=== PATIENT | female | born 1965 | race Caucasian/White ===

== ENCOUNTER 2021-04-09 10:33 | Outpatient (CLI) | payer OTHER, SELFPAY ==
--- NOTE | ~2021-04-09 | XR_ITS ---
XR knee LT 3V 04/09/2021 11:03 INDICATION: Osteoarthritis PROCEDURE: 3 views left knee COMPARISON: No prior studies for comparison. FINDINGS: Fracture, dislocation or subluxation is not identified. No significant joint space narrowin g. No joint effusion. The soft tissues appear within normal limits. No foreign bodies are identified . IMPRESSION: 1: No significant bone or joint abnormality. Reviewed, dictated and finalized at location A.
--- NOTE | ~2021-04-09 | XR_ITS ---
XR knee RT 3V 04/09/2021 11:03 INDICATION: Right knee pain PROCEDURE: 3 views right knee COMPARISON: No prior studies for comparison. FINDINGS: Fracture, dislocation or subluxation is not identified. No significant joint effusion. The soft tissues appear within normal limits. No foreign bodies are identified. IMPRESSION: 1: NO ACUTE BONE OR JOINT ABNORMALITY IDENTIFIED. Reviewed, dictated and finalized at location A.
--- NOTE | ~2021-04-09 | XR_ITS ---
XR hip BI 2V w AP pelvis DATE: 04/09/2021 11:03 INDICATION: Osteoarthritis TECHNIQUE: AP pelvis. AP and lateral views of each hip. COMPARISON: None FINDINGS: No pelvic fracture or bone destruction. The pubic symphysis and sacroiliac joints are intac t. Hip joint spaces appear symmetric and relatively preserved. No fracture or dislocation, avascular necrosis of either hip. There is a 12 mm benign-appearing lucency with sclerotic margins at the upper lateral left femoral ne ck area There is a smooth chronic approximately 6.6 x 11 mm bony density at the upper aspect of the left grea ter trochanter. IMPRESSION: Benign findings of left hip Reviewed, dictated and finalized at location A. IMPRESSION: Benign findings of left hip
== END 2021-04-09 10:34 | disposition home or self-care (01) ==
LOC: ANHIMG 10:38
PROVIDERS: PCP Internal Medicine; Visit Provider Internal Medicine
DX: M19.90 Unspecified osteoarthritis, unspecified site (principal)
CPT/HCPCS: 73521; 73562

== ENCOUNTER 2021-04-16 07:47 | Outpatient (CLI) | payer OTHER, SELFPAY ==
--- NOTE | ~2021-04-16 | NM_ITS ---
NM stress w perf spect multi Procedure: The patient was stressed using Modified Camden protocol. Prior to the end of exercise 32.5 mCi Tc 99m IV administered. Rest imaging performed following administration of 10.5 mCi Tc 99m IV. Images were reformatted into short axis, horizontal and vertical long axis sections for visual and q uantitative analysis. Indication: Chest pain Comparison: None Findings: Computer assisted qualitative and quantitative analysis of the immediate and delayed images revealed normal left ventricular perfusion without evidence of fixed or reversible perfusion abnorma lity to suggest ischemia or infarction. Normal left ventricular cavity size, wall motion and ejectio n fraction. Left ventricular ejection fraction measures 75%. Impression: 1: No scintigraphic evidence of resting or stress induced perfusion abnormality. 2: Normal left ventricle ejection fraction measuring 75%. Reviewed, dictated and finalized at location A. Impression: 1: No scintigraphic evidence of resting or stress induced perfusion abnormality . 2: Normal left ventricle ejection fraction measuring 75%.
--- NOTE | 2021-04-16 07:53 | ECHO_ITS ---
Patient Info Name: Velia Joyner Age: 56 years : 1965 Gender: Female Ht: 63 in Wt: 138 lbs BSA: 1.68 m2 HR: 72 bpm BP: 141 / 90 mmHg Heart Rhythm: Sinus Rhythm Exam Date: 04/16/2021 8:02 AM Exam Location: [facility] Pulmonary Patient Status: Outpatient Admit Date: 04/16/2021 Staff Ordering Physician: Daniel Olmedo DO Kennel Hand: Vanda Park RDCS Attending Provider: Daniel Olmedo DO Exam Type: CA echo doppler color flow Study Info Indications R07.89 - Other chest pain Complete two-dimensional, color flow and Doppler transthoracic echocardiogram is performed. Summary 1. Complete two-dimensional, color flow and Doppler transthoracic echocardiogram is performed. 2. Left ventricular chamber dimension is normal. 3. Left ventricular systolic function is normal, estimated at 60-65%. 4. The left ventricular diastolic function is abnormal. 5. E/e' 10 is mildly elevated. Left Ventricle E/e' 10 is mildly elevated. Left ventricular chamber dimension is normal. Left ventricular systolic function is normal, estimated at 60-65%. The left ventricular diastolic function is abnormal. Right Ventricle Right ventricular chamber dimension is normal. Right ventricular systolic function is normal. Left Atria Left atrial chamber dimension is normal. Right Atria Right atrial chamber dimension is normal. Aortic Valve The aortic valve is trileaflet. There is no aortic valve stenosis. There is no aortic valve regurgitation. Pulmonic Valve There is no pulmonic regurgitation. Mitral Valve There is no mitral valve stenosis. There is no mitral valve regurgitation. Tricuspid Valve There is no tricuspid valve regurgitation. Pericardium/Pleural There is no pericardial effusion. Inferior Vena Cava Normal inferior vena cava with >50% collapse upon inspiration consistent with normal right atrial pressure, 5 mmHg. Aorta The aortic root size at the sinus of Valsalva is normal. Left Ventricular Outflow Tract Name Value Normal LVOT 2D LVOT Diameter 2.2 cm LVOT Doppler LVOT Peak Gradient 7 mmHg LVOT Mean Gradient 4 mmHg LVOT VTI 31 cm LVOT VTI/AV VTI Ratio 0.8 LVOT Stroke Volume 123 ml LVOT CO 7.8 l/min LVOT CI 4.6 l/min/m2 Pulmonic Valve Name Value Normal RVOT Doppler RVOT Peak Gradient 1 mmHg PV Doppler PV Peak Gradient 3 mmHg Mitral Valve Name Value Normal
--- NOTE | 2021-04-16 07:53 | EST_ITS ---
Patient Info Name: Velia Joyner Age: 56 years : 1965 Gender: Female Ht: 63 in Wt: 138 lbs BSA: 1.68 m2 HR: 67 bpm BP: 148 / 95 mmHg Exam Date: 04/16/2021 10:02 AM Exam Location: [facility] Stress Patient Status: Outpatient Admit Date: 04/16/2021 Staff Ordering Physician: Daniel Olmedo DO Attending Provider: Daniel Olmedo DO Exercise Technologist: Елена Winkler CT Exercise Physician: Daniel Olmedo DO Exam Type: CA stress test treadmill w NM Study Info A nuclear stress test was performed. Summary 1. 1. Negative [place] exercise stress test for ischemic ST changes by ECG criteria. 2. 2. Good functional capacity, achieving 10 METs of workload. 3. 3. Appropriate HR response to exercise. 4. 4. Appropriate HR recovery at 1 minute post exercise. 5. 5. Nuclear scan to follow and will be reported separately. Please correlate with it. 6. 6. Patient informed of the above results. Protocol: [place]den Stress ECG Details Stage: REST Duration (min): 1 min : 3 sec Speed (mph): 0.0 Grade (%): 0 HR (bpm): 69 SBP (mmHg): 148 DBP (mmHg): 95 METS: --- Stage: REST Duration (min): 10 min : 55 sec Speed (mph): 0.0 Grade (%): 0 HR (bpm): 72 SBP (mmHg): 148 DBP (mmHg): 95 METS: --- Stage: STAGE 1 Duration (min): 1 min : 0 sec Speed (mph): 1.7 Grade (%): 10 HR (bpm): 105 SBP (mmHg): 148 DBP (mmHg): 95 METS: --- Stage: STAGE 1 Duration (min): 2 min : 0 sec Speed (mph): 1.7 Grade (%): 10 HR (bpm): 108 SBP (mmHg): 148 DBP (mmHg): 95 METS: --- Stage: STAGE 1 Duration (min): 3 min : 0 sec Speed (mph): 1.7 Grade (%): 10 HR (bpm): 110 SBP (mmHg): 158 DBP (mmHg): 93 METS: --- Stage: STAGE 2 Duration (min): 1 min : 0 sec Speed (mph): 2.5 Grade (%): 12 HR (bpm): 114 SBP (mmHg): 158 DBP (mmHg): 93 METS: --- Stage: STAGE 2 Duration (min): 2 min : 0 sec Speed (mph): 2.5 Grade (%): 12 HR (bpm): 121 SBP (mmHg): 162 DBP (mmHg): 98 METS: --- Stage: STAGE 2 Duration (min): 3 min : 0 sec Speed (mph): 2.5 Grade (%): 12 HR (bpm): 125 SBP (mmHg): 162 DBP (mmHg): 98 METS: --- Stage: STAGE 3 Duration (min): 1 min : 0 sec Speed (mph): 3.4 Grade (%): 14 HR (bpm): 136 SBP (mmHg): 163 DBP (mmHg): 102 METS: --- Stage: STAGE 3 Duration (min): 2 min : 0 sec Speed (mph): 3.4 Grade (%): 14 HR (bpm): 145 SBP (mmHg): 163 DBP (mmHg): 102 METS: --- Stage: STAGE 3 Duration (min): 2 min : 15 sec Speed (mph): 3.4 Grade (%): 14 HR (bpm): 145 SBP (mmHg): 163 DBP (mmHg): 102 METS: --- Stage: RECOVERY Duration (min): 0 min : 14 sec Speed (mph): 1.5 Grade (%): 0 HR (bpm): 145 SBP (mmHg): 190 DBP (mmHg): 112 METS: --- Rest HR: 72 bpm Peak HR: 146 bpm Rest Sys BP: 148 mm
== END 2021-04-16 07:48 | disposition home or self-care (01) ==
PROVIDERS: PCP Internal Medicine; Visit Provider Internal Medicine Cardiovascular Disease
DX: R06.00 Dyspnea, unspecified (principal); R07.9 Chest pain, unspecified
CPT/HCPCS: 77063; 77067; 78452; 93017; 93306; A9502

== ENCOUNTER 2021-04-16 14:46 | Outpatient (CLI) | payer OTHER, SELFPAY ==
--- NOTE | ~2021-04-16 | MM_ITS ---
EXAMINATION: MM scrn remedios implant BI w yandy HISTORY: Screening mammogram TECHNIQUE: Craniocaudal and mediolateral oblique 3-D tomosynthesis images with implant displacement a nd synthetic 2-D images were generated. Craniocaudal and mediolateral oblique views of the breasts wi thout implant displacement were obtained using full field digital mammography. CAD analysis was submi tted and interpreted. COMPARISON: 06/22/2007 bilateral implant digital screening mammogram BREAST PARENCHYMAL COMPOSITION: There are scattered areas of fibroglandular density. FINDINGS: Status post bilateral augmentation mammoplasty There is no evidence of suspicious mass, claudia cification, or architectural distortion to suggest malignancy in either breast. There has been no ashley picious interval change. IMPRESSION: 1. No mammographic evidence of malignancy. 2. Recommend routine screening mammography in one year. BI-RADS Category 1: Negative Reviewed, dictated and finalized at location A.
== END 2021-04-16 14:47 | disposition home or self-care (01) ==
LOC: ANHIMG 14:48
PROVIDERS: PCP Internal Medicine; Visit Provider Internal Medicine
DX: Z12.31 Encounter for screening mammogram for malignant neoplasm of breast (principal)
CPT/HCPCS: 77063; 77067

== ENCOUNTER 2021-09-10 12:44 | Outpatient (CLI) | payer OTHER, SELFPAY ==
--- NOTE | 2021-09-10 16:20 | WPDPFTINT ---
PFT Procedure Performed PFT Procedure Performed Spirometry with Pre/Post Bronchodilator Plethysmography (Lung Vol) Diffusing Cap (DLCO) Flow Vol Loop PFT Interpretation This is a pulmonary function test with pre and post-bronchodilator spirometry, plethysmography and diffusing capacity. The test was performed and results interpreted in accordance with the 2019 and 2005 ATS/ERS Task Force guidelines respectively using the Global Lung Function Initiative-2012 reference equations. Patient demonstrated good effort and cooperation. Reproducibility criteria were met. The quality of the pre bronchodilator spirometry maneuver was Grade C and post bronchodilator spirometry maneuver was Grade B. Findings: Spirometry: The contour of the inspiratory and expiratory flow tracing are normal. The pre bronchodilator FVC is 3.54 L, 105% predicted. The pre bronchodilator FEV1 is 2.57 L, 96% predicted. The FEV1: FVC ratio 73%. The post bronchodilator FVC is 3.62 L, representing a 2% increase. The post bronchodilator FEV1 is 2.92 L, representing a 14% increase. The post bronchodilator FEV1: FVC ratio is 81%. Plethysmography: The total lung capacity is 5.74 L, 110% predicted. The functional residual capacity is 3.09 L, 105% predicted. The residual volume is 2.20 L, 111% predicted. Diffusing capacity: The diffusing capacity on adjusted for hemoglobin is 18.6, 83% predicted. The diffusing capacity adjusted for alveolar volume is 3.70, 83% predicted. Impression: The spirometry is normal without evidence of an obstructive abnormality. There is significant improvement after inhaling a single dose of albuterol. The lung volumes are normal. The diffusing capacity is normal. There are no prior studies for comparison
== END 2021-09-10 12:45 | disposition home or self-care (01) ==
PROVIDERS: Visit Provider Internal Medicine Cardiovascular Disease
DX: R06.00 Dyspnea, unspecified (principal)
CPT/HCPCS: 94060; 94726; 94729

== ENCOUNTER 2021-11-27 08:02 | Outpatient (CLI) | payer OTHER, SELFPAY ==
--- NOTE | 2021-12-03 12:45 | WPDHOMESLEEP ---
Sleep Study - Home Unattended Date of Study: 11/27/21 Ordering Provider: Daniel Olmedo DO Interpreting Provider: Rebekah Romano MD Home Sleep Study Type: Apnea Link Air Height: 1.68 m Weight: 64.864 kg Body Mass Index: 23.1 Neck Circumference (inches): 12.75 [place]: 9 Reason for Sleep Study Longstanding insomnia, waking at night feeling panicked and nauseated Sleep History Velia Joyner is a 56-year-old female with a recent diagnosis of mild diastolic dysfunction. She feels that sometimes her heart stops beating and then beats rapidly. She does not feel rested on waking. Most of her life she has had insomnia. She has started waking up feeling extreme panic with nausea. She reports vomiting at 3:00 a.m. I am not sure if that is a regular occurrence or if this was an isolated incident. She has a difficult time falling asleep and staying asleep. Her father was a light sleeper. She frequently awakens from sleep feeling short of breath. She rarely awakens at night with heartburn, belching or coughing. She does not snore and does not snore loudly enough that others complain. She does not have trouble sleeping with a cold. She frequently finds herself gasping for breath at night. She occasionally has breathing problems at night. She frequently sweats excessively at night. She constantly has irregular heartbeats and feels that her heart is pounding. She constantly falls asleep during the day. She does not fall asleep involuntarily or while driving. She does not have loss of muscle tone with strong emotion. She has been unemployed since 2016 with the diagnosis of a pancreatic mass. For this reason she does not have trouble at work due to excessive sleepiness but the excessive sleepiness does impact the quality of her life. She does not feel paralyzed on waking or falling asleep. She does not have vivid dreamlike scenes upon awakening or falling asleep. She is frequently anxious about going to sleep. She does not have nightmares. She does not have any dream recall. She occasionally has racing thoughts. She occasionally feels sad or depressed. She constantly has anxiety and muscular tension. She occasionally notices parts her body jerking. She has restless legs syndrome and constantly has crawling and aching feelings in her legs. She frequently has leg pain during the night. She frequently has morning jaw pain. She occasionally grind her teeth during sleep. She constantly is bothered by pain during the day. She frequently has awakened by pain at night. She constantly wakes up feeling stiff in the morning, constantly has sore achy muscles and pain in the neck and spine. She has memory problems and concentration difficulties. Normal bedtime is 11:00, taking 30 minutes or longer to fall asleep, typically waking 1-2 times at night to go to the bathroom, then she may do dishes her what you to videos. She may stay awake for 30 minutes or may last a couple of hours. She has difficulty returning to sleep. She wakes the morning between 6:00 a.m. and 7:00 a.m.. She takes a nap in the afternoon lasting 1-4 hours. A short nap of 10-15 minutes is not refreshing at all. She wakes up feeling refreshed after an average night of sleep and ready to tackle the day however she requires a nap between 1 and 4:00 p.m.. Habits: Tobacco quit 30 years ago. Caffeine 2 cups of coffee a day. No alcohol or recreational drugs. [facility] Past Medical History Medical History (Updated 12/03/21 @ 13:25 by Rebekah Romano MD) Acid reflux Anxiety Seasonal allergies Surgical History Surgical History (Updated 12/03/21 @ 13:22 by Rebekah Romano MD) History of abdominoplasty History of resection of pancreas History of tonsillectomy Social History Social History Smoking packs per day: 1 Smoking cigarettes per day: 20.0 Years smoked: 8 Smoking pack-years: 8.00 Smoking status: Ne
[2021-12-03 13:11] VITALS: BMI 23.1
== END 2021-11-28 13:09 | disposition home or self-care (01) ==
LOC: ANHCSM 08:03
PROVIDERS: Visit Provider Internal Medicine Cardiovascular Disease
DX: G47.10 Hypersomnia, unspecified (principal); G47.9 Sleep disorder, unspecified
CPT/HCPCS: 95806

== ENCOUNTER 2022-08-02 22:48 | Emergency (ER) | payer OTHER, SELFPAY ==
--- NOTE | 2022-08-03 01:04 | ED.GENADULT ---
HPI - General Adult General Chief complaint: Skin/Abscess/Foreign Body Stated complaint: possible infection to RUE Time Seen by Provider: 08/03/22 00:12 History of Present Illness HPI narrative: This is a 57-year-old female presenting to ED with some abrasions over her hands and tracking up her arm. Patient has been spending the last several days in hospital after her daughter was declared brain after an MVC. Patient is unsure when the abrasions and the tracking developed. she denies nausea vomiting, fever, chills or diarrhea. She says this has happened in the past and required IV antibiotics. 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 Related Data Home Medications Medication Instructions Recorded Confirmed nortriptyline 25 mg capsule 25 mg PO QHS 03/24/21 07/07/22 sumatriptan succinate 25 mg tablet 25 mg PO ONCE 03/24/21 07/07/22 (Imitrex) aspirin 81 mg tablet,delayed 81 mg PO DAILY 04/23/21 07/07/22 release (Adult Low Dose Aspirin) Allergies Allergy/AdvReac Type Severity Reaction Status Date / Time latex Allergy Intermediate unknown Verified 07/07/22 09:56 [facility] Past Medical History Medical History Acid reflux Anxiety Seasonal allergies Surgical History Surgical History History of abdominoplasty History of resection of pancreas History of tonsillectomy Social History Social History Smoking packs per day: 1 Smoking cigarettes per day: 20.0 Years smoked: 8 Smoking pack-years: 8.00 Smoking status: Never smoker Tobacco type: cigarettes Second hand tobacco smoke exposure: Yes Smoking end date: 07/26/90 Alcohol intake: never Substance use: never Substance use type: does not use and marijuana Exam Narrative: APPEARANCE: No apparent distress. Head: atraumatic. EYES: EOMI, NOSE: Atraumatic NECK: Trachea midline RESPIRATORY: No increased rate of breathing CARDIOVASCULAR: RRR, ABDOMINAL: Non-distended MUSCULOSKELETAl: No obvious deformities NEURO: Alert. Moving 4/4 extremities SKIN:: patient has abrasions with some ulceration over her right palm with red tracking up her arm. Consistent with lymphangitis. left palm has some abrasion with no tracking. PSYCHIATRIC: Normal affect Medical Decision Making MDM Narrative Medical decision making narrative: -Presentation: 57-year-old female presenting with soft tissue infection and lymphangitis -DDX includes but is not limited to: staph, MRSA, cellulitis /lymphangitis -Co-morbidities complicating care: none -External Chart Review: none -Hx from independent Sources: -Discussion of Management/Consultants: none -Independent interpretation of studies: clinical diagnosis-lymphangitis Dx tests considered but not ordered: considered lab work or imaging but not feel it would add to the case. -Shared decision making: After discussing the patient's care we decided to give her a course of IV antibiotics here in the emergency department and then discharge her on oral clindamycin as she is a MRSA carrier. -Procedures: None -Interventions: clindamycin 600 mg IV Discharge Plan Discharge Clinical Impression: Lymphangitis Patient Disposition: Home, Self-Care Condition: Stable Instructions: Antibiotic Form, Lymphangitis (ED) Additional Instructions: You were seen in the ED for a soft tissue infection lymphangitis. Your given IV antibiotics. Please complete your 7 day course of clindamycin. Please return to your physician if you feel the infection is not improving after 24-48 hours. you can always return emergency heart failure condition is getting worse. Prescriptions: New clindamycin HCl 150 mg capsule 450 mg PO Q8H 7 Days Qty: 63 0RF No Action sumatriptan succinate [Imitrex] 25 mg tablet 25 mg PO ONCE nortriptylin
[2022-08-03] MEDS: CLINDAMYCIN 600 MG/D5W 50 ML 600 MG/50 ML PIGGYBACK 100 MG IVPB (01:13)
== END 2022-08-03 02:06 | disposition home or self-care (01) ==
PROVIDERS: Emergency Provider Emergency Medicine
DX: I89.1 Lymphangitis (principal); K21.9 Gastro-esophageal reflux disease without esophagitis; F41.9 Anxiety disorder, unspecified; Z87.891 Personal history of nicotine dependence; Z79.82 Long term (current) use of aspirin
CPT/HCPCS: 96365; 99284

== ENCOUNTER 2023-02-10 20:34 | Emergency (ER) | payer OTHER, SELFPAY ==
[2023-02-10 20:35] VITALS: BP 145/80; PULSE 88; RESP 16; TEMP 36.1; O2SAT 99
--- NOTE | 2023-02-10 21:54 | ED.DENTAL ---
HPI - Dental/Oral General Chief complaint: Dental/Oral Stated complaint: toothache Time Seen by Provider: 02/10/23 21:46 History of Present Illness HPI Narrative: 57-year-old female reports for evaluation for pain and swelling to her right lower tooth. Patient states her filling broke about 3 weeks ago and she developed pain and swelling to her tooth a couple of days ago. States she is on Medicaid and been trying to get into a dentist, she has an appointment scheduled on March 01. She denies difficulty swallowing or breathing, fever, nausea or vomiting. Related Data Home Medications Medication Instructions Recorded Confirmed nortriptyline 25 mg capsule 25 mg PO QHS 03/24/21 02/03/23 sumatriptan succinate 25 mg tablet 25 mg PO ONCE 03/24/21 02/03/23 (Imitrex) aspirin 81 mg tablet,delayed 81 mg PO DAILY 04/23/21 02/03/23 release (Adult Low Dose Aspirin) Allergies Allergy/AdvReac Type Severity Reaction Status Date / Time latex Allergy Intermediate unknown Verified 02/03/23 14:20 Review of Systems Review of Systems: CONSTITUTIONAL: Denies fever, chills EYES: Denies visual changes, redness, or discharge. ENT: See HPI CARDIOVASCULAR: Denies chest pain, palpitations, or edema. RESPIRATORY: Denies cough or dyspnea. GASTROINTESTINAL: Denies abdominal pain, nausea, vomiting, or diarrhea. GENITOURINARY: Denies dysuria or hematuria. SKIN: Denies rash or itching. MUSCULOSKELETAL: Denies back pain, joint pain, or myalgia. NEUROLOGIC: Denies headache, numbness, dizziness, or weakness. PSYCHIATRIC: Denies anxiety or depression. [facility] Past Medical History Medical History Acid reflux Anxiety Generalized anxiety disorder Seasonal allergies Surgical History Surgical History History of abdominoplasty History of resection of pancreas History of tonsillectomy Social History Social History Smoking packs per day: 1 Smoking cigarettes per day: 20.0 Years smoked: 8 Smoking pack-years: 8.00 Smoking status: Never smoker Tobacco type: cigarettes Second hand tobacco smoke exposure: Yes Smoking end date: 07/26/90 Alcohol intake: never Substance use: never Substance use type: does not use and marijuana Lack of Transportation: No Lack of Food: Never True Current Housing: I Have Housing Concerned About Future Housing: No Difficulty Paying Gas/Electric Bills: No Difficulty Paying for Meds: No Currently Unemployed: No Education: High School Diploma/GED Difficulty w/ Childcare or Family Care: No Exam Narrative: GENERAL: Well-appearing, in no acute distress. Patient resting comfortably in exam bed. She is pleasant and conversational. HEAD: Normocephalic ENT: Nares clear. Mucous membranes moist. Lower right molar with caries and fractured tooth. No periapical abscess. Floor of mouth is soft and without crepitus. No tonsillar edema or exudates. Uvula normal. Edema to the right mandible without induration or fluctuation. No submandibular swelling. No trismus. Patient tolerating secretions. NECK: Supple. CHEST: No respiratory distress. Clear to auscultation, no adventitious breath sounds. HEART: Regular rate and rhythm. No murmur heard. Normal peripheral pulses. EXTREMITIES: Normal range of motion. No edema. SKIN: Warm, dry, no rash. NEURO: No focal deficits. Alert and oriented x3. PSYCH: Normal mood and affect. Course Vital Signs Vital signs: Vital Signs Temperature 97 F L 02/10/23 20:35 Pulse Rate 88 02/10/23 20:35 Respiratory Rate 16 02/10/23 20:35 Blood Pressure 145/80 H 02/10/23 20:35 Pulse Oximetry 99 02/10/23 20:35 Oxygen Delivery Room Air 02/10/23 20:35 Temperature 98 F 02/10/23 22:19 Pulse Rate 71 02/10/23 22:19 Respiratory Rate 14 02/10/23 22:19 Blo
[2023-02-10] MEDS: HYDROcodone/acetaminophen (*CRX) 5-325 MG TABLET 1 TAB PO (22:16)
[2023-02-10] MEDS: AMOXICILLIN/CLAVULANATE K 875-125 MG TAB 1 TABLET PO (22:16)
[2023-02-10 22:19] VITALS: BP 128/92; PULSE 71; RESP 14; TEMP 36.6; O2SAT 100
== END 2023-02-10 22:20 | disposition home or self-care (01) ==
PROVIDERS: Emergency Provider Physician Assistant; PCP Internal Medicine
DX: K08.89 Other specified disorders of teeth and supporting structures (principal); K21.9 Gastro-esophageal reflux disease without esophagitis; F41.1 Generalized anxiety disorder; Z87.891 Personal history of nicotine dependence; Z79.82 Long term (current) use of aspirin
CPT/HCPCS: 99283; A9270

== ENCOUNTER 2023-06-02 09:48 | Outpatient (CLI) | payer OTHER, SELFPAY ==
--- NOTE | 2023-06-02 10:01 | ECG_ITS ---
Measurements Intervals [place] Rate: 74 P: 77 ME: 128 QRS: 72 QRSD: 110 T: 76 QT: 398 QTc: 443 Interpretive Statements SINUS RHYTHM INFERIOR INFARCT, AGE INDETERMINATE ANTEROLATERAL INFARCT, AGE INDETERMINATE BASELINE ARTIFACT- I, III, AVL ABNORMAL ECG NO PREVIOUS ECG AVAILABLE FOR COMPARISON Electronically Signed On 06-02-2023 10:37:06 BOTTOMING ROOM SUPERVISOR by Daniel Olmedo D.O.
[2023-06-02 10:32] LABS: Anion Gap 3 mmol/L (8-16); Blood Urea Nitrogen 14 mg/dL (7-17); Carbon Dioxide 32 mmol/L (22-30); Chloride 104 mmol/L (98-107); Estimated Glomerular Filt Rate > 60; Glucose 94 mg/dL (65-110); Potassium 4.1 mmol/L (3.4-5.0); Sodium 139 mmol/L (137-145)
[2023-06-02 10:33] LABS: Prothrombin Time 13.1 Seconds (11.1-14.7)
[2023-06-02 10:34] LABS: Partial Thromboplastin Time 29.3 SECONDS (22.3-36.8)
== END 2023-06-02 09:49 | disposition home or self-care (01) ==
LOC: ANHSURGERY 09:52
PROVIDERS: Anesthesiology; PCP Internal Medicine; Visit Provider Orthopaedic Surgery
DX: I51.89 Other ill-defined heart diseases (principal); K76.0 Fatty (change of) liver, not elsewhere classified; Z01.818 Encounter for other preprocedural examination
CPT/HCPCS: 36415; 80048; 85610; 85730; 93005

== ENCOUNTER 2023-06-03 01:35 | Day surgery (SDC) | payer OTHER, SELFPAY ==
[2023-05-31 12:48] VITALS: BMI 22.6
--- NOTE | 2023-05-31 12:58 | PC.NURSE ---
Report to the Outpatient Waiting Room, entrance under the green pavilion located off [facility], at time 10:00 on date 06/03/23. Planned Procedure Time: 12:00. Time changes happen often and if your time is changed the preop area will call you the afternoon before. - You and your visitor will be asked to self-screen and do not enter if you have any COVID symptoms. - A mask is optional within the hospital at this time. Patients may have clear liquids (water, carbonated beverages, clear teas, apple juice) until 3 hours prior to surgery (9:00) with a maximum of 20 ounces. - No food from midnight until time of surgery Take the following medications with a SIP of water the morning of surgery: CLONAZEPAM, INHALER IF NEEDED DO NOT STOP ANY OF YOUR OTHER PRESCRIPTION MEDICATIONS PRIOR TO SURGERY ?EXCEPT THE FOLLOWING Medications to discontinue per physician: VITAMINS/SUPPLEMENTS Date to take last dose: NO MORE UNTIL AFTER SURGERY PT HAS ALREADY STOPPED ASPIRIN Please no make-up, nail burkinan, hairspray, perfume, deodorant, or body powder the day of surgery. No jewelry (including any body piercings) or valuables the day of surgery, leave them at home. Please take a shower or bath the night before, or the morning of, surgery with an antibacterial soap. Wear comfortable, loose fitting clothing. - Jewelry must be removed prior to entering the operating room. Rings and piercings that are not removed may be cut off. - The hospital will not accept responsibility for valuables. - Please leave all valuables, including medications, at home the day of surgery. If you are going home after surgery, a licensed armored car guard and driver must drive you home. - NO public transportation without another adult if you receive anesthesia. - We recommend that an adult stay with you for 24 hours following discharge. - We also recommend that you do not drive, make important decision, drink alcoholic beverages, or take any drugs that were not prescribed by your health care provider for at least 24 hours after your discharge time. Follow any additional instructions given to you from your surgeon. If you or anyone in your household have experienced Covid symptoms in the past week, please notify your surgeon or the nurse liaison at the phone number below for possible testing. Telephone instructions given to PT - ISSA SHELLEY and asked if any additional questions and then verbalized understanding. Patient advised to call surgeon office or pre surgery nurse liaison [phone] if any additional questions.
[2023-06-03] VITALS (10 sets, daily range): BP systolic 118–152; BP diastolic 77–92; PULSE 77–96; RESP 12–16; TEMP 36.2–36.8; O2SAT 82–100
--- NOTE | ~2023-06-03 | XR_ITS ---
EXAMINATION: XR surgery orthopedic DATE: 06/03/2023 13:22 INDICATION: Left foot hallux valgus correction TECHNIQUE: 3 fluoroscopic images of the left forefoot were obtained during procedure performed by Dr. Nieto. Radiologist was not present for the imaging or procedure. The amount of fluoroscopy time us ed during this procedure was 0.1 minutes. COMPARISON: 05/11/2023 FINDINGS: Interval bunionectomy at the medial head of the left first metatarsal and realignment chevron osteoto my at the neck of the first metatarsal. There is a second likely medial sided closing wedge osteotomy with staple fixation at the proximal metaphyseal region of the first proximal phalanx. There is no n ear-anatomic alignment of the axis of the first ray. Mild osteoarthritis the first metatarsophalangea l and multiple interphalangeal joints. IMPRESSION: 1. Fluoroscopy utilized during left hallux valgus correction as detailed above. See procedure note fo r further detail. Reviewed, dictated and finalized at location A. AINABILITY PROJECT COORDINATOR IMPRESSION: 1. Fluoroscopy utilized during left hallux valgus correction as detailed above. See procedure note for further detail.
[2023-06-03] MEDS: ACETAMINOPHEN 500 MG TABLET 1000 MG PO (11:00)
[2023-06-03] MEDS: KETOROLAC 15 MG/ML VIAL (*BKC) IV PUSH (11:00)
--- NOTE | 2023-06-03 11:43 | WPDHPUPDATE1 ---
History and Physical Update Update Date/Time: 06/03/23 11:43 History and Physical has been reviewed, including an updated exam of the patient. There are NO changes in the patient's condition. Risks, benefits, and alternatives have been discussed and questions answered. Patient agrees to proceed with procedure.
--- NOTE | 2023-06-03 11:47 | WPDANESEPPF ---
Anes - Initial Pre Proc Eval Procedure: Operation Date: 06/03/23 12:00 Proposed Procedures p Left Hallux Valgus Correction, First Metatarsal Osteotomy, Possible Phalangeal Osteotomy - Edgar Nieto MD Date/Time: 06/03/23 11:47 Surgeon: Edgar Nieto MD Pre Op Diagnosis: left hallux valgus Patient Data Age: 58 Gender: F Height: 1.68 m Weight: 63.5 kg Allergies Allergy/AdvReac Type Severity Reaction Status Date / Time latex Allergy Intermediate Swelling Verified 05/31/23 12:45 adhesive tape Allergy Blister Verified 05/31/23 12:45 Home Medications Medication Instructions Recorded Confirmed Type nortriptyline 25 mg capsule 25 mg PO QHS 03/24/21 05/31/23 History sumatriptan succinate 25 mg tablet 25 mg PO ONCE 03/24/21 05/31/23 History (Imitrex) aspirin 81 mg tablet,delayed 81 mg PO DAILY 04/23/21 05/31/23 History release (Adult Low Dose Aspirin) albuterol sulfate 90 mcg/actuation 2 inh inhalation Q4H PRN shortness 12/28/22 05/31/23 Rx aerosol inhaler of breath or wheezing #8.5 grams cholecalciferol (vitamin D3) 1,250 1,250 mcg PO WEEKLY #12 caps 12/28/22 05/31/23 Rx mcg (50,000 unit) capsule clonazepam 0.5 mg tablet 0.25 - 0.5 mg PO DAILY PRN anxiety 04/09/23 05/31/23 Rx #30 tabs B-complex with vitamin C 1 tablet PO DAILY 05/17/23 05/31/23 History pantoprazole 20 mg tablet,delayed 20 mg PO QAM 05/17/23 05/31/23 History release (Protonix) Patient hx anesthesia problems: post op nausea/vomiting Family hx anesthesia problems: none Results Review: All pre-operative results and documents have been reviewed as part of the pre-operative evaluation. [facility] Past Medical History Medical History Acid reflux Acquired hallux valgus of left foot Anxiety Generalized anxiety disorder Hallux valgus (acquired), right foot Seasonal allergies Surgical History Surgical History History of abdominoplasty History of resection of pancreas History of tonsillectomy Social History Social History Smoking packs per day: 0.5 Smoking cigarettes per day: 10.0 Years smoked: 10 Smoking pack-years: 5.00 Smoking status: Former smoker Tobacco type: cigarettes Second hand tobacco smoke exposure: Yes Smoking end date: 07/26/90 Alcohol intake: never Substance use: current Substance use type: marijuana Lack of Transportation: No Lack of Food: Never True Current Housing: I Have Housing Concerned About Future Housing: No Difficulty Paying Gas/Electric Bills: No Difficulty Paying for Meds: No Currently Unemployed: No Education: High School Diploma/GED Difficulty w/ Childcare or Family Care: No Living arrangements: alone Spiritual care concerns: No Anes - Eval Final PreProcedure Day of Procedure 06/03/23 11:47 Patient weight: normal Heart: regular rate and rhythm Lungs: clear to auscultation Airway: Mallampati scale class II Neurological: alert and oriented Last oral intake: >/= 8 hours ASA classification: III Emergent: no Anesthetic plan: proceed Anesthesia type and monitoring: general LMA and standard monitoring Results Review: All pre-operative results and documents have been reviewed as part of the pre-operative evaluation. Informed Consent: The patient's anesthetic plan and its attendant risks and benefits were discussed with the patient/family/POA. Questions were solicited and answers provided to the satisfaction of the patient/family/POA.
[2023-06-03] MEDS: ceFAZolin 2 GM/D5W 50 ML 2 GM/50 ML BAG IVPB (12:09)
[2023-06-03] MEDS: BUPivacaine HCL 0.5% 10 ML AMP 20 ML INFILTRATE (12:37)
[2023-06-03] MEDS: LACTATED RINGERS 1,000 ML 30 ML IV CONT ×2 (13:22)
--- NOTE | 2023-06-03 13:31 | W.PM.PROC2 ---
Procedure Note - Detailed Date of Procedure 06/03/23 Pre-op Diagnosis left hallux valgus Post-op Diagnosis Same Procedure Performed Left hallux valgus correction Surgeon Edgar Nieto MD Promotions Team Leader 1st speech therapy assistant Anesthesia General Indications 58 year moderate severe left hallux valgus deformity. Failed non operative treatment inserts, toe spacers shoes. Pain weight-bearing daily activity. Presents for operative treatment. Description of Procedure After informed consent was given, the operative extremity was marked in the preoperative holding area. The patient received intravenous antibiotics. The patient was brought to the operating room where they underwent a general anesthetic by the anesthesia team. The patient was positioned supine on the operating room table. A time-out was performed confirming the patient, site of the surgery, and the plan for surgery. The left lower extremity was then prepped and draped in the usual sterile surgical fashion using ChloraPrep skin solution. Foot and ankle were exsanguinated and a calf tourniquet was inflated to 225 mmHg pressure. A longitudinal incision was then made along the medial border of the 1st ray centered over the medial eminence with a #15 blade knife. Hemostasis was controlled with electric cautery. The dorsal and plantar sensory nerves were identified and retracted bluntly. A medial capsulotomy was then performed. This was reflected off the medial eminence. The joint was inspected for evaluation of degenerative changes. A lateral release was then performed through the joint with a #15 blade knife. The medial eminence was then resected with a sagittal saw in line with the medial border of the foot. Correction of the deformity was performed with a chevron-shaped osteotomy performed with sagittal saw from medial to lateral through the distal portion of the 1st metatarsal. The lateral portion of the bone cut was completed with an osteotome to protect the soft tissue. The capital fragment was then translated laterally and impacted on to the 1st metatarsal shaft. Lateral translation and impaction corrected both hallux valgus deformity and correction of the distal metatarsal articular angle. Temporary fixation was performed and alignment was verified with image intensification. Hallux valgus angle correction, intermetatarsal angle correction and distal metatarsal articular angle were verified. Fixation was achieved with 2.0 millimeter bioabsorbable pins. Two pins were utilized. Image intensification confirmed final alignment. Rotation was verified visually. The wound was then thoroughly irrigated with antibiotic solution. The capsule was repaired through a drill hole in the distal 1st metatarsal with 0 Vicryl interrupted suture. The dorsal limb of the capsule was repaired with 00 Vicryl interrupted suture. Subcutaneous tissue was repaired with 000 Monocryl interrupted suture and the skin approximated with 0000 nylon running suture. Local anesthetic with 0.5% Marcaine plain was injected in the soft tissue. Hallux valgus interphalangeus was still present after correction. [place] osteotomy indicated. Longitudinal incision made over the medial aspect of the proximal phalanx of the hallux. Retractors placed and a osteotomy performed from medial to lateral through the base of the proximal phalanx. Closing wedge osteotomy made medially. Correction of the interphalangeus rotation and fixation achieved with a 9 x 10 mm staple. Good fixation noted. Image intensification confirmed alignment placement hardware. Wound irrigated and the soft tissue closed with 3-0 Monocryl interrupted suture. Skin repaired with 4-0 nylon running suture. Sterile dressing was then applied. Tourniquet was released and good capillary refill in the hallux was verified. The patient was then awoken from anesthesia, extubated in the operating room, and taken to the recovery room in stable condition. All sponge, needle, and instrument count
[2023-06-03] MEDS: fentaNYL CITRATE INJ (*CRX) 100 MCG/2 ML VIAL 25 MCG IV PUSH ×4 (14:05→14:23)
[2023-06-03] MEDS: oxyCODONE HCL (*CRX) 5 MG TAB IR PO (15:14)
== END 2023-06-03 16:20 | disposition home or self-care (01) ==
PROVIDERS: PCP Internal Medicine; Visit Provider Orthopaedic Surgery
PROC: (CPT 28299; principal; 2023-06-03 12:00)
DX: M20.12 Hallux valgus (acquired), left foot (principal); M19.072 Primary osteoarthritis, left ankle and foot; K21.9 Gastro-esophageal reflux disease without esophagitis; F41.1 Generalized anxiety disorder; J30.2 Other seasonal allergic rhinitis; Z87.891 Personal history of nicotine dependence; Z79.82 Long term (current) use of aspirin; Z79.51 Long term (current) use of inhaled steroids; F12.90 Cannabis use, unspecified, uncomplicated
CPT/HCPCS: 28299; 99199; A9270; C1713; J0690; J1100; J1885; J2250; J2405; J2704; J3010; J7120

== ENCOUNTER 2023-11-01 19:58 | Emergency (ER) | payer OTHER, SELFPAY ==
[2023-11-01] VITALS (9 sets, daily range): BP systolic 146–154; BP diastolic 94–98; PULSE 75–84; RESP 12–15; TEMP 36.3; O2SAT 98–100
--- NOTE | 2023-11-01 22:28 | ED.GENADULT ---
HPI - General Adult General Chief complaint: Unspecified Stated complaint: spots in vision Time Seen by Provider: 11/01/23 21:40 History of Present Illness HPI narrative: Patient is a 8-year-old female who presents with a complaint of floaters in the right eye. The patient reports that she had an episode many years ago but then reports that today she had more stress and reported that she has been seeing some streaks and floating behind her right eye the patient reports worse whenever she looks to the side reports no decreased visual acuity reports no focal neurological deficit. Patient reports that she had a ?blood clot in the back of her eye that was related to stress ? Related Data Home Medications Medication Instructions Recorded Confirmed nortriptyline 25 mg capsule 25 mg PO QHS 03/24/21 08/17/23 sumatriptan succinate 25 mg tablet 25 mg PO ONCE 03/24/21 08/17/23 (Imitrex) aspirin 81 mg tablet,delayed 81 mg PO DAILY 04/23/21 08/17/23 release (Adult Low Dose Aspirin) B-complex with vitamin C 1 tablet PO DAILY 05/17/23 08/17/23 pantoprazole 20 mg tablet,delayed 20 mg PO QAM 05/17/23 08/17/23 release (Protonix) Allergies Allergy/AdvReac Type Severity Reaction Status Date / Time latex Allergy Intermediate Swelling Verified 08/17/23 08:01 adhesive tape Allergy Blister Verified 08/17/23 08:01 Review of Systems Review of Systems: A 10 system review of systems was completed on the patient and is negative except for what is stated in the HPI. Nursing and ancillary documentation was reviewed. [facility] Past Medical History Medical History Acid reflux Acquired hallux valgus of left foot Anxiety Encounter for postoperative care Generalized anxiety disorder Hallux valgus (acquired), right foot Seasonal allergies Surgical History Surgical History History of abdominoplasty History of resection of pancreas History of tonsillectomy Social History Social History Smoking packs per day: 0.5 Smoking cigarettes per day: 10.0 Years smoked: 10 Smoking pack-years: 5.00 Smoking status: Former smoker Tobacco type: cigarettes Second hand tobacco smoke exposure: Yes Smoking end date: 07/26/90 Alcohol intake: never Substance use: current Substance use type: marijuana Lack of Transportation: No Lack of Food: Never True Current Housing: I Have Housing Concerned About Future Housing: No Difficulty Paying Gas/Electric Bills: No Difficulty Paying for Meds: No Currently Unemployed: No Education: High School Diploma/GED Difficulty w/ Childcare or Family Care: No Living arrangements: alone Spiritual care concerns: No Exam Narrative: GENERAL: Well-appearing, well-nourished, and in no acute distress. HEAD: Normocephalic, atraumatic. EYES: PERRLA and EOMI. ENT: Nares clear, no rhinorrhea or epistaxis. Mucous membranes moist. NECK: Supple. CHEST: Clear to auscultation. No respiratory distress. HEART: Regular rate and rhythm. No murmur heard. Normal peripheral pulses. ABDOMEN: Soft, nontender, nondistended, normal active bowel sounds. EXTREMITIES: Normal range of motion. No edema. SKIN: Warm, dry, no rash. NEURO: No focal deficits. Alert and oriented x3. PSYCH: Normal mood and affect. Course Vital Signs Vital signs: Vital Signs Temperature 36.3 C L 11/01/23 20:11 Pulse Rate 84 11/01/23 20:11 Respiratory Rate 15 11/01/23 20:11 Blood Pressure 154/96 H 11/01/23 20:11 Pulse Oximetry 98 11/01/23 20:11 Oxygen Delivery Room Air 11/01/23 20:11 Temperature 36.3 C L 11/01/23 20:11 Pulse Rate 84 11/01/23 20:11 Respiratory Rate 15 11/01/23 20:11 Blood Pressure 154/96 H 11/01/23 20:11 Pulse Oximetry 98 11/01/23 20:11 Oxygen Delivery Room Air
== END 2023-11-01 22:55 | disposition home or self-care (01) ==
PROVIDERS: Emergency Provider Emergency Medicine; PCP Internal Medicine
DX: H43.391 Other vitreous opacities, right eye (principal); K21.9 Gastro-esophageal reflux disease without esophagitis; F41.9 Anxiety disorder, unspecified; Z87.891 Personal history of nicotine dependence; Z79.82 Long term (current) use of aspirin
CPT/HCPCS: 99282

== ENCOUNTER 2024-02-23 13:41 | Outpatient (CLI) | payer OTHER, SELFPAY ==
--- NOTE | ~2024-02-23 | US_ITS ---
US pelvic complete w TV Ordering provider: Lamberto Mcdonald MD History: . R10.2 - Pelvic and perineal pain . Comparison: None. Technique: Transabdominal and endovaginal ultrasound of the pelvis (Doppler ultrasound interrogation techniques used as needed for this exam.) FINDINGS: CERVIX: Normal. UTERUS: Measures 6.5x 1.8x 3.9 cm in length which is within normal limits and is anteverted. No myom etrial masses. Prominent vessels on the left side of the uterus/adnexa. ENDOMETRIUM: Normal in thickness measuring 16 mm. (Note: the premenopausal endometrium may measure up to 16 mm when in the secretory phase.) No endometrial masses, cysts or fluid. CUL DE SAC: No free fluid. RIGHT OVARY: Normal in size measuring 1.9x 1.8x 1.1 cm. Normal echotexture. Doppler vascular flow pre sent. LEFT OVARY: Not visualized. ADNEXA: Normal. No mass. IMPRESSION: Prominent vessels in the left adnexa which may indicate pelvic congestion syndrome. Clinical correlat ion advised.. Otherwise, normal pelvic ultrasound. Reviewed, dictated and finalized at location A. IMPRESSION: Prominent vessels in the left adnexa which may indicate pelvic congestion syndr ome. Clinical correlation advised.. Otherwise, normal pelvic ultrasound.
== END 2024-02-23 13:42 | disposition home or self-care (01) ==
LOC: ANHIMG 13:44
PROVIDERS: PCP Internal Medicine; Visit Provider Student in an Organized Health Care Education/Training Program
DX: R10.2 Pelvic and perineal pain (principal)
CPT/HCPCS: 76830; 76856

== ENCOUNTER 2024-05-04 00:32 | Day surgery (SDC) | payer OTHER, SELFPAY ==
[2024-04-27 08:28] VITALS: BMI 23.1
--- NOTE | 2024-04-27 08:29 | PC.NURSE ---
Report to the Outpatient Waiting Room, entrance under the green pavilion located off [facility], at time _1000_ on date _[id number]_. Planned Procedure Time: _1200_.? Time changes happen often and if your time is changed the preop area will call you the afternoon before. - You and your visitor will be asked to self-screen and do not enter if you have any COVID symptoms. Please call surgeon if you need to reschedule. - A mask is optional within the hospital at this time. Patients may have clear liquids (water, carbonated beverages, clear teas, apple juice) until 3 hours prior to surgery with a maximum of 20 ounces. - No food from midnight until time of surgery and no smoking Take only the following medications with a SIP of water on the morning of surgery: __Clonazepam DO NOT STOP ANY OF YOUR OTHER PRESCRIPTION MEDICATIONS PRIOR TO SURGERY EXCEPT THE FOLLOWING Medications to discontinue per physician __Vitamins Date to take last cgdj___[phone] Mcdonald's office to inquire about aspirin. Please no make-up, nail angolan, hairspray, perfume, deodorant, or body powder the day of surgery.? No jewelry (including any body piercings) or valuables the day of surgery, leave them at home.? Please take a shower or bath the night before, or the morning of, surgery with an antibacterial soap.? Wear comfortable, loose fitting clothing.? - Jewelry must be removed prior to entering the operating room.? Rings and piercings that are not removed may be cut off. - The hospital will not accept responsibility for valuables.? - Please leave all valuables, including medications, at home the day of surgery. If you are going home after surgery, a licensed cdl team truck driver must drive you home.? - NO public transportation without another adult if you receive anesthesia. - We recommend that an adult stay with you for 24 hours following discharge. - We also recommend that you do not drive, make important decision, drink alcoholic beverages, or take any drugs that were not prescribed by your health care provider for at least 24 hours after your discharge time. Follow any additional instructions given to you from your surgeon. Telephone instructions given to __Mary__and asked if any additional questions and then verbalized understanding. Patient advised to call surgeon office or pre surgery nurse liaison [phone] if any additional questions.
--- NOTE | 2024-05-04 07:34 | PM.IMHP ---
H&P: HPI History of Present Illness Date/Time: 05/04/24 07:34 Chief Complaint: thickened endometrium on ultrasound Narrative: 59-year-old female who presents for hysteroscopy D&C. Patient has been dealing with chronic pelvic pain for some time. She attributes her symptoms to pelvic congestion syndrome. Patient's pelvic ultrasound showed a thickened endometrial lining. An office endometrial biopsy showed scant benign tissue but insufficient sample. Hysteroscopy D&C has been recommended. Review of Systems Cardiovascular: Cardiovascular: Denies chest pain, Denies leg edema, Denies palpitations, Denies dyspnea and Denies dyspnea on exertion Respiratory: Respiratory: Denies cough, Denies dyspnea and Denies dyspnea on exertion Gastrointestinal: Gastrointestinal: Denies abdominal pain, Denies constipation, Denies diarrhea, Denies nausea and Denies vomiting Genitourinary: Genitourinary: Denies hematuria, Denies urinary frequency, Denies dysuria, Denies pelvic pain, Denies urinary incontinence and Denies vaginal discharge Neurologic: Reports system reviewed and no additional complaints, except as documented Psychiatric: Psychiatric: Reports no additional psychiatric complaints Endocrine: Endocrine: Denies palpitations PMFSH Past Medical History Medical History Acid reflux Acquired hallux valgus of left foot Anxiety Encounter for postoperative care Generalized anxiety disorder Hallux valgus (acquired), right foot Seasonal allergies Surgical History Surgical History History of abdominoplasty History of resection of pancreas History of tonsillectomy Family History Family History Mother Ovarian cancer Uterine cancer Social History Social History (Updated 04/26/24 @ 09:07 by Julito Live MA) Smoking packs per day: 0.5 Smoking cigarettes per day: 10.0 Years smoked: 6 Smoking pack-years: 3.00 Smoking status: Former smoker Tobacco type: cigarettes Second hand tobacco smoke exposure: Yes Smoking end date: 04/27/90 Alcohol intake: never Substance use: current Substance use type: marijuana Other substance usage details: Medical marijuana daily Do You Feel Safe in your Home?: Yes Lack of Transportation: No Lack of Food: Never True Current Housing: I Have Housing Concerned About Future Housing: No Difficulty Paying Gas/Electric Bills: No Difficulty Paying for Meds: No Currently Unemployed: No Education: Trade/Vocational Certificate Difficulty w/ Childcare or Family Care: No Living arrangements: with family Spiritual care concerns: No Meds Home Medications and Allergies Home Medications Medication Instructions Recorded Confirmed Type nortriptyline 25 mg capsule 25 mg PO QHS 03/24/21 04/27/24 History aspirin 81 mg tablet,delayed 81 mg PO DAILY 04/23/21 04/27/24 History release (Adult Low Dose Aspirin) albuterol sulfate 90 mcg/actuation 2 inh inhalation Q4H PRN shortness 12/28/22 04/27/24 Rx aerosol inhaler of breath or wheezing #8.5 grams B-complex with vitamin C 1 tablet PO DAILY 05/17/23 04/27/24 History pantoprazole 20 mg tablet,delayed 20 mg PO QAM 05/17/23 04/27/24 History release (Protonix) cholecalciferol (vitamin D3) 1,250 1,250 mcg PO WEEKLY #12 caps 08/09/23 04/27/24 Rx mcg (50,000 unit) capsule oxybutynin chloride 10 mg 10 mg PO DAILY 01/20/24 04/27/24 History tablet,extended release 24 hr triamcinolone acetonide 0.1 % 1 applic topical BID #30 grams 02/08/24 04/27/24 Rx topical cream pravastatin 10 mg tablet 10 mg PO DAILY #30 tabs 03/06/24 04/27/24 Rx clonazepam 0.5 mg tablet 0.5 mg PO DAILY PRN anxiety #30 04/11/24 04/27/24 Rx tabs sumatriptan succinate 25 mg tablet See Rx Instructions PO .COMPLEX #9 04/21/24 04/27/24 Rx tabs Allergies All
[2024-05-04] MEDS: LACTATED RINGERS 1,000 ML 30 ML IV CONT (10:25)
[2024-05-04] MEDS: ACETAMINOPHEN 500 MG TABLET 1000 MG PO (10:25)
[2024-05-04 10:36] VITALS: BP 134/74; PULSE 72; RESP 16; TEMP 36.4; O2SAT 100
--- NOTE | 2024-05-04 10:42 | WPDANESEPPF ---
Anes - Initial Pre Proc Eval Procedure: Operation Date: 05/04/24 12:00 Proposed Procedures p Hysteroscopy Dilation and Curettage - Lamberto Mcdonald MD Date/Time: 05/04/24 10:42 Surgeon: Lamberto Mcdonald MD Pre Op Diagnosis: Endometrial Hyperplasia Patient Data Age: 59 Gender: F Height: 1.68 m Weight: 63.9 kg Last Vital Signs Temp 36.4 C L 05/04/24 10:36 Pulse 72 05/04/24 10:36 Resp 16 05/04/24 10:36 BP 134/74 05/04/24 10:36 Pulse Ox 100 05/04/24 10:36 O2 Del Method Room Air 05/04/24 10:36 Allergies Allergy/AdvReac Type Severity Reaction Status Date / Time latex Allergy Intermediate Swelling Verified 05/04/24 10:20 adhesive tape Allergy Blister Verified 05/04/24 10:20 Home Medications Medication Instructions Recorded Confirmed Type nortriptyline 25 mg capsule 25 mg PO QHS 03/24/21 05/04/24 History aspirin 81 mg tablet,delayed 81 mg PO DAILY 04/23/21 05/04/24 History release (Adult Low Dose Aspirin) albuterol sulfate 90 mcg/actuation 2 inh inhalation Q4H PRN shortness 12/28/22 05/04/24 Rx aerosol inhaler of breath or wheezing #8.5 grams B-complex with vitamin C 1 tablet PO DAILY 05/17/23 05/04/24 History pantoprazole 20 mg tablet,delayed 20 mg PO QAM 05/17/23 05/04/24 History release (Protonix) cholecalciferol (vitamin D3) 1,250 1,250 mcg PO WEEKLY #12 caps 08/09/23 05/04/24 Rx mcg (50,000 unit) capsule oxybutynin chloride 10 mg 10 mg PO DAILY 01/20/24 05/04/24 History tablet,extended release 24 hr triamcinolone acetonide 0.1 % 1 applic topical BID #30 grams 02/08/24 05/04/24 Rx topical cream pravastatin 10 mg tablet 10 mg PO DAILY #30 tabs 03/06/24 05/04/24 Rx clonazepam 0.5 mg tablet 0.5 mg PO DAILY PRN anxiety #30 04/11/24 05/04/24 Rx tabs sumatriptan succinate 25 mg tablet See Rx Instructions PO .COMPLEX #9 04/21/24 05/04/24 Rx tabs Patient hx anesthesia problems: none Family hx anesthesia problems: none Results Review: All pre-operative results and documents have been reviewed as part of the pre-operative evaluation. [facility] Past Medical History Medical History Acid reflux Acquired hallux valgus of left foot Anxiety Encounter for postoperative care Generalized anxiety disorder Hallux valgus (acquired), right foot Seasonal allergies Surgical History Surgical History (Updated 05/04/24 @ 10:43 by Ede Mae MD) History of abdominoplasty History of resection of pancreas 2014 [facility], pseudo tumor - benign History of tonsillectomy Family History Family History Mother Ovarian cancer Uterine cancer Social History Social History Smoking packs per day: 0.5 Smoking cigarettes per day: 10.0 Years smoked: 6 Smoking pack-years: 3.00 Smoking status: Former smoker Tobacco type: cigarettes Second hand tobacco smoke exposure: Yes Smoking end date: 04/27/90 Alcohol intake: never Substance use: current Substance use type: marijuana Other substance usage details: Medical marijuana daily Do You Feel Safe in your Home?: Yes Lack of Transportation: No Lack of Food: Never True Current Housing: I Have Housing Concerned About Future Housing: No Difficulty Paying Gas/Electric Bills: No Difficulty Paying for Meds: No Currently Unemployed: No Education: Trade/Vocational Certificate Difficulty w/ Childcare or Family Care: No Living arrangements: with family Spiritual care concerns: No Anes - Eval Final PreProcedure Day of Procedure 05/04/24 10:42 Patient weight: normal Heart: regular rate and rhythm Lungs: clear to auscultation Airway: Mallampati scale class 1 Neurological: alert and oriented Last oral intake: >/= 8 hours ASA classification: III Emergent: no Anesthetic plan: proceed Anesthesia type and monitoring: general GI
[2024-05-04 10:50] LABS: Glucose Point of Care 94 mg/dl (65-105)
--- NOTE | 2024-05-04 11:27 | WPDHPUPDATE1 ---
History and Physical Update Update Date/Time: 05/04/24 11:27 History and Physical has been reviewed, including an updated exam of the patient. There are NO changes in the patient's condition. Risks, benefits, and alternatives have been discussed and questions answered. Patient agrees to proceed with procedure.
--- NOTE | 2024-05-04 12:12 | W.PM.PROC2 ---
Procedure Note - Detailed Date of Procedure 05/04/24 Pre-op Diagnosis Endometrial Hyperplasia Post-op Diagnosis Same Procedure Performed hysteroscopy dilation & curettage Surgeon Lamberto Mcdonald MD Anesthesia General Indications abnormal uterine bleeding Findings normal appearing intrauterine cavity. Normal tubal ostia bilaterally Description of Procedure Velia Corcoran presents for the above procedure. She was counseled as to the indications, risks, benefits, and alternatives to surgery, with the risks including bleeding, infection, damage to surrounding organs, VTE, and complications of anesthesia. Her verbal and written consent was obtained. PROCEDURE: The patient was taken to the OR and general anesthesia induced. She was prepped and draped in Keshawn stirrups with support of the back and bilateral lower extremities. I/O catheterization performed of the bladder. The above findings were noted. A single tooth tenaculum was placed on the anterior lip of the cervix. The uterus sounded to 6 cm. The cervix was dilated with sequential Karina dilators. Hysteroscopy, using a normal saline medium, was performed and showed the above findings. Sharp uterine curettage was then performed and tissue placed on Telfa. The tenaculum was removed and hemostasis was observed. The patient tolerated the procedure well. Sponge, lap, and needle counts were correct. The patient had SCD's on throughout the case for VTE prophylaxis. The patient was taken to the recovery room in stable condition. Estimated Blood Loss 5 Drains No Packing No Pathology Yes (endometrial curettings ) Complications No immediate complications Condition Stable Disposition PACU [facility] Billing Surgery - Charge Forward: Surgery Billing
[2024-05-04 12:14] VITALS: BP 125/82; PULSE 72; RESP 14; O2SAT 100
[2024-05-04 12:40] VITALS: BP 152/78; PULSE 64; RESP 14; O2SAT 100
[2024-05-04 13:10] VITALS: BP 147/86; PULSE 57; RESP 14
== END 2024-05-04 13:35 | disposition home or self-care (01) ==
PROVIDERS: PCP Internal Medicine; Visit Provider Student in an Organized Health Care Education/Training Program
PROC: 0U5B8ZZ Destruction of Endometrium, Via Natural or Artificial Opening Endoscopic (ICD-10-PCS; CPT 58563; principal; 2024-05-04 12:00)
DX: R93.89 Abnormal findings on diagnostic imaging of other specified body structures (principal); G89.29 Other chronic pain; R10.2 Pelvic and perineal pain; K21.9 Gastro-esophageal reflux disease without esophagitis; M20.12 Hallux valgus (acquired), left foot; M20.11 Hallux valgus (acquired), right foot; F41.9 Anxiety disorder, unspecified; F12.90 Cannabis use, unspecified, uncomplicated; Z79.82 Long term (current) use of aspirin; Z79.51 Long term (current) use of inhaled steroids; Z98.890 Other specified postprocedural states; Z87.891 Personal history of nicotine dependence; Z80.41 Family history of malignant neoplasm of ovary; Z80.49 Family history of malignant neoplasm of other genital organs
CPT/HCPCS: 58558; 82948; 88305; A9270; J1100; J1885; J2003; J2250; J2405; J2704; J3010; J7120

== ENCOUNTER 2024-05-13 15:46 | Emergency (ER) | payer OTHER, SELFPAY ==
[2024-05-13 15:49] VITALS: BP 145/86; PULSE 89; RESP 18; TEMP 36.8; O2SAT 98
[2024-05-13] MEDS: NAPROXEN 500 MG TABLET PO (17:44)
--- NOTE | 2024-05-13 17:46 | ED.WOUNDLAC ---
HPI - Wound/Laceration General Chief Complaint: Wound/Laceration Stated Complaint: wound/ laceration Time Seen by Provider: 05/13/24 16:23 History of Present Illness HPI narrative: 5-year-old female presenting with laceration. States that she cut her left hand earlier today. She immediately applied a butterfly but it continues to bleed. Her is concerned that the wound is fairly gaping. She is unsure when her last Tdap was. No further injuries or complaints. Related Data Home Medications Medication Instructions Recorded Confirmed nortriptyline 25 mg capsule 25 mg PO QHS 03/24/21 05/04/24 aspirin 81 mg tablet,delayed 81 mg PO DAILY 04/23/21 05/04/24 release (Adult Low Dose Aspirin) B-complex with vitamin C 1 tablet PO DAILY 05/17/23 05/04/24 pantoprazole 20 mg tablet,delayed 20 mg PO QAM 05/17/23 05/04/24 release (Protonix) oxybutynin chloride 10 mg 10 mg PO DAILY 01/20/24 05/04/24 tablet,extended release 24 hr Allergies Allergy/AdvReac Type Severity Reaction Status Date / Time latex Allergy Intermediate Swelling Verified 05/04/24 10:20 adhesive tape Allergy Blister Verified 05/04/24 10:20 Review of Systems Review of Systems: All systems reviewed & are unremarkable except as noted in HPI and below PMFSH Past Medical History Medical History Acid reflux Acquired hallux valgus of left foot Anxiety Encounter for postoperative care Generalized anxiety disorder Hallux valgus (acquired), right foot Seasonal allergies Surgical History Surgical History History of abdominoplasty History of resection of pancreas 2014 [facility], pseudo tumor - benign History of tonsillectomy Family History Family History Mother Ovarian cancer Uterine cancer Social History Social History Smoking packs per day: 0.5 Smoking cigarettes per day: 10.0 Years smoked: 6 Smoking pack-years: 3.00 Smoking status: Former smoker Tobacco type: cigarettes Second hand tobacco smoke exposure: Yes Smoking end date: 04/27/90 Alcohol intake: never Substance use: current Substance use type: marijuana Other substance usage details: Medical marijuana daily Do You Feel Safe in your Home?: Yes Lack of Transportation: No Lack of Food: Never True Current Housing: I Have Housing Concerned About Future Housing: No Difficulty Paying Gas/Electric Bills: No Difficulty Paying for Meds: No Currently Unemployed: No Education: Trade/Vocational Certificate Difficulty w/ Childcare or Family Care: No Living arrangements: with family Spiritual care concerns: No Exam Narrative: GENERAL: Well-appearing, well-nourished, and in no acute distress. HEAD: Normocephalic, atraumatic. EYES: PERRLA and EOMI. ENT: Grossly unremarkable NECK: Supple. CHEST: No respiratory distress. HEART: Regular rate and rhythm EXTREMITIES: Normal range of motion. SKIN: Warm, dry, 1cm laceration between 4th and 5th metacarpals on left hand NEURO: Alert and oriented x3. PSYCH: Normal mood and affect. Course Vital Signs Vital signs: Vital Signs Temperature 98.3 F 05/13/24 15:49 Pulse Rate 89 05/13/24 15:49 Respiratory Rate 18 05/13/24 15:49 Blood Pressure 145/86 H 05/13/24 15:49 Pulse Oximetry 98 05/13/24 15:49 Oxygen Delivery Room Air 05/13/24 15:49 Temperature 98.3 F 05/13/24 15:49 Pulse Rate 89 05/13/24 15:49 Respiratory Rate 18 05/13/24 15:49 Blood Pressure 145/86 H 05/13/24 15:49 Pulse Oximetry 98 05/13/24 15:49 Oxygen Delivery Room Air 05/13/24 15:49 Procedures Laceration Laceration 1: Date: 05/13/24 Time: 18:50 Site: hand Side (If applicable): left Size (cm): 1 Description:
[2024-05-13] MEDS: TETANUS,DIPHTHERIA,AC PERTUSSIS ADULT (0.5 ML) BOOSTRIX IM (17:59)
[2024-05-13] MEDS: LIDO 1%/EPINEPHRINE 1:100,000 20 ML VIAL 10 ML INFILTRATE (18:19)
== END 2024-05-13 19:07 | disposition home or self-care (01) ==
PROVIDERS: Emergency Provider Emergency Medicine; PCP Internal Medicine
DX: S61.412A Laceration without foreign body of left hand, initial encounter (principal); W45.8XXA Other foreign body or object entering through skin, initial encounter; F41.9 Anxiety disorder, unspecified; Z79.82 Long term (current) use of aspirin; Z87.891 Personal history of nicotine dependence; Z23 Encounter for immunization
CPT/HCPCS: 12001; 90471; 90715; 99283; A9270; J2004

== ENCOUNTER 2024-09-29 19:38 | Outpatient (CLI) | payer OTHER, SELFPAY ==
--- OUTSIDE RECORDS SUMMARY | 2024-09-26 07:42 | XMS_ITS | Referral Summary ---
Author Organization [facility] Address [address] [place] [address] Care Team Providers Care Command Center Analyst Name Role Phone Tyrell Castillo DO Primary Care Provider [phone] Source Comments [facility],non-owned Affiliates and Associated Physician Practices is amultiple site organization consisting of ambulatory clinics and hospital sitesin [place], [place], [place] and [place]. This disclosure is being madepursuant to the Care Everywhere program and may not contain all information available regarding this patient. Last updated 18.[facility] Encounters Date Type Department Care Team Description 09/25/2024 9:00 AM SHIP PILOT DISPATCHER Hospital Encounter [facility] Vascular Services [address] [place] [address] Ruben Reyes MD 09/19/2024 Travel 09/19/2024 11:00 AM SHIP PILOT DISPATCHER Office Visit [facility] - Urology [address] [place] [phone] Gui Lora PA Urinary urgency (Primary Dx) 09/15/2024 Travel 09/15/2024 9:30 AM SHIP PILOT DISPATCHER Office Visit [facility] [address] [place] [phone] Ruben Reyes MD Varicose veins of bilateral lower extremities with other complications (Primary Dx); Pelvic congestion syndrome 08/17/2024 Travel 08/04/2024 Travel from Last 3 Months Allergies Active Allergy Reactions Criticality Noted Date Comments Latex Swelling High 05/06/2009 Medications * Be aware that medications may not be up to date on this document. Alwaysverify current medications with the patient. Medication Sig Dispensed Refills Start Date End Date Status medical marijuana Active SUMAtriptan Succinate (IMITREX PO) Take by mouth as needed Active aspirin EC (ECOTRIN) 81 MG tablet Take 1 (one) tablet by mouth once daily Active B Complex Vitamins (VITAMIN B COMPLEX) tablet Take 1 (one) tablet by mouth once daily Active albuterol HFA (Proventil; Ventolin; Proair) 108 (90 Base) MCG/ACT inhaler 02/17/2023 Active clonazePAM (KlonoPIN) 0.5 MG tablet 04/09/2023 Active nortriptyline (Pamelor) 25 MG capsuleIndication s:Chronic Pain,Depression,P anic Disorder,Function al abdominal pain Take 1 (one) capsule by mouth at bedtime Reasons: Chronic Pain, Depression, Panic Disorder, Functional abdominal pain 90 capsule 3 11/22/2023 Active pravastatin (Pravachol) 10 MG tablet 03/06/2024 Active pantoprazole EC (Protonix) 40 MG tabletIndications :Gastro-esophagea l reflux disease without esophagitis TAKE 1 TABLET BY MOUTH EVERY DAY 90 tablet 3 05/04/2024 Active triamcinolone acetonide (Kenalog) 0.1 % cream 02/08/2024 Active support hose waist high moderate compression (Jobst) support hoseIndications:V aricose veins of bilateral lower extremities with other complications,Pel citlaly congestion syndrome Apply 1 (one) Each to affected area as directed 1 Each 09/15/2024 Active oxyBUTYnin CR 24hr (Ditropan-XL) 10 MG tabletIndications :Overactive Bladder Take 1 (one) tablet by mouth once daily Reasons: Overactive Bladder 90 tablet 4 09/19/2024 Active vitamin D, cholecalciferol, 50 MCG (1999) tablet Take 1 (one) tablet by mouth once daily 5 Discontinue d(List Clean-Up) oxyBUTYnin CR 24hr (Ditropan-XL) 10 MG tabletIndications :Overactive Bladder Take 1 (one) tablet by mouth once daily Reasons: Overactive Bladder 90 tablet 3 12/14/2023 5 Discontinue d(Reorder) Active Problems Problem Noted Date Diagnosed Date Varicose veins of bilateral lower extremities with other complications 09/15/2024 Gastro-esophageal reflux disease without esophag itis 06/11/2015 Dysphagia 04/17/2015 Right upper quadrant pain 04/17/2015 Cholesterolosis of gallbladder 06/29/2014 Other specified diseases of pancreas 06/20/2014 Abnormal findings on diagnos tic imaging of other specified body structures 06/20/2014 Obstruction of bile duct 06/20/2014 Immunizations Name Administration Dates Next Due Covid Pfizer primary monoval ent 12+ yr 0.3mL Purple cap 11/26/2020,10/26/2020 Social History Tobacco Use Types Packs/Day Years Used Date Smoking Tobacco: Former Cigarettes Q uit: 08/09/1989 Smokeless Tobacco: Never Tobacco Cessation:Counseling Given: Not Answered Alcohol Use Standard Drinks/Week Comments Not Currently 0 (1 standard drink = 0.6 oz pur e alcohol) Sex and Gender Information Value Date Recorded Sex Assigned at Not on file Gender Identity Not on file Sexual Orientation Not on file Last Filed Vital Signs Vital Sign Reading Time Taken Comments Blood Pressure 144/86 09/19/2024 11:07 AM SHIP PILOT DISPATCHER Pulse 78 09/19/2024 11:07 AM SHIP PILOT DISPATCHER Temperature 36.1 C (97 F) 09/19/2024 11:07 AM SHIP PILOT DISPATCHER Respiratory Rate 14 09/15/2024 9:24 AM SHIP PILOT DISPATCHER Oxygen Saturation 98% 09/19/2024 11:07 AM SHIP PILOT DISPATCHER Inhaled Oxygen Concentration 99% 02/28/2020 1 2:36 PM CDT Weight 64 kg (141 lb) 09/19/2024 11:07 AM SHIP PILOT DISPATCHER Height 165.1 cm (5' 5 ) 09/19/2024 11:07 AM SHIP PILOT DISPATCHER Body Mass Index 23.46 09/19/2024 11:07 AM SHIP PILOT DISPATCHER Functional Status Functional Status Response Date of Assess ment Is person deaf or have serious hearing difficult y? No 02/16/2024 Is person blind or have serious difficulty seein g? No 02/16/2024 Does person have serious dif ficulty walking/climbing stairs? No 02/16/2024 Does person have difficulty dressing/bathing? No 02/16/2024 Does person have difficulty doing errands alone? No 02/16/2024 Cognitive Status Response Date of Assessm ent Does person have difficulty concentrating/remembering/making decisions? No 02/16/2024 Plan of Treatment Upcoming Encounters Date Type Department Care Team (Late st Contact Info) Description 12/04/2024 12:30 PM CDT Office Visit [facility] - GI [address] [place] [address], [place] [phone] 12/20/2024 10:00 AM CDT Office Visit [facility] - Dermatology [address] [place] [address], [place] [phone] Shant Green MD [address] [place] [address] [address] [place] [phone] Goals Goal Patient Goal Type Associated Problems Recent Progress Patient-Stated? Author Medication Management General On track( 9:31 AM SHIP PILOT DISPATCHER) No Samia Rae, RN Note: Expected end date: Ongoing Interventions: Take all medications as prescribed Let your doctor know right away about any changes in your medications Make sure to request a refill of your medication at least one week prior to your last dose Safety General On track( 9:31 AM SHIP PILOT DISPATCHER) No Fara Cisneros, RN Note: Expected end date: ongoing Interventions: Wear glasses/hearing aid Keep personal items within easy reach Use some light at night in your room Procedures Procedure Name Priority Date/Time Associated Diagnosis Comments WI MSR PVR U&/BLADD CAPCTY US NON Routine 09/19/2024 11:18 AM SHIP PILOT DISPATCHER Urinary urgency URINALYSIS AUTO - POINT OF CARE (AMB) [facility] Routine 09/19/2024 11:17 AM SHIP PILOT DISPATCHER Urinary urgency ENDOSCOPY, COLON, SCREENING Routine 02/16/2024 1:26 PM CDT HEPATITIS C AB SCREEN RFLX NAAT QUANT STAT 02/23/2020 8:03 PM CDT HIV-1 HIV-2 ANTIGEN/ANTIBODY STAT 02/23/2020 8:03 PM CDT from Last 3 Months or Most Recently Relevant to Health Maintenance Results * WI MSR PVR U&/BLADD CAPCTY US NON (09/19/2024 11:18 AM SHIP PILOT DISPATCHER) Narrative Noe Loza - 09/19/2024 11:18 AM SHIP PILOT DISPATCHER Noe Loza 09/19/2024 2:55 PM PVR 0 ML Gui Harvey PROCEDURE/MINOR SURG ICAL ORDERABLES * URINALYSIS AUTO - POINT OF CARE (AMB) [facility] (09/19/2024 11:17 AM SHIP PILOT DISPATCHER) Glucose UA - [facility] [address] Bilirubin [facility]A POCT - [facility] [address] Ketones UA POCT - [facility] [address] Specific [place] UA 1.[address] [facility] [address] Blood Urine POCT - [facility] [address] pH UA 6.0 [facility] [address] Protein UA - [facility] [address] Urobilinogen UA 0.2 [facility] [address] Nitrite UA - [facility] [address] WBC UA - [facility] [address] Urine URINE / Unknown 09/19/2024 1 1:17 AM SHIP PILOT DISPATCHER Gui Harvey LAB - POINT OF CARE ORDERABLES [facility] [address] [facility] [place] [address], [facility] [phone] * Endoscopy, Colon, Screening (02/16/2024 1:26 PM CDT) Report Endoscopy POC Endoscopy Department Report _ Patient Name: Velia Corcoran Procedure Date: 02/16/2024 1:26 PM Date of : 1965 Classification: Outpatient Gender: Female Ethnicity: Not or Race: White _ Providers: [facility] Referring MD: Tyrell Castillo (Referring MD) Procedure: Colonoscopy Indications: High risk colon cancer surveillance: Personal history of non-advanced adenoma Medications: See the Anesthesia note for documentation of the administered medications Description of Procedure: Pre-Anesthesia Assessment: - Prior to the procedure, a History and Physical was performed, and patient medications and allergies were reviewed. The patient's tolerance of previous anesthesia was also reviewed. The risks and benefits of the procedure and the sedation options and risks were discussed with the patient. All questions were answered, and informed consent was obtained. Prior Anticoagulants: The patient has taken no anticoagulant or antiplatelet agents. ASA Grade Assessment: II - A patient with mild systemic disease. After reviewing the risks and benefits, the patient was deemed in satisfactory condition to undergo the procedure. After I obtained informed consent, the scope was passed under direct vision. Throughout the procedure, the patient's blood pressure, pulse, and oxygen saturations were monitored continuously. The Colonoscope was introduced through the anus and advanced to the terminal ileum, with identification of the appendiceal orifice and IC valve. The colonoscopy was somewhat difficult due to restricted mobility of the sigmoid colon. The colonoscope was then changed to a pediatric colonoscope and the procedure was then successfully completed. The patient tolerated the procedure well. The quality of the bowel preparation was excellent. The quality of the bowel preparation was evaluated using the BBPS ([place] Bowel Preparation Scale) with scores of: Right Colon = 3, Transverse Colon = 3 and Left Colon = 3 (entire mucosa seen well with no residual staining, small fragments of stool or opaque liquid). The total BBPS score equals 9. The entire colon was examined. The ileocecal valve, appendiceal orifice, and rectum were photographed. Findings: Skin tags were found on perianal exam. A 12 mm polyp was found in the recto-sigmoid colon. The polyp was pedunculated. The polyp was removed with a hot snare. Resection and retrieval were complete. The exam was otherwise without abnormality. Non-bleeding internal hemorrhoids were found. The hemorrhoids were medium-sized and Grade II (internal hemorrhoids that prolapse but reduce spontaneously). Estimated Blood Loss: Estimated blood loss was minimal. Complications: No immediate complications. Impression: - Perianal skin tags found on perianal exam. - One 12 mm polyp at the recto-sigmoid colon, removed with a hot snare. Resected and retrieved. - The examination was otherwise normal. - Non-bleeding internal hemorrhoids. Recommendation: - Patient has a contact number available for emergencies. The signs and symptoms of potential delayed complications were discussed with the patient. Return to normal activities tomorrow. Written discharge instructions were provided to the patient. - Discharge patient to home. - Resume previous diet. - Continue present medications. - Await pathology results. - Repeat colonoscopy in 3 - 5 years for surveillance. - Return to referring physician as previously scheduled. Attending Participation: I was present and participated during the entire procedure, including non-reyez portions. Procedure Code(s): --- Professional --- 68550, Colonoscopy, flexible; with removal of tumor(s), polyp(s), or other lesion(s) by snare technique Diagnosis Code(s): --- Professional --- Z86.010, Personal history of colonic polyps D12.7, Benign neoplasm of rectosigmoid junction K64.1, Second degree hemorrhoids K64.4, Residual hemorrhoidal skin tags CPT copyright 2021 [employer]. All rights reserved. The codes documented in this report are preliminary and upon manager cleaning review may be revised to meet current compliance requirements. Taty Toussaint MD ([place]) 02/16/2024 3:00:29 PM Note Initiated On: 02/16/2024 1:26 PM Number of Addenda: [address] [address] [facility] 02/16/2024 1:26 PM CDT Tayt Toussaint MD GI PROCEDURE ORDBrittany HELMS [facility] * HIV-1 HIV-2 ANTIGEN/ANTIBODY (02/23/2020 8:03 PM CDT) HIV Antigen/Antibod y 1 & 2 Non-reacti ve Non-react starla 02/23/2020 9:07 PM CDT [facility] Comment:Neither HIV-1 p24 An tigen nor HIV-1/HIV-2 Antibodies are detected. Blood BLOOD SPECIMEN / Unknown Venipuncture / Unknown 02/23/2020 8:03 PM CDT 02/23/2020 8:25 PM CDT Jimmy Rice MD LAB - HEMATOLOGY HEATHER DICKEY Performing Organization Address [facility]/ZIP Co de Phone Number [address] [address], [facility] [phone] * HEPATITIS C AB SCREEN RFLX NAAT QUANT (02/23/2020 8:03 PM CDT) Hepatitis C Antibody Non-react starla Non-reac tive 02/23/2020 9:12 PM CDT [facility] Comment:Hepatitis C Antibody screen indicates no serologic evidence of past or current infection with Hepatitis C Virus. Patients with unexplained liver disease who are immunocompromised or suspected of having acute Hepatitis C infection may benefit from Nucleic Acid Test (REY) for Hepatitis C Viral RNA to confirm Hepatitis C status. Blood BLOOD SPECIMEN / Unknown Venipuncture / Unknown 02/23/2020 8:03 PM CDT 02/23/2020 8:25 PM CDT Jimmy Rice MD LAB - CHEMISTRY TIANNA HELMS [address] [address], [facility] [phone] from Last 3 Months or Most Recently Relevant to Health Maintenance Care Teams Command Center Analyst Relationship Specialty Start Date End Date Tyrell Castillo DO [address] [place] [address] PCP - General Internal Medicine 03/15/24
--- OUTSIDE RECORDS SUMMARY | 2024-09-26 07:42 | XMS_ITS | Encounter Summary ---
Author Organization [facility] Address [address] [facility] [place] [address] Care Team Providers Care Ship Manager Name Role Phone Tyrell Castillo DO Primary Care Provider [phone] Tyrell Castillo DO Primary Care Provider [phone] Encounter Details Date Type Department Care Team (Late st Contact Info) Description 12/07/2023 Telephone [facility] - Dermatology [address] [place] [address], [facility] [place] [address] Shant Green MD [address] [place] [address] 3 [place] [address] Social History Tobacco Use Types Packs/Day Years Used Date Smoking Tobacco: Former Cigarettes Q uit: 08/09/1989 Smokeless Tobacco: Never Alcohol Use Standard Drinks/Week Comments Not Currently 0 (1 standard drink = 0.6 oz pur e alcohol) Sex and Gender Information Value Date Recorded Sex Assigned at Not on file Gender Identity Not on file Sexual Orientation Not on file documented as of this encounter Miscellaneous Notes * Telephone Encounter - Amaya Murray - 12/07/2023 2:09 PM CDT pt agreed to new appointment (waitlist). Old: 12/22/2023. New: 12/08/2023 (12/07/2023 2:10p) documented in this encounter Plan of Treatment Upcoming Encounters Date Type Department Care Team (Late st Contact Info) Description 12/04/2024 12:30 PM CDT Office Visit [facility] - GI [address] [facility], [place] [address] 12/20/2024 10:00 AM CDT Office Visit [facility] - Dermatology [address] [place] [address], [place] [address] Shant Green MD [address] [place] [address] [address] [place] [address] documented as of this encounter Goals Goal Patient Goal Type Associated Problems Recent Progress Patient-Stated? Author Medication Management General On track( 025 9:31 AM QUALITY ASSURANCE TEST PROGRAM MANAGER) No Samia Rae, RN Note: Expected end date: Ongoing Interventions: Take all medications as prescribed Let your doctor know right away about any changes in your medications Make sure to request a refill of your medication at least one week prior to your last dose Safety General On track( 025 9:31 AM QUALITY ASSURANCE TEST PROGRAM MANAGER) No Fara Cisneros, RENITA Note: Expected end date: ongoing Interventions: Wear glasses/hearing aid Keep personal items within easy reach Use some light at night in your room documented as of this encounter Visit Diagnoses Not on filedocumented in this encounter Care Teams Ship Manager Relationship Specialty Start Date End Date Tyrell Castillo DO PCP - General Internal Medicine 05/10/23 03/14/24 Tyrell Castillo DO [address] [place] [address] PCP - General Internal Medicine 03/15/24 documented as of this encounter
--- OUTSIDE RECORDS SUMMARY | 2024-09-26 07:42 | XMS_ITS | Encounter Summary ---
Author Organization [facility] Address [address] [place] [address] Care Team Providers Care Graduate Nurse Name Role Phone Tyrell Castillo DO Primary Care Provider [phone] Reason for Visit * Radiology Services (Routine) - Authorized Specialty Diagnoses / Procedures Referred By Contac t Referred To Contact Vascular Lab Diagnoses Pain in left lower leg Procedures VAS Left Venous Reflux Ruben Reyes MD [email or web address] [place] [address] [facility] [address] [place] [address] Referral ID Status Reason Start Date Expiration Date V isits Requested Visits Authorized [id number] Authorized 09/15/2024 09/15/2025 1 1 Encounter Details Date Type Department Care Team (Late st Contact Info) Description 09/25/2024 9:00 AM STAMP CLASSIFIER Hospital Encounter [facility] Vascular Services [address] [place] [address] Ruben Reyes MD [email or web address] [place] [address] Social History Tobacco Use Types Packs/Day Years [...] on file documented as of this encounter Functional Status Functional Status Response Date of [...] person have difficulty concentrating/remembering/making decisions? No 02/16/2024 documented as of this encounter Plan of Treatment Upcoming Encounters Date Type Department Care Team (Late st Contact Info) Description 12/04/2024 12:30 PM CDT Office Visit [facility] GI [address] [place] [address] 12/20/2024 10:00 AM CDT Office Visit [facility] - Dermatology [address] [place] [phone] Shant Green MD [address] [place] [address] [place] [address] Scheduled Orders Name Type Priority Associated Diagnoses Orde r Schedule VAS Left Venous Reflux Vascular Routine Pain in left lower leg 1 Occurrences starting 09/15/2024 until 09/15/2025 documented as of this encounter Goals Goal Patient Goal Type Associated Problems Recent Progress Patient-Stated? Author Medication Management General On track( 025 9:31 AM STAMP CLASSIFIER) No Samia Rae, RN Note: Expected end date: Ongoing Interventions: Take all medications as prescribed Let your doctor know right away about any changes in your medications Make sure to request a refill of your medication at least one week prior to your last dose Safety General On track( 025 9:31 AM STAMP CLASSIFIER) No Fara Cisneros, RENITA Note: Expected end date: ongoing Interventions: Wear glasses/hearing aid Keep personal items within easy reach Use some light at night in your room documented as of this encounter Visit Diagnoses Not on filedocumented in this encounter Care Teams Graduate Nurse Relationship Specialty Start Date End Date Tyrell Castillo DO [address] [place] [address] PCP - General Internal Medicine 03/15/24 documented as of this encounter
--- OUTSIDE RECORDS SUMMARY | 2024-09-26 07:42 | XMS_ITS | Clinical Summary ---
Author Organization [facility] Address [address] [place] [address] Care Team Providers Care Pasting Inspector Name Role Phone Tyrell Castillo DO Primary Care Provider [phone] Source Comments [facility],non-owned Affiliates and Associated Physician Practices is amultiple site organization consisting of ambulatory clinics and hospital sitesin [place], [place], [place] and [place]. This disclosure is being madepursuant to the Care Everywhere program and may not contain all information available regarding this patient. Last updated 18.[facility] Allergies Active Allergy Reactions Criticality Noted Date [...] 09/19/2024 Active vitamin D, cholecalciferol, 50 MCG (1999 UT) tablet Take 1 (one) tablet by mouth once daily Discontinue d(List Clean-Up) oxyBUTYnin CR 24hr (Ditropan-XL) 10 MG tabletIndications :Overactive Bladder Take 1 (one) tablet by mouth once daily Reasons: Overactive Bladder 90 tablet 3 12/14/2023 Discontinue d(Reorder) Active Problems Problem Noted Date Diagnosed Date Varicose veins of bilateral lower extremities with other complications 09/15/2024 Gastro-esophageal reflux disease without esophag itis 06/11/2015 Dysphagia 04/17/2015 Right upper quadrant pain 04/17/2015 Cholesterolosis of gallbladder 06/29/2014 Other specified diseases of pancreas 06/20/2014 Abnormal findings on diagnos tic imaging of other specified body structures 06/20/2014 Obstruction of bile duct 06/20/2014 Encounters Date Type Department Care Team Description 09/25/2024 9:00 AM CAGE OPERATOR Hospital Encounter [facility] Health Vascular Services [address] [place] [address] Ruben Reyes MD 09/19/2024 11:00 AM CAGE OPERATOR Office Visit [facility] - Urology [address] [place] [address] Gui Lora PA Urinary urgency (Primary Dx) 09/19/2024 Travel 09/15/2024 9:30 AM CAGE OPERATOR Office Visit [facility] [address] [place] [address] Ruben Reyes MD Varicose veins of bilateral lower extremities with other complications (Primary Dx); Pelvic congestion syndrome 09/15/2024 Travel 08/17/2024 Travel 08/04/2024 Travel from Last 3 Months Immunizations Name Administration Dates Next Due Covid Pfizer primary monoval ent 12+ yr 0.3mL Purple cap 11/26/2020,10/26/2020 Family History Medical History Relation Name Comments CAD (Coronary Artery Disease) Father High Cholesterol Father Other - Cardiac Father Blood Clots Mother Cancer - Ovarian Mother Cancer - Pancreatic Mother Depression Mother Hypertension Mother Osteoporosis Mother Depression Niece Cancer - Breast Paternal Aunt great aunt Diabetes; unknown type Paternal Grandfather CAD (Coronary Artery Disease) Paternal Grandmother CVA Paternal Grandmother Diabetes; unknown type Paternal Grandmother Heart Failure Paternal Grandmother Thyroid Disease Paternal Grandmother CVA Paternal Great-Grandmother Depression Sister Diabetes; unknown type Sister Thyroid Disease Sister Relation Name Status Comments Father Mother Niece Alive Paternal Aunt great aunt Alive Paternal Grandfather Paternal Grandmother Paternal Great-Grandmother Alive Sister Social History Tobacco Use Types Packs/Day Years [...] Comments Blood Pressure 144/86 09/19/2024 11:07 AM CAGE OPERATOR Pulse 78 09/19/2024 11:07 AM CAGE OPERATOR Temperature 36.1 C (97 F) 09/19/2024 11:07 AM CAGE OPERATOR Respiratory Rate 14 09/15/2024 9:24 AM CAGE OPERATOR Oxygen Saturation 98% 09/19/2024 11:07 AM CAGE OPERATOR Inhaled Oxygen Concentration 99% 02/28/2020 1 2:36 PM CDT Weight 64 kg (141 lb) 09/19/2024 11:07 AM CAGE OPERATOR Height 165.1 cm (5' 5 ) 09/19/2024 11:07 AM CAGE OPERATOR Body Mass Index 23.46 09/19/2024 11:07 AM CAGE OPERATOR Plan of Treatment Upcoming Encounters Date Type Department Care Team (Late st Contact Info) Description 12/04/2024 12:30 PM CDT Office Visit [facility] - GI [address] [place] [address], [place] [address] 12/20/2024 10:00 AM CDT Office Visit [facility] - Dermatology [address] [place] [phone] Shant Green MD [address] [place] [address] [address] [place] [address] Health Maintenance Due Date Last Done Comments COLOGUARD (AGES 45-75) - COLON CA SCREENING 1965 CT COLONOGRAPHY - COLON CA SCREENING 1965 FIT - COLON CA SCREENING 1965 FLEX SIG - COLON CA SCREENING 1965 MAMMOGRAM 1965 PAP SMEAR 1965 DTAP/TDAP/TD VACCINES (1 - Tdap) 02/21/1983 PNEUMOCOCCAL VACCINE 50+ (1 of 1 - PCV) 02/21/2014 ZOSTER VACCINE (1 of 2) 02/21/2014 Respiratory Syncytial Virus (RSV) Vaccine Pt: or over 60 yrs (1 - Risk 60-74 years 1-dose series) 2024 COVID-19 VACCINE ( season) 2024 02/27/2022, 08/22/2021, 11/26/2020, Additional history exists INFLUENZA VACCINE (#1) 2024 DEPRESSION SCREENING 07/26/2024 COLON MONITORING 02/15/2034 02/16/2024, 02/16/2024 COLONOSCOPY - COLON CA SCREENING 02/15/2034 02/16/2024, 02/16/2024 Colorectal Cancer Screening 02/15/2034 HEPATITIS C SCREENING Completed 02/23/2020 HIV SCREENING Completed 02/23/2020 HEPATITIS B VACCINE Aged Out No longe r eligible based on patient's age to complete this topic HIB VACCINE Aged Out No longer eligi ble based on patient's age to complete this topic HPV VACCINE Aged Out No longer eligi ble based on patient's age to complete this topic MENINGOCOCCAL (Group B) VACCINE Aged Out No longer eligible based on patient's age to complete this topic MENINGOCOCCAL VACCINE Aged Out No leigh ann simin eligible based on patient's age to complete this topic Goals Goal Patient Goal Type Associated Problems Recent Progress Patient-Stated? Author Medication Management General On track( 9:31 AM CAGE OPERATOR) No Samia Rae, RN Note: Expected end date: Ongoing Interventions: Take all medications as prescribed Let your doctor know right away about any changes in your medications Make sure to request a refill of your medication at least one week prior to your last dose Safety General On track( 025 9:31 AM CAGE OPERATOR) No Fara Cisneros RN Note: Expected end date: ongoing Interventions: Wear glasses/hearing aid Keep personal items within easy reach Use some light at night in your room Procedures Procedure Name Priority Date/Time Associated Diagnosis Comments RI MSR PVR U&/BLADD CAPCTY US NON Routine 09/19/2024 11:18 AM CAGE OPERATOR Urinary urgency URINALYSIS AUTO - POINT OF CARE (AMB) [facility] Routine 09/19/2024 11:17 AM CAGE OPERATOR Urinary urgency ENDOSCOPY, COLON, SCREENING Routine 02/16/2024 1:26 PM CDT HEPATITIS C AB SCREEN RFLX NAAT QUANT STAT 02/23/2020 8:03 PM CDT HIV-1 HIV-2 ANTIGEN/ANTIBODY STAT 02/23/2020 8:03 PM CDT from Last 3 Months or Most Recently Relevant to Health Maintenance Results * RI MSR PVR U&/BLADD CAPCTY US NON (09/19/2024 11:18 AM CAGE OPERATOR) Narrative Noe Loza - 09/19/2024 11:18 AM CAGE OPERATOR Noe Loza 09/19/2024 2:55 PM PVR 0 ML Gui Harvey PROCEDURE/MINOR SURG ICAL ORDERABLES * URINALYSIS AUTO - POINT OF CARE (AMB) [facility] (09/19/2024 11:17 AM CAGE OPERATOR) Glucose UA - [facility] [address] Bilirubin UA POCT - [facility] [address] Ketones UA POCT - [facility] [address] Specific Proctor UA 1.[address] [facility] [address] Blood Urine POCT - [facility] [address] pH UA 6.0 [facility] [address] Protein UA - [facility] [address] Urobilinogen UA 0.2 [facility] [address] Nitrite UA - [facility] [address] WBC UA - [facility] [address] Urine URINE / Unknown 09/19/2024 1 1:17 AM CAGE OPERATOR Gui Harvey LAB - POINT OF CARE ORDERABLES Performing Organization Address City/State/ZIP Co sc Phone Number [facility] [address] [facility] [address] [facility], [place] [address] [[email or web address]] [phone] * Endoscopy, Colon, Screening (02/16/2024 1:26 PM CDT) Report Endoscopy POC Endoscopy Department Report _ Patient Name: Velia Corcoran Procedure Date: 02/16/2024 1:26 PM Date of : 1965 Classification: Outpatient Gender: Female Ethnicity: Not or Race: White _ Providers: [facility]MD Referring MD: Tyrell Castillo (Referring MD) Procedure: [...] bowel preparation was evaluated using the BBPS ([place] Bowel Preparation Scale) with scores of: Right [...] non-reyez portions. Procedure Code(s): --- Professional --- 40325, Colonoscopy, flexible; with removal of tumor(s), polyp(s), or other lesion(s) by snare technique Diagnosis Code(s): --- Professional --- Z86.010, Personal history of colonic polyps D12.7, Benign neoplasm of rectosigmoid junction K64.1, Second degree hemorrhoids K64.4, Residual hemorrhoidal skin tags CPT copyright 2021 [employer]. All rights reserved. The codes documented in this report are preliminary and upon technical sales engineer review may be revised to meet current compliance requirements. Taty Toussaint MD ([place]) 02/16/2024 3:00:29 PM Note Initiated On: 02/16/2024 1:26 PM Number of Addenda: [address] [address] [facility] 02/16/2024 1:26 PM CDT Taty Toussaint MD GI PROCEDURE TIANNA HELMS [facility] Organization Address City/State/ZIP Co de Phone Number [facility] * HIV-1 HIV-2 ANTIGEN/ANTIBODY (02/23/2020 8:03 PM CDT) HIV Antigen/Antibod y 1 & 2 Non-reacti ve Non-react starla 02/23/2020 9:07 PM CDT [facility] Comment:Neither HIV-1 p24 An tigen nor HIV-1/HIV-2 Antibodies are detected. Blood BLOOD SPECIMEN / Unknown Venipuncture / Unknown 02/23/2020 8:03 PM CDT 02/23/2020 8:25 PM CDT Jimmy Rice MD LAB - HEMATOLOGY [place] [address] [address], [facility] [phone] * HEPATITIS C AB SCREEN RFLX NAAT QUANT (02/23/2020 8:03 PM CDT) Hepatitis C Antibody Non-react starla Non-reac tive 02/23/2020 9:12 PM CDT [facility] Comment:Hepatitis C Antibody screen indicates no serologic [...] Rice MD LAB - CHEMISTRY TIANNA HELMS [address] [address], [facility] [phone] from Last 3 Months or Most Recently Relevant to Health Maintenance Care Teams Pasting Inspector Relationship Specialty Start Date End Date Tyrell Castillo DO [address] [place] [address] PCP - General Internal Medicine 03/15/24
--- OUTSIDE RECORDS SUMMARY | 2024-09-26 07:42 | XMS_ITS | Continuity of Care Document ---
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 zantac daily. Pt denies any GI symptoms. Pt has chornic anxiety and depression and she takes zoloft and doing ok. Pt was pulling weed and notices some itchign right forarm today .PT denies any other complaints gERD Additional infor mation:Pt takes zantac and doing ok. Pt denies any abd pain or GERD. headache Additional infor mation: Pt has chornic headache. Pt has headache almost daily Pt takes notriptyline, imitrex and norco PRN. Pt denies any heada injury. Pt denies any vomiting. Pt has nauea with headaCHE. htn pT TAKES LISINOR PIL FOR htn fibromyalgia Additional infor mation: Pt has crhonic pain. Pt takes neurontin and norco PRN. rash The patient pres ents for rash. Pertinent negatives include bleeding and fatigue. Additional information: Pt notices some poison IV rash on left arm for several weeks. Pt denies any trouble swallowing or breathing, Pt denies any fever. Pt had steroid last dose one week ago which helped but not completely gone. Instructions Date Instruction Additional Infor mation Diet and exercise Related to Gen eralized Anxiety Disorder Compliant with medication instru ction Related to Irritant contact dermatitis due to plants, except food Assessments Type Assessment Date No Information
--- OUTSIDE RECORDS SUMMARY | 2024-09-26 07:42 | XMS_ITS | Patient Health Summary ---
Author Organization [facility] Address [address] [place] [address] Care Team Providers Care Learning Developer Name Role Phone Tyrell Castillo DO Primary Care Provider [phone] Note from [facility],non-owned Affiliates and Associated Physician Practices is amultiple site organization consisting of ambulatory clinics and hospital sitesin [place], [place], [place] and [place]. This disclosure is being madepursuant to the Care Everywhere program and may not contain all information available regarding this patient. Last updated 18.[facility] Allergies * Latex(Swelling) -High Criticality Medications * Be aware that medications may not be up to date on this document. Alwaysverify current medications with the patient. * medical marijuana * SUMAtriptan Succinate (IMITREX PO) Take by mouth as needed * aspirin EC (ECOTRIN) 81 MG tablet Take 1 (one) tablet by mouth once daily * B Complex Vitamins (VITAMIN B COMPLEX) tablet Take 1 (one) tablet by mouth once daily * albuterol HFA (Proventil; Ventolin; Proair) 108 (90 Base) MCG/ACT inhaler (Started 02/17/2023) * clonazePAM (KlonoPIN) 0.5 MG tablet(Started 04/09/2023) * nortriptyline (Pamelor) 25 MG capsule(Started 11/22/2023) Take 1 (one) capsule by mouth at bedtime Reasons: Chronic Pain, Depression, Panic Disorder, Functional abdominal pain 3 refills by 11/21/2024 * pravastatin (Pravachol) 10 MG tablet(Started 03/06/2024) * pantoprazole EC (Protonix) 40 MG tablet(Started 05/04/2024) TAKE 1 TABLET BY MOUTH EVERY DAY 3 refills by 05/04/2025 * triamcinolone acetonide (Kenalog) 0.1 % cream(Started 02/08/2024) * support hose waist high moderate compression (Jobst) support hose(Started 09/15/2024) Apply 1 (one) Each to affected area as directed * oxyBUTYnin CR 24hr (Ditropan-XL) 10 MG tablet(Started 09/19/2024) Take 1 (one) tablet by mouth once daily Reasons: Overactive Bladder 4 refills by 09/19/2025 Ended Medications* vitamin D, cholecalciferol, 50 MCG (1999 UT) tablet (Discontinued) Take 1 (one) tablet by mouth once daily * oxyBUTYnin CR 24hr (Ditropan-XL) 10 MG tablet(Started 12/14/2023)(Discontinued) Take 1 (one) tablet by mouth once daily Reasons: Overactive Bladder 3 refills by 12/13/2024 Active Problems Problem Noted Date Diagnosed Date Varicose veins of bilateral lower extremities with other complications 09/15/2024 Gastro-esophageal reflux disease without esophag itis 06/11/2015 Dysphagia 04/17/2015 Right upper quadrant pain 04/17/2015 Cholesterolosis of gallbladder 06/29/2014 Other specified diseases of pancreas 06/20/2014 Abnormal findings on diagnos tic imaging of other specified body structures 06/20/2014 Obstruction of bile duct 06/20/2014 Immunizations * Covid Pfizer primary monovalent 12+ yr 0.3mL Purple cap(Given 11/26/2020, 10/26/2020) Social History Tobacco Use Types Packs/Day Years [...] Comments Blood Pressure 144/86 09/19/2024 11:07 AM CABLE FERRY OPERATOR Pulse 78 09/19/2024 11:07 AM CABLE FERRY OPERATOR Temperature 36.1 C (97 F) 09/19/2024 11:07 AM CABLE FERRY OPERATOR Respiratory Rate 14 09/15/2024 9:24 AM CABLE FERRY OPERATOR Oxygen Saturation 98% 09/19/2024 11:07 AM CABLE FERRY OPERATOR Inhaled Oxygen Concentration 99% 02/28/2020 1 2:36 PM CDT Weight 64 kg (141 lb) 09/19/2024 11:07 AM CABLE FERRY OPERATOR Height 165.1 cm (5' 5 ) 09/19/2024 11:07 AM CABLE FERRY OPERATOR Body Mass Index 23.46 09/19/2024 11:07 AM CABLE FERRY OPERATOR Procedures * NJ MSR PVR U&/BLADD CAPCTY US NON(Performed 09/19/2024) Performed for Urinary urgency * URINALYSIS AUTO - POINT OF CARE (AMB) [facility](Performed 09/19/2024) Performed for Urinary urgency * PATHOLOGY TISSUE(Performed 02/16/2024) Performed for Tubular adenoma * NJ COLOREC CANC SCRN,COLONOSCPY HI RISK(Performed 02/16/2024) Performed for Tubular adenoma * ENDOSCOPY, COLON, SCREENING(Performed 02/16/2024) * US RETROPERITONEAL COMPLETE(Performed 12/22/2023) Performed for Caliectasis * NJ MSR PVR U&/BLADD CAPCTY US NON(Performed 12/14/2023) Performed for Caliectasis * URINALYSIS AUTO - POINT OF CARE (AMB) [facility](Performed 12/14/2023) Performed for Caliectasis * NJ FULL THICK GRFT NOS,EAR,LID <20SQCM(Performed 12/14/2023) Performed for Basal cell carcinoma (BCC) of left side of nose * NJ CHMSRG MOHS MG TQ H/N/H/F/G 1ST STAG 5 BLOC(Performed 12/14/2023) Performed for Basal cell carcinoma (BCC) of left side of nose * NJ TANGNTL BX SKIN SINGLE LES(Performed 12/08/2023) Performed for Neoplasm of uncertain behavior of skin * DERMATOPATHOLOGY(Performed 12/08/2023) Performed for Neoplasm of uncertain behavior of skin * COMPREHENSIVE METABOLIC PANEL(Performed 11/29/2023) Performed for Biliary stricture (HCC) * MRI ABDOMEN W MRCP WWO CONT W3D(Performed 08/12/2023) Performed for Dysphagia, unspecified type, Pancreatic mass (HCC) * CREATININE - POCT INTERFACED(Performed 08/12/2023) * FL ESOPHAGRAM(Performed 08/12/2023) Performed for Dysphagia, unspecified type * GASTRIC MOTILITY STUDY(Performed 12/30/2021) Performed for Esophageal dysphagia * GASTRIC MOTILITY STUDY(Performed 12/15/2021) Performed for Esophageal dysphagia * PATHOLOGY TISSUE(Performed 07/16/2021) Performed for Colonic thickening * NJ SIGMOIDOSCOPY,DIAGNOSTIC(Performed 07/16/2021) Performed for Colonic thickening * ENDOSCOPY, PROCTOSIGMOID(Performed 07/16/2021) * URINALYSIS W/MICROSCOPIC REFLEX TO CULTURE(Performed 06/23/2021) Performed for Urinary frequency * TSH(Performed 05/03/2021) * LAB MISC TEST(Performed 05/13/2020) * FAT QUALITATIVE FECES RANDOM(Performed 05/03/2020) * O+P PANEL(Performed 05/03/2020) * CULTURE STOOL PANEL(Performed 05/03/2020) * GIARDIA CRYPTOSPORIDIUM ANTIGEN PANEL(Performed 05/03/2020) * EGD(Performed 02/28/2020) * PATHOLOGY TISSUE(Performed 02/28/2020) Performed for Chronic generalized abdominal pain * NJ ED EGD FLEX TRANSORAL DX(Performed 02/28/2020) Performed for Chronic generalized abdominal pain * POTASSIUM WHOLE BLD(Performed 02/28/2020) Performed for Preop examination * CT ABDOMEN PELVIS W CONTRAST(Performed 02/23/2020) Performed for Abdominal pain, generalized * SARS-COV-2 (COVID-19) IN HOUSE(Performed 02/23/2020) * HIV-1 HIV-2 ANTIGEN/ANTIBODY(Performed 02/23/2020) * HEPATITIS C AB SCREEN RFLX NAAT QUANT(Performed 02/23/2020) * ERYTHROCYTE SEDIMENTATION RATE(Performed 02/23/2020) * AMYLASE BLOOD(Performed 02/23/2020) * LIPASE BLOOD(Performed 02/23/2020) * LACTIC ACID BLOOD(Performed 02/23/2020) * C-REACTIVE PROTEIN(Performed 02/23/2020) * COMPREHENSIVE METABOLIC PANEL(Performed 02/23/2020) * CBC W AUTO DIFFERENTIAL(Performed 02/23/2020) * URINALYSIS W/MICROSCOPIC NO CULTURE(Performed 02/20/2020) * LIPASE BLOOD(Performed 02/20/2020) * COMPREHENSIVE METABOLIC PANEL(Performed 02/20/2020) * CBC W AUTO DIFFERENTIAL(Performed 02/20/2020) * US ABDOMEN LIMITED(Performed 08/05/2016) * US ABDOMEN LIMITED(Performed 08/19/2015) * PATHOLOGY TISSUE(Performed 06/11/2015) * HCG BETA BLOOD QUANTITATIVE(Performed 06/11/2015) * COMPREHENSIVE METABOLIC PANEL(Performed 05/30/2015) * CBC W/O DIFFERENTIAL(Performed 05/30/2015) * VITAMIN D 25-HYDROXY D2+D3(Performed 05/30/2015) * VITAMIN B12 FOLATE PANEL(Performed 05/30/2015) * TSH(Performed 05/30/2015) * URINALYSIS W/MICROSCOPIC REFLEX TO CULTURE(Performed 05/30/2015) * LIPID PROFILE W LDL/HDL RATIO(Performed 05/30/2015) * CULTURE URINE REFLEXED(Performed 05/30/2015) * TISSUE TRANSGLUTAMINASE AB IGA(Performed 10/12/2014) * IGA BLOOD(Performed 10/12/2014) * HCG URINE QUALITATIVE - POCT (IP) [facility](Performed 08/09/2014) * MRI ABDOMEN W MRCP WWO CONT W3D(Performed 07/31/2014) * COMPREHENSIVE METABOLIC PANEL(Performed 07/01/2014) * CBC W AUTO DIFFERENTIAL(Performed 07/01/2014) * CBC W AUTO DIFFERENTIAL(Performed 07/01/2014) * RAE BLOOD SCREEN W/REFLEX TITER(Performed 06/30/2014) * RAE W/REFLEX IFA PATTERN(Performed 06/30/2014) * COMPREHENSIVE METABOLIC PANEL(Performed 06/30/2014) * CBC W AUTO DIFFERENTIAL(Performed 06/30/2014) * CBC W AUTO DIFFERENTIAL(Performed 06/30/2014) * XR ABDOMEN KUB PORTABLE(Performed 06/29/2014) * HELICOBACTER PYLORI ANTIBODY IGG(Performed 06/29/2014) * LIPASE BLOOD(Performed 06/29/2014) * COMPREHENSIVE METABOLIC PANEL(Performed 06/29/2014) * CBC W AUTO DIFFERENTIAL(Performed 06/29/2014) * CBC W AUTO DIFFERENTIAL(Performed 06/29/2014) * COMPREHENSIVE METABOLIC PANEL(Performed 06/28/2014) * CBC W AUTO DIFFERENTIAL(Performed 06/28/2014) * CBC W AUTO DIFFERENTIAL(Performed 06/28/2014) * GLUCOSE ACCUCHECK(Performed 06/28/2014) * CYTOLOGY NON-EXPENSE ANALYST PANEL (STL)(Performed 06/28/2014) * CYTOLOGY NON-EXPENSE ANALYST PANEL (STL)(Performed 06/28/2014) * GLUCOSE ACCUCHECK(Performed 06/28/2014) * HCG URINE QUALITATIVE - POCT (IP) [facility](Performed 06/28/2014) * EKG 12-LEAD(Performed 06/28/2014) * IGG SUBCLASS 4(Performed 06/23/2014) * PT-INR [facility](Performed 06/23/2014) * COMPREHENSIVE METABOLIC PANEL(Performed 06/23/2014) * CBC W/O DIFFERENTIAL(Performed 06/23/2014) * VITAMIN A(Performed 06/23/2014) * VITAMIN E(Performed 06/23/2014) * VITAMIN B12(Performed 06/23/2014) Results * NJ MSR PVR U&/BLADD CAPCTY US NON (09/19/2024 11:18 AM CABLE FERRY OPERATOR) Narrative Noe Loza - 09/19/2024 11:18 AM CABLE FERRY OPERATOR Noe Loza 09/19/2024 2:55 PM PVR 0 ML Gui Harvey PROCEDURE/MINOR SURG ICAL ORDERABLES * URINALYSIS AUTO - POINT OF CARE (AMB) [facility] (09/19/2024 11:17 AM CABLE FERRY OPERATOR) Only the most recent of2 resultswithin the time period is included. Glucose UA - [facility] [address] Bilirubin UA POCT - [facility] [address] Ketones UA POCT - [facility] [address] Specific [place] UA 1.[address] [facility] [address] Blood Urine POCT - [facility] [address] pH UA 6.[address] [facility] [address] Protein UA - [facility] [address] Urobilinogen UA 0.[address] [facility] [address] Nitrite UA - [facility] [address] WBC UA - [facility] [address] Urine URINE / Unknown 09/19/2024 1 1:17 AM CABLE FERRY OPERATOR Gui Harvey LAB - POINT OF CARE ORDERABLES [facility] [address] [place] [address], [facility] [phone] * PATHOLOGY TISSUE (02/16/2024 2:25 PM CDT) Only the most recent of4 resultswithin the time period is included. Case Report Surgical Pathology Report Case: [id number] Authorizing Provider: Taty Toussaint MD Collected: 02/16/2024 02:25 PM Ordering Location: [facility] ENDOSCOPY Received: 02/16/2024 03:16 PM Pathologist: Lashonda Sow MD Specimen: Polyp Rectosigmoid, Rectosigmoid colon polyp x1 02/17/2024 11:35 AM [facility] Final Diagnosis Large intestine, rectosigmoid colon polyp x1, biopsy (A): - Tubular adenoma 02/17/2024 11:35 AM [facility] Microscopic Description and Comment Microscopic examination substantiates the final diagnosis. 02/17/2024 11:35 AM [facility] Clinical History The patient is a 58-year-old woman who presents for high risk colon cancer surveillance (personal history of nonadvanced adenoma). Operative procedure/findings: Colonoscopy - 12 mm rectosigmoid colon polyp, resected and retrieved. 02/17/2024 11:35 AM [facility] Gross Description The requisition and specimen(s) are identified with the patient's name, Velia Corcoran. Received in formalin, specimen A , is a reynolds-pink segment of polypoid mucosal covered soft tissue measuring 0.7 x 0.4 x 0.3 cm. The resection margin is inked blue, the specimen is bisected, and entirely submitted in A1. [facility] 02/17/2024 11:35 AM [facility] Pathologist Location at [facility] 02/17/2024 11:35 AM [facility] Disclaimer The performance characteristics of all immunohistochemical and indirect immunofluorescence stains (if any) cited in this report were determined by the Histopathology Laboratory of [facility]. Some of these tests were developed by our own laboratory and have not been cleared or approved by the US Food and Drug Administration. The FDA does not require this test to go through premarket FDA review. These tests are used for clinical purposes. They should not be regarded as investigational or for research. This laboratory is certified under the Clinical Laboratory Improvement Amendments (CLIA) as qualified to perform high complexity clinical laboratory testing. This case has been personally reviewed and interpreted by the attending (teaching) pathologist. 02/17/2024 11:35 AM CDT [facility] Embedded Images 02/17/2024 11:35 AM CDT [facility] Biopsy, NOS POLYP / Unknown 02/16/2024 2 :25 PM CDT 02/16/2024 3:16 PM CDT Taty Toussaint MD LAB - PATHOLOGY/C YTOLOGY ORDERABLES [facility] [address] [id number], [facility] [phone] * Endoscopy, Colon, Screening (02/16/2024 1:26 PM CDT) Report Endoscopy POC Endoscopy Department Report _ Patient Name: Velia Corcoran Procedure Date: 02/16/2024 1:26 PM Date of : 1965 Classification: Outpatient Gender: Female Ethnicity: Not or Race: White _ Providers: Taty Toussaint ([facility])MD Referring MD: Tyrell Castillo (Referring ) Procedure: Colonoscopy Indications: High risk colon cancer [...] bowel preparation was evaluated using the BBPS ([place] Bowel Preparation Scale) with scores of: Right [...] non-reyez portions. Procedure Code(s): --- Professional --- 98756, Colonoscopy, flexible; with removal of tumor(s), polyp(s), or other lesion(s) by snare technique Diagnosis Code(s): --- Professional --- Z86.010, Personal history of colonic polyps D12.7, Benign neoplasm of rectosigmoid junction K64.1, Second degree hemorrhoids K64.4, Residual hemorrhoidal skin tags CPT copyright 2021 [employer] [place] [employer]. All rights reserved. The codes documented in this report are preliminary and upon inspector watch train review may be revised to meet current compliance requirements. Taty Toussaint MD ([place]) 02/16/2024 3:00:29 PM Note Initiated On: 02/16/2024 1:26 PM Number of Addenda: [id number] [place] [address] PROVATION 02/16/2024 1:26 PM CDT Taty Toussaint MD GI PROCEDURE [facility] Organization Address City/State/ZIP Co de Phone Number [facility] PROVATION * US RETROPERITONEAL COMPLETE (12/22/2023 1:41 PM CDT) Anatomical Region Laterality Modality Abdomen Ultrasound 12/22/2023 1:56 PM CDT Impressions 12/22/2023 2:03 PM CDT Impression: 1. Mild diffuse parenchymal thinning in the right kidney, representing mild atrophy. 2. No hydronephrosis or nephrolithiasis. The previously seen right renal calyectasis has resolved. > Interpreting Provider: Haley Pool MD on 12/22/2023 2:03 PM Narrative 12/22/2023 2:03 PM CDT PROCEDURE: US RETROPERITONEAL COMPLETE DATE/TIME OF EXAM: 12/22/2023 1:41 PM CLINICAL INFORMATION: Exam: Renal ultrasound History: N28.89: Caliectasis Comparison: MRI from 08/12/2023 Findings: Right kidney: 10.6 x 3.9 x 3.7 cm, volume: 78.8 cc Left kidney: 10.5 x 5.5 x 4.9 cm, volume: 146.6 cc The renal parenchymal echogenicity is normal. There is mild diffuse right renal parenchymal thinning. The right renal caliectasis, seen on the prior MR from 08/12/2023 has resolved. No hydronephrosis, calculus, or solid renal mass is present. Blood flow is seen within the renal arteries and veins. The bladder is within normal limits. Procedure Note Rowena Pool MD - 12/22/2023 PROCEDURE: US RETROPERITONEAL COMPLETE DATE/TIME OF EXAM: 12/22/2023 1:41 PM CLINICAL INFORMATION: Exam: Renal ultrasound History: N28.89: Caliectasis Comparison: MRI from 08/12/2023 Findings: Right kidney: 10.6 x 3.9 x 3.7 cm, volume: 78.8 cc Left kidney: 10.5 x 5.5 x 4.9 cm, volume: 146.6 cc The renal parenchymal echogenicity is normal. There is mild diffuseright renal parenchymal thinning. The right renal caliectasis, seen on theprior MR from 08/12/2023 has resolved. No hydronephrosis, calculus, or solidrenal mass is present. Blood flow is seen within the renal arteries and veins. The bladder is within normal limits. Impression: 1. Mild diffuse parenchymal thinning in the right kidney, representingmild atrophy. 2. No hydronephrosis or nephrolithiasis. The previously seen right renal calyectasis has resolved. > Interpreting Provider: Haley Pool MD on 12/22/2023 2:03 PM Gui Harvey US ORDERABLES * NJ MSR PVR U&/BLADD CAPCTY US NON (12/14/2023 12:52 PM CDT) Narrative Ronel Rubio MA - 12/14/2023 12:52 PM CDT Ronel Rubio ONELIA 12/17/2023 12:54 PM PVR=38ML Gui Harvey PROCEDURE/MINOR SURG ICAL ORDERABLES * NJ CHMSRG MOHS MG TQ H/N/H/F/G 1ST STAG 5 BLOC, NJ FULL THICK GRFT NOS,EAR,LID <20SQCM (12/14/2023 10:42 AM CDT) Narrative Shant Green MD - 12/14/2023 10:42 AM CDT Sahnt Green MD 12/14/2023 12:40 PM Mohs Micrographic Surgery Operative Note Procedure: Mohs micrographic surgery Date of service: 12/14/2023 Location: left nasal ala Preop diagnosis: Basal cell carcinoma Postop diagnosis: Basal cell carcinoma Mohs AUC score: 8 Number of stages: 1 Preop size: 0.6x0.6 cm Postop size: 0.8x0.7 cm Depth of final defect: adipose Previous dermpath accession #: [id number] Repair type: full-thickness skin graft Mohs accession #: [id number] Surgeon and Pathologist: Sahnt Green MD served as both surgeon and pathologist. No other physician was involved in the cancer removal or pathology interpretation. Assistants: N/A Indications for Mohs Surgery Removal of the patient's tumor is complicated by the following clinical features: Clinical area critical for tissue conservation (Area H: central face, eyelids, eyebrows, nose, lips, chin, ear, periauricular, muslim, genitalia, hands, feet, ankles, nail units and areola). Based on my medical judgement, Mohs surgery is the most appropriate treatment for this cancer compared to other treatments. I discussed alternative treatments to Mohs surgery and specifically discussed the risks and benefits of curettage, excision with permanent sections, and foregoing treatment. The rationale for Mohs was explained to the patient and consent was obtained. The risks, benefits and alternatives to therapy were discussed in detail. Specifically, the risks of infection, scarring, bleeding, prolonged wound healing, incomplete removal, allergy to anesthesia, nerve injury and recurrence were addressed. Prior to the procedure, the treatment site was clearly identified and confirmed by the patient. All components of [place] Protocol/PAUSE Rule completed. STAGE I: The patient was placed on the operating table. The cancer was identified and outlined. The entire surgical field was prepped with hibiclens. The surgical site was anesthetized using Lidocaine 1% with epinephrine 1:100,000 buffered with sodium bicarbonate 8.4% in a 1:10 ratio.The area of clinically apparent tumor was debulked with a 2 mm curette. The layer of tissue was then surgically excised using a #15 blade and was then transferred onto a specimen sheet maintaining the orientation of the specimen. Hemostasis was obtained using monopolar electrodesiccation. The wound site was then covered with a dressing while the tissue samples were processed for examination. The specimen was oriented, mapped and divided. Each section was then inked and processed in the Mohs lab using the Mohs protocol and submitted for frozen section. The histopathologic sections were reviewed by the surgeon in conjunction with the reference map. Total blocks: 1 Total slides: 3 Frozen sections were examined by the surgeon. No additional tumor was identified. 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 Cell morphology: N/A. No tumor seen at the margin. Pathological pattern: N/A. No tumor seen. Depth of invasion: N/A. No tumor seen. Scar tissue: Not Present Perineural invasion: Not Present Inflammation obscuring possible tumor presence: Not Present [facility] Mohs CLIA # [id number] Mohs clinical laboratory medical director: Ade Rowell MD REPAIR: Full thickness skin graft Primary Surgeon: Shant Green MD Rn Review: ASHLEY Vieyra Final Wound Size: 0.8x0.8 cm (graft) and 2.0 cm (donor) Sutures: 5-0 monocryl, 6-0 prolene Indication for graft: involvement of free margin The surgical defect, donor site, and surrounding skin were prepped with iodine. The defect was prepared and edges were trimmed. Hemostasis was achieved with electrodesiccation. A donor site on the left cheek with characteristics of good color and texture match was identified and outlined to fit the defect. A 15 blade was used to incise the graft to adipose along with standing cones to facilitate linear repair of the donor site. The graft was thinned and trimmed. Simple interrupted and simple running 5-0 monocryl and 6-0 prolene sutures were used to secure the graft to the recipient site. The donor site was then addressed. Intermediate repair of the donor site was performed to preserve the functional anatomy. Wide undermining was performed. Hemostasis was achieved with electrodesiccation. The subcutaneous tissue and dermis were closed with buried vertical mattress sutures. Epidermal closure was achieved with running sutures. The wound was cleansed with saline and ointment was applied along the wound surface. A sterile pressure dressing was applied. Wound care instructions were given verbally and in writing. The patient left the operating suite in stable condition. Patient was informed that additional refinement of the resulting surgical scar may be used as a second stage of this reconstruction. Postoperative cephalexin 500mg TID x7 days was/were sent to the patient's pharmacy. The patient will follow up in 1 week(s) for suture removal. Dr. Green performed the entire surgery, and documentation used to initiate this operative report. I entered the information in our [employer] DocFlowsheet with the information provided by Dr. Green on his handwritten, paper format, surgical worksheet, which was then used to initiate the create of this note. Dr. Green then reviewed and edited the note as needed to complete the note. Ama Henley LPN I have reviewed the note, edited it as necessary and performed the entire procedure. Shant Green MD Electrical Sign Wirer Helper 12/14/2023 Shant Green MD PROCEDURE/MINOR SURG ICAL ORDERABLES * NJ TANGNTL BX SKIN SINGLE LES (12/08/2023 9:46 AM CDT) Narrative Shant Green MD - 12/08/2023 9:46 AM CDT Shant Green MD 12/08/2023 9:46 AM Risks, benefits and alternatives to shave biopsy were discussed with the patient. Pt understands the possibility for the following: Bleeding, infection, scar (100% chance), the possibility of non-diagnostic reading and the potential need for further testing or treatment, including surgical. Stated clearly the size of the specimen and the need to obtain adequate tissue for the most accurate path reading. Pt accepts all of above, verbal consent was obtained. Location: left nasal ala Diagnosis: neoplasm of uncertain behavior, r/o basal cell carcinoma Skin prep: Alcohol Anesthesia: 1% lidocaine with epinephrine Hemostasis: Aluminum chloride Dressing and wound care discussed Shant Green MD Shant Green MD PROCEDURE/MINOR SURG ICAL ORDERABLES * DERMATOPATHOLOGY (12/08/2023 12:00 AM CDT) Case Report Dermatopathology Report Case: [id number] Authorizing Provider: Shant Green MD Collected: 12/08/2023 12:00 AM Ordering Location: [facility] - Received: 12/08/2023 01:56 PM Dermatology Pathologist: Misty Capone MD Specimen: Skin, left nasal ala 11:41 AM CDT DERMATOPATHOLOGY LABORATORY Final Diagnosis Specimen A. SKIN, left nasal ala: BASAL CELL CARCINOMA, NODULAR TYPE (C44.311) 11:41 AM CDT DERMATOPATHOLOGY LABORATORY Clinical History R/o BCC 11:41 AM CDT DERMATOPATHOLOGY LABORATORY Gross Description Specimen A: Received is one formalin filled container labeled with the patient's name and designated left nasal ala. The specimen consists of a two (2) pieces of a shave biopsy measuring 3x1x1, 5x5x1 mm. Jar 0. 11:41 AM CDT DERMATOPATHOLOGY LABORATORY Microscopic Description Specimen A. SKIN, left nasal ala: Within the dermis there are aggregates of basaloid cells with a high nuclear to cytoplasmic ratio and peripheral palisading. 11:41 AM CDT DERMATOPATHOLOGY LABORATORY Disclaimer An external and internal positive and negative controls are appropriate for the histochemical, immunohistochemical and immunofluorescence stain(s) in this case (if any), except where stated explicitly. The performance characteristics of the stain(s) cited in this report were developed and its performance characteristic determined by the Dermatopathology Laboratory at [facility], directed by Dr. Heidi Ly. These tests need not be, and therefore are not, approved by the [place] Food and Drug Administration. The tests are used for clinical purposes. Billing Codes Specimen Charges Stain Charges 56928 1 11:41 AM CDT DERMATOPATHOLOGY LABORATORY Embedded Images 11:41 AM CDT DERMATOPATHOLOGY LABORATORY Pathology/Cytolog y TISSUE SPECIMEN FROM SKIN / Unknown 12/08/2023 12/08/2023 1:56 PM CDT Shant Green MD LAB - PATHOLOGY/CYTO LOGY ORDERABLES DERMATOPATHOLOGY LABORATORY [facility] - Department of Dermatology [address], [address] Floor [address] [phone] * (ABNORMAL) COMPREHENSIVE METABOLIC PANEL (11/29/2023 2:21 PM CDT) Only the most recent of9 resultswithin the time period is included. BUN 14 7 - 26 mg/dL 11/29/2023 3:07 PM [facility] Creatinine 0.90 0.56 - 0.96 mg/dL 11/29/2023 3:07 PM [facility] Sodium 141 136 - 145 mmol/L 11/29/2023 3:07 PM [facility] Potassium 4.2 3.5 - 4.5 mmol/L 11/29/2023 3:07 PM [facility] Chloride 105 98 - 107 mmol/L 11/29/2023 3:07 PM [facility] CO2 28 22 - 29 mmol/L 11/29/2023 3:07 PM [facility] Glucose 97 70 - 115 mg/dL 11/29/2023 3:07 PM [facility] Calcium 10.4(H) 8.4 - 10.2 mg/dL 11/29/2023 3:07 PM [facility] Protein Total 7.7 6.0 - 8.3 g/dL 11/29/2023 3:07 PM [facility] Albumin 4.3 3.4 - 5.0 g/dL 11/29/2023 3:07 PM [facility] Bilirubin Total 0.3 0.2 - 1.2 mg/dL 11/29/2023 3:07 PM [facility] Alkaline Phosphatase 86 40 - 150 U/L 11/29/2023 3:07 PM [facility] ALT 10 5 - 55 U/L 11/29/2023 3:07 PM [facility] AST 15 5 - 34 U/L 11/29/2023 3:07 PM CDT [facility] Anion Gap 8 6 - 16 11/29/2023 3:[address] [facility] BUN/Creatinine Ratio 16 7 - 23 11/29/2023 3:[address] [facility] Osmolality Calculated 292 275 - 295 mOsm/kg 11/29/2023 3:07 PM T [facility] Albumin/Globulin Ratio 1.3 1.1 - 2.3 11/29/2023 3:[address] [facility] eGFR by CKD-EPI 74(L) >=90 mL/min/1.7 3 m2 11/29/2023 3:07 PM CDT [facility] Blood BLOOD SPECIMEN / Unknown Lab Venipuncture / Unknown 11/29/2023 2:21 PM CDT 11/29/2023 2:39 PM CDT Clyde Colunga MD LAB - CHEMISTRY [facility] Organization Address City/State/ZIP Co de Phone Number [address] [address], [facility] [phone] * MRI ABDOMEN W MRCP WWO CONT W3D (08/12/2023 12:03 PM CABLE FERRY OPERATOR) Only the most recent of2 resultswithin the time period is included. Anatomical Region Laterality Modality Abdomen Magnetic Resonan ce 08/12/2023 1:12 PM CABLE FERRY OPERATOR Impressions 08/13/2023 11:44 AM CABLE FERRY OPERATOR Impression: 1.Mild central intrahepatic and proximal common bile duct dilatation. Focal stricture as the common bile duct enters the pancreatic head. The common bile duct becomes normal in caliber just proximal to the sphincter of Oddi. The main pancreatic duct is mildly prominent in the pancreatic body and tail. No evidence of obstructing stone or mass. Consider correlation with ERCP/endoscopic ultrasound if clinically indicated. 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 Report dictated by Radhames Flores DO (residential housekeeper). I, Priyanka Barcenas MD have personally reviewed and interpreted this examination/study. > Interpreting Provider: Priyanka Barcenas MD on 08/13/2023 11:44 AM Narrative 08/13/2023 11:44 AM CABLE FERRY OPERATOR PROCEDURE: MRI ABDOMEN W MRCP WWO CONT W3D, DATE/TIME OF EXAM: 08/12/2023 12:04 PM, LOCATION [facility] INDICATION: R13.10: Dysphagia, unspecified type K86.89: Pancreatic mass ADDITIONAL CLINICAL INFORMATION: Ordering Provider Reason For Exam: hx pancreatic head mass? COMPARISON: MRI abdomen dated 07/31/2014. CT abdomen pelvis dated 02/23/2020 TECHNIQUE: MRI of the abdomen was performed prior to and following the uneventful administration of 12 mL of Multihance intravenous gadolinium contrast according to standard protocol, including dynamic imaging for MRCP. Image data was analyzed on a dedicated 3-D workstation for the MRCP portion of the exam. Findings: Lower Chest: Normal. Bilateral breast implants are present. Hepatobiliary system Liver: Normal size with smooth surface contour. No arterially enhancing observations. Steatosis: None. Varices: None. Spleen: Normal. Ascites: None. Vasculature Portal and hepatic veins: Patent. Arterial anatomy: The common hepatic artery arises directly from the aorta. The upper abdominal vasculature is otherwise normal. Retroperitoneum Adrenals: Normal. Kidneys: Caliectasis of the lower polar moiety of the right kidney is noted. Left kidney collecting system is unremarkable. Lymph nodes: No lymphadenopathy. Gastrointestinal: Imaged bowel and mesentery are normal. Other findings: Small fat and fluid containing umbilical hernia. MRCP: The gallbladder appears normal. There is mild central intrahepatic biliary ductal dilatation. There is severe focal narrowing of the common bile duct as it enters the pancreatic head, for reference (series 3, image 24). The common bile duct becomes normal in caliber just before the sphincter of Oddi (series 3, image 23). Pancreatic parenchyma is normal. No evidence of pancreatic head mass. The main pancreatic duct is mildly prominent within the body and tail measuring 4 mm in diameter (series 4, image 20). Procedure Note Priyanka Barcenas MD - 08/13/2023 PROCEDURE: MRI ABDOMEN W MRCP WWO CONT W3D, DATE/TIME OF EXAM:08/12/2023 12:04 PM, LOCATION [facility] INDICATION: R13.10: Dysphagia, unspecified type K86.89: Pancreatic mass ADDITIONAL CLINICAL INFORMATION: Ordering Provider Reason For Exam: hx pancreatic head mass? COMPARISON: MRI abdomen dated 07/31/2014. CT abdomen pelvis dated 02/23/2020 TECHNIQUE: MRI of the abdomen was performed prior to and following the uneventful administration of 12 mL of Multihance intravenous gadolinium contrast according to standard protocol, including dynamic imaging for MRCP. Image data was analyzed on a dedicated 3[facility]D workstation [facility] portion of the exam. Findings: Lower Chest: Normal. Bilateral breast implants are present. Hepatobiliary system Liver: Normal size with smooth surface contour. No arterially enhancing observations. Steatosis: None. Varices: None. Spleen: Normal. Ascites: None. Vasculature Portal and hepatic veins: Patent. Arterial anatomy: The common hepatic artery arises directly from theaorta. The upper abdominal vasculature is otherwise normal. Retroperitoneum Adrenals: Normal. Kidneys: Caliectasis of the lower polar moiety of the right kidney is noted. Left kidney collecting system is unremarkable. Lymph nodes: No lymphadenopathy. Gastrointestinal: Imaged bowel and mesentery are normal. Other findings: Small fat and fluid containing umbilical hernia. MRCP: The gallbladder appears normal. There is mild central intrahepaticbiliary ductal dilatation. There is severe focal narrowing of the common bileduct as it enters the pancreatic head, for reference (series 3, image 24).The common bile duct becomes normal in caliber just before the sphincter of Oddi (series 3, image 23). Pancreatic parenchyma is normal. No evidence of pancreatic head mass.The main pancreatic duct is mildly prominent within the body and tailmeasuring 4 mm in diameter (series 4, image 20). Impression: 1.Mild central intrahepatic and proximal common bile duct dilatation.Focal stricture as the common bile duct enters the pancreatic head. The common bile duct becomes normal in caliber just proximal to the sphincter ofOddi. The main pancreatic duct is mildly prominent in the pancreatic body and tail. No evidence of obstructing stone or mass. Consider correlationwith ERCP/endoscopic ultrasound if clinically indicated. 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 Report dictated by Radhames Flores DO (residential housekeeper). I, Priyanka Barcenas MD have personally reviewed and interpreted this examination/study. > Interpreting Provider: Priyanka Barcenas MD on 411:44 AM Reji Arguelles MD MR ORDERABLES * CREATININE - POCT INTERFACED (08/12/2023 11:18 AM CABLE FERRY OPERATOR) Creatinine POCT 0.74 0.30 - 1.30 mg/dL 08/12/2023 11:20 AM CABLE FERRY OPERATOR [facility] eGFR >90 >90 mL/min/1.7 3 m2 08/12/2023 11:20 AM CABLE FERRY OPERATOR [facility] Blood BLOOD SPECIMEN / Unknown 08/12/2023 11:18 AM CABLE FERRY OPERATOR 08/12/2023 11:20 AM CABLE FERRY OPERATOR Reji Arguelles MD LAB - POINT OF CARE ORDERABLES Performing Organization Address City/State/[facility] Co de Phone Number [address] [address], [facility] [phone] * FL ESOPHAGRAM (08/12/2023 10:55 AM CABLE FERRY OPERATOR) Anatomical Region Laterality Modality Chest Radiographic [place] ging 08/12/2023 11:2 7 AM CABLE FERRY OPERATOR Impressions 08/13/2023 9:41 AM CABLE FERRY OPERATOR IMPRESSION: Normal esophagram. Report dictated by Kianna Tovar MD I, Bryce Kurtz DO have personally reviewed and interpreted this examination/study. > Interpreting Provider: Bryce Kurtz DO on 08/13/2023 9:41 AM Narrative 08/13/2023 9:41 AM CABLE FERRY OPERATOR PROCEDURE: FL ESOPHAGRAM DATE/TIME OF EXAM: 08/12/2023 11:13 AM CLINICAL INFORMATION: None relevant/not provided if blank. Indication: R13.10: Dysphagia, unspecified type Additional History: FLUOROSCOPY DOSE: 35 mGy Reference air kerma (ka,r). FLUOROSCOPY TIME: 3.98 minutes; Number of images: TECHNIQUE: 1.The patient was administered 250 mL of thin barium by mouth and AP upright radiographs were obtained at 1, 2, and 5 minutes. 2.Fluoroscopic images were obtained using single contrast technique while the patient ingested contrast. FINDINGS: Timed esophageal emptying study: Barium column at 1 minute: Height: 0, Width: 0 Barium column at 2 minutes: Height: 0, Width: 0 Barium column at 5 minutes: Height: 0, Width: 0 Esophagram: The esophageal contour and caliber are normal. There is no esophageal mass, ulcer, or stricture. The esophageal motility was normal. There was passage of contrast through a normal gastroesophageal junction. There was no hiatal hernia. The visible portions of the stomach were normal. Reflux was not seen without or with provocative maneuvers. The patient swallowed a 13 mm barium tablet which progressed to the stomach after a brief delay at the level of the aortic notch. Procedure Note Bryce Kurtz DO - 08/13/2023 PROCEDURE: FL ESOPHAGRAM DATE/TIME OF EXAM: 08/12/2023 11:13 AM CLINICAL INFORMATION: None relevant/not provided if blank. Indication: R13.10: Dysphagia, unspecified type Additional History: FLUOROSCOPY DOSE: 35 mGy Reference air kerma (ka,r). FLUOROSCOPY TIME: 3.98 minutes; Number of images: TECHNIQUE: 1.The patient was administered 250 mL of thin barium by mouth and AP upright radiographs were obtained at 1, 2, and 5 minutes. 2.Fluoroscopic images were obtained using single contrast techniquewhile the patient ingested contrast. FINDINGS: Timed esophageal emptying study: Barium column at 1 minute: Height: 0, Width: 0 Barium column at 2 minutes: Height: 0, Width: 0 Barium column at 5 minutes: Height: 0, Width: 0 Esophagram: The esophageal contour and caliber are normal. There is no esophagealmass, ulcer, or stricture. The esophageal motility was normal. There waspassage of contrast through a normal gastroesophageal junction. There was nohiatal hernia. The visible portions of the stomach were normal. Reflux was not seen without or with provocative maneuvers. The patient swallowed a 13mm barium tablet which progressed to the stomach after a brief delay at the level of the aortic notch. IMPRESSION: Normal esophagram. Report dictated by Kianna Tovar MD I, Bryce Kurtz DO have personally reviewed and interpreted this examination/study. > Interpreting Provider: Bryce Kurtz DO on 08/13/2023 9:41 AM Reji Arguelles MD FLUOROSCOPY ORDERABL ES * ENDOSCOPY, PROCTOSIGMOID (07/16/2021 7:48 AM CABLE FERRY OPERATOR) Report Endoscopy POC Endoscopy Department Report _ Patient Name: Velia Joyner Procedure Date: 07/16/2021 7:48 AM Date of : 1965 Classification: Outpatient Gender: Female Ethnicity: Not or Race: White _ Providers: Taty Oneal MD, Susannah Ochoa (Fellow) Referring MD: Procedure: Flexible Sigmoidoscopy Indications: Diarrhea, thickening of rectosigmoid area on CT Medications: Fentanyl 125 micrograms IV, Midazolam 5 mg IV Description of Procedure: Pre-Anesthesia Assessment: - Prior [...] Prior Anticoagulants: The patient has taken no previous anticoagulant or antiplatelet agents. ASA Grade Assessment: II - A patient with mild systemic disease. After reviewing the risks and benefits, the patient was deemed in satisfactory condition to undergo the procedure. After obtaining informed consent, the endoscope was passed under direct vision. Throughout the procedure, the patient's blood pressure, pulse, and oxygen saturations were monitored continuously. The Endoscope was introduced through the anus and advanced to the left transverse colon. The flexible sigmoidoscopy was accomplished without difficulty. The patient tolerated the procedure well. The quality of the bowel preparation was excellent. Findings: Hemorrhoids were found on perianal exam. The colon (entire examined portion) appeared normal (scope advanced to the level of the left transverse colon). Biopsies for histology were taken with a cold forceps from the left colon for evaluation of microscopic colitis. A 6 mm polyp was found in the rectum. The polyp was sessile. The polyp was removed with a jumbo cold forceps. Polyp resection was incomplete. The resected tissue was retrieved. External hemorrhoids were found during retroflexion. The hemorrhoids were medium-sized. Estimated Blood Loss: Estimated blood loss: none. Complications: No immediate complications. Impression: - Hemorrhoids found on perianal exam. - The entire examined colon is normal. Biopsied. - One 6 mm polyp in the rectum, removed with a jumbo cold forceps. Incomplete resection. Resected tissue retrieved. - External hemorrhoids. Recommendation: - Continue present medications. - Discharge patient to home. - Resume previous diet. - Await pathology results. Attending Participation: I was present and participated during the entire procedure, including non-reyez portions. Procedure Code(s): --- Professional --- 35207, Sigmoidoscopy, flexible; with biopsy, single or multiple Diagnosis Code(s): --- Professional --- K64.8, Other hemorrhoids K62.1, Rectal polyp R19.7, Diarrhea, unspecified CPT copyright 2019 [place] [employer]. All rights reserved. The codes documented in this report are preliminary and upon inspector watch train review may be revised to meet current compliance requirements. Taty Oneal MD 07/16/2021 8:54:16 AM Note Initiated On: 07/16/2021 7:48 AM Number of Addenda: [address] [facility] 07/16/2021 7:48 AM CABLE FERRY OPERATOR Taty Toussaint MD GI PROCEDURE ORDE [facility] Organization Address City/State/ZIP Co de Phone Number [facility] * (ABNORMAL) URINALYSIS W/MICROSCOPIC REFLEX TO CULTURE (06/23/2021 10:58 AM CABLE FERRY OPERATOR) Only the most recent of2 resultswithin the time period is included. Color UA Yellow Straw, Yellow 06/23/2021 11:28 AM [facility] Clarity UA Clear Clear 06/23/2021 11:28 AM [facility] Specific [place] UA 1.010 1.005 - 1.030 06/23/2021 11:28 AM [facility] pH UA 7.0 5.0 - 8.0 pH 06/23/2021 11:28 AM [facility] Protein UA Negative Negative 06/23/2021 11:28 AM [facility] Glucose UA Negative Negative 06/23/2021 11:28 AM [facility] Ketone UA Negative Negative 06/23/2021 11:28 AM [facility] Bilirubin UA Negative Negative 06/23/2021 11:28 AM [facility] Blood UA Negative Negative 06/23/2021 11:28 AM [facility] Nitrite UA Negative Negative 06/23/2021 11:28 AM [facility] Leukocyte Esterase Negative Negative 06/23/2021 11:28 AM [facility] Urobilinogen UA Negative Negative mg/dL 06/23/2021 11:28 AM [facility] RBC UA 0-2 None Seen, 0-2, 3-5 /HPF 06/23/2021 11:28 AM [facility] WBC UA None Seen None Seen, 0-5 /HPF 06/23/2021 11:28 AM [facility] Squamous Epithelial Cells UA 0-2 None Seen, 0-2, 3-5 /HPF 06/23/2021 11:28 AM [facility] Mucus UA 1+ /LPF 06/23/2021 11:28 AM [facility] Amorphous Crystals Rare(A) None /HPF 06/23/2021 11:28 AM [facility] Urine URINE SPECIMEN OBTAINED BY CLEAN CATCH PROCEDURE / Unknown Collection / Unknown 06/23/2021 10:58 AM CABLE FERRY OPERATOR 06/23/2021 11:17 AM [facility] - 06/23/2021 11:28 AM [facility] Culture Not Indicated Howie Fletcher MD LAB - URINALYSIS ORD ERABLES [facility] [address] [place] [address], [facility] [phone] * TSH (05/03/2021 12:49 PM CDT) Only the most recent of2 resultswithin the time period is included. [facility] TSH 1.13 0.40 - 4.50 mIU/L [facility] Comment: REPORT COMMENT: FASTING:YES COLLECTION KIT GIVEN TO PATIENT. PATIENT ADVISED TO RETURN. Test Performed at: [facility] [address] [place] [address] SAFIA RESTREPO DO,MPH 05/03/2021 12:4 9 PM CDT 05/03/2021 12:51 PM CDT Stephanie Cormier MD LAB - CHEMISTRY OR DERABLES Performing Organization Address [facility] Co de Phone Number [facility] [address] [place] [phone] * LAB MISC TEST (05/13/2020) Blood BLOOD SPECIMEN / Unknown Olga Adams MD LAB SEND OUT * FAT QUALITATIVE FECES RANDOM (05/03/2020 8:00 AM CDT) [facility] Fat Fecal Qualitative Normal Normal [facility] Comment: REPORT COMMENT: HAD WBC ON HOLD ALL OTHER TESTS ADDED BY PAPER REQ. FASTING:NO Test Performed at: [facility] [address] [place] [address] ZEINA DAS MD,PHD 05/03/2020 8:00 AM CDT 05/04/2020 4:15 AM CDT Olga Adams MD LAB - BODY FLUID ORD ERABLES Performing Organization Address [facility]/ZIP Co de Phone Number [facility] [id number] [place] [address] * GIARDIA CRYPTOSPORIDIUM ANTIGEN PANEL (05/03/2020 8:00 AM CDT) [facility] Comment: CRYPTOSPORIDIUM AG, DFA Micro Number: [id number] Test Status: Final Specimen Source: STOOL Specimen Quality: Adequate Cryptosporidium: Not Detected Reference Range: Not Detected NOTE: Due to intermittent shedding, one negative sample does not necessarily rule out the presence of a parasitic infection. Test Performed at: [facility] [email or web address] [address] ANNIE FELDMAN MD [facility] Comment: GIARDIA AG, EIA, STOOL Micro Number: [id number] Test Status: Final Specimen Source: STOOL Specimen Quality: Adequate Giardia Result 1: Not Detected Reference Range: Not Detected NOTE: Due to intermittent shedding, one negative sample does not necessarily rule out the presence of a parasitic infection. Test Performed at: [facility] [email or web address] [address] ANNIE FELDMAN MD 05/03/2020 8:00 AM CDT 05/03/2020 11:11 PM CDT Olga Adams MD LAB - MICROBIOLOGY O RDERABLES [address] [address] * O+P PANEL (05/03/2020 8:00 AM CDT) Trichrome (1) [facility] Comment: OVA AND PARASITES, CONC AND PERM SMEAR Micro Number: [id number] Test Status: Final Specimen Source: STOOL Specimen Quality: Adequate CONCENTRATION 1: No ova or parasites seen TRICHROME 1: No ova or parasites seen Routine Ova and Parasite exam may not detect some parasites that occasionally cause diarrheal illness. Test code(s) 11616 (Cryptosporidium Ag., DFA) and/or 67591 (Cyclospora and Isospora Exam) may be ordered to detect these parasites. One negative sample does not necessarily rule out the presence of a parasitic infection. For additional information, please refer to https://education.[facility]/faq/QGH422 (This link is being provided for informational/ educational purposes only.) REPORT COMMENT: HAD WBC ON HOLD ALL OTHER TESTS ADDED BY PAPER REQ. FASTING:NO Test Performed at: [id number] [address] ANNIE FELDMAN MD 05/03/2020 8:00 AM CDT 05/03/2020 11:11 PM CDT Olga Adams MD LAB - MICROBIOLOGY O CODY Performing Organization Address [facility] [place] [address] * CULTURE STOOL PANEL (05/03/2020 8:00 AM CDT) [facility] Comment: SHIGA TOXINS, EIA W/RFL TO E.COLI O157 CULTURE Micro Number: [id number] Test Status: Final Specimen Source: STOOL Specimen Quality: Adequate Shiga Toxin: Not Detected Reference Range: Not Detected Culture [facility] Comment: CAMPYLOBACTER, CULTURE Micro Number: [id number] Test Status: Final Specimen Source: STOOL Specimen Quality: Adequate Result: No enteric Campylobacter isolated Culture [facility] Comment: SALMONELLA AND SHIGELLA, CULTURE Micro Number: [id number] Test Status: Final Specimen Source: STOOL Specimen Quality: Adequate Result: No Salmonella or Shigella isolated Test Performed at: [id number] [address] ANNIE FELDMAN MD 05/03/2020 8:00 AM CDT 05/03/2020 11:11 PM CDT Olga Adams MD LAB - MICROBIOLOGY O CODY Performing Organization Address [facility] [place] [address] * EGD (02/28/2020 1:39 PM CDT) Report Endoscopy POC Endoscopy Department Report __ _ Patient Name: Velia Joyner Procedure Date: 02/28/2020 1:39 PM Date of : 1965 Classification: Outpatient Gender: Female Ethnicity: Not or Race: White __ _ Providers: Taty Oneal MD Referring MD: Howie Fletcher MD (Referring MD) Procedure: Upper GI endoscopy Indications: Abdominal pain, Diarrhea Medications: Monitored Anesthesia Care Description of Procedure: Pre-Anesthesia Assessment: - Prior [...] Prior Anticoagulants: The patient has taken no previous anticoagulant or antiplatelet agents. ASA Grade Assessment: III - A patient with severe systemic disease. After reviewing the risks and benefits, the patient was deemed in satisfactory condition to undergo the procedure. After obtaining informed consent, the endoscope was passed under direct vision. Throughout the procedure, the patient's blood pressure, pulse, and oxygen saturations were monitored continuously.The upper GI endoscopy was accomplished without difficulty. The patient tolerated the procedure well. The Endoscope was introduced through the mouth, and advanced to the third part of duodenum. No pictures were obtained due to software issue. Findings: Esophagogastric landmarks were identified: the Z-line was found at 41 cm, the gastroesophageal junction was found at 41 cm and the site of hiatal narrowing was found at 43 cm from the incisors. This is consistent wtih a 2 cm sliding hiatal hernia. The esophagus was normal. Diffuse mildly erythematous mucosa without bleeding was found in the gastric body and in the gastric antrum. Biopsies were taken with a cold forceps for histology. The cardia and gastric fundus were normal on retroflexion. The examined duodenum was normal. Attempts were made to aspirate fluid from the small bowel for colony count, but there was an insufficient volume of volume of fluid present for aspiration. Biopsies were taken with a cold forceps for histology, given the patient's history of diarrhea. Estimated Blood Loss: Estimated blood loss: none. Complications: No immediate complications. Impression: - Esophagogastric landmarks identified. Two cm sliding hiatal hernia noted. - Normal esophagus. - Erythematous mucosa in the gastric body and antrum. Biopsied. - Normal examined duodenum. Biopsied. Not enough fluid present in small bowel for aspiration for colony count. Recommendation: - Resume previous diet. - Continue present medications. - Await pathology results. - Return to GI clinic as previously scheduled. Attending Participation: I personally performed the entire procedure. Procedure Code(s): --- Professional --- 26429, Esophagogastroduode noscopy, flexible, transoral; with biopsy, single or multiple Diagnosis Code(s): --- Professional --- K31.89, Other diseases of stomach and duodenum R10.9, Unspecified abdominal pain R19.7, Diarrhea, unspecified CPT copyright 2019 [employer] [place] [employer]. All rights reserved. The codes documented in this report are preliminary and upon inspector watch train review may be revised to meet current compliance requirements. ___ Taty Oneal MD 02/28/2020 1:48:03 PM Note Initiated On: 02/28/2020 1:39 PM Number of Addenda: 0 [facility] [address] [place] [address] [facility] 02/28/2020 1:39 PM CDT Taty Toussaint MD GI PROCEDURE TIANNA HELMS [facility] Organization Address City/State/ZIP Co de Phone Number [facility] * POTASSIUM WHOLE BLD (02/28/2020 12:36 PM CDT) Potassium Whole Blood 4.3 3.5 - 5.5 mmol/L 02/28/2020 12:46 PM CDT [facility] Blood WHOLE BLOOD SPECIMEN / Unknown Venipuncture / Unknown 02/28/2020 12:36 PM CDT 02/28/2020 12:44 PM CDT Taty Toussaint MD LAB - CHEMISTRY O RDERABLES [address] [address], [facility] [phone] * CT ABDOMEN PELVIS W CONTRAST (02/23/2020 9:38 PM CDT) Anatomical Region Laterality Modality Abdomen, Pelvis Computed Tomogra phy 02/23/2020 9:39 PM CDT Impressions 02/24/2020 9:56 AM CDT IMPRESSION: 1.Wall thickening of the descending and sigmoid colon. Considerations include infectious colitis and inflammatory bowel disease. 2.Small volume pneumobilia, may be related to patient's surgical history of pancreatic head mass resection and prior common bile duct stent placement. 3.Dilated pancreatic duct to 4 mm, unchanged. 4.Small pericardial effusion. 5.Dilated gonadal veins, unchanged from 2014. This can be seen in the setting of pelvic congestion syndrome due to incompetent valves in the ovarian veins or compression of the left renal vein by the superior mesenteric artery (nutcracker phenomenon). 6.Small volume free intraperitoneal fluid, nonspecific. Dictated by Josee Whittaker MD (residential housekeeper). A note was sent to the ED via the [employer] reporting system regarding bowel findings on 02/24/2020 at 9:[address] Garibay discussed with OLIVIA Pedro on 02/24/2020 at 9:56 AM. I, Dr. ALLISON GARIBAY M.D. have personally reviewed and interpreted this examination/study. This report was electronically signed by ALLISON GARIBAY M.D. on 02/24/2020 9:56 AM . Narrative 02/24/2020 9:56 AM CDT EXAMINATION: Computed tomography (CT) of the abdomen and pelvis with contrast HISTORY: 54-year-old female with a history of fibromyalgia, history of a benign pancreatic head mass (2004, status post resection), CBD stricture status post stent placement and gallbladder polyps who presents for evaluation of abdominal pain and nausea, vomiting, diarrhea TECHNIQUE: CT of the abdomen and pelvis was performed following the uneventful administration of 100 mL of Isovue-370 intravenous contrast according to standard protocol. COMPARISON: MRI abdomen from 07/31/2014, abdominal ultrasound from 08/05/2016, outside CT done 05/12/2014 FINDINGS: Motion degrades some of the images. Mild bilateral dependent atelectasis is present. Otherwise no focal consolidation is seen in the visible lung bases. The heart size is normal; there is a small pericardial effusion. Bilateral breast implants are noted and appear to be intact. Other than a focus of fatty infiltration adjacent to the falciform ligament, the liver enhances homogenously. The gallbladder is normal without evidence of wall thickening, pericholecystic fluid, or gallstones. The intrahepatic and extrahepatic bile ducts are nondilated. There is small volume pneumobilia, which may be related to patient's surgical history of pancreatic head mass resection and prior common bile duct stent. The spleen enhances homogenously without focal lesion. The pancreatic duct is dilated, measuring up to 4 mm in the pancreatic tail (series 5 image 52), unchanged from 2014. The remaining pancreas is otherwise unremarkable. The adrenal glands are normal. The kidneys enhance symmetrically. There is no evidence of renal calculus or hydronephrosis. The distal esophagus and stomach appear normal. The small bowel and large bowel are normal in caliber without evidence of obstruction. There is colonic wall thickening of the descending and sigmoid colon, greatest at the sigmoid that may indicate infectious or inflammatory process. The appendix is not seen. There is small volume free intraperitoneal fluid. There is no abdominal lymphadenopathy. The aorta is atherosclerotic but normal in caliber. There is a 2.0 cm fluid-filled umbilical hernia. The urinary bladder is partially distended with fluid and appears normal. The uterus is present, with an intrauterine device in place. A small amount of free pelvic fluid is seen. There is no pelvic lymphadenopathy. There are dilated collateral veins in the pelvis, left greater than right, with dilatation of the gonadal veins. Bone windows demonstrate no suspicious lytic or blastic lesions. The visible osseous structures are intact. Mild multilevel degenerative changes are noted in the spine. Small subcortical cysts in the hips bilaterally may represent degenerative changes. Procedure Note Allison Garibay MD - 02/24/2020 EXAMINATION: Computed tomography (CT) of the abdomen and pelvis with contrast HISTORY: 54-year-old female with a history of fibromyalgia, history of a benign pancreatic head mass (2003, status post resection), CBD stricture status post stent placement and gallbladder polyps who presents for evaluation of abdominal pain and nausea, vomiting, diarrhea TECHNIQUE: CT of the abdomen and pelvis was performed following the uneventful administration of 100 mL of Isovue-370 intravenous contrast according to standard protocol. COMPARISON: MRI abdomen from 07/31/2014, abdominal ultrasound from 08/05/2016, outside CT done 05/12/2014 FINDINGS: Motion degrades some of the images. Mild bilateral dependent atelectasis is present. Otherwise no focal consolidation is seen in the visible lung bases. The heart size isnormal; there is a small pericardial effusion. Bilateral breast implants arenoted and appear to be intact. Other than a focus of fatty infiltration adjacent to the falciform ligament, the liver enhances homogenously. The gallbladder is normal without evidence of wall thickening, pericholecystic fluid, orgallstones. The intrahepatic and extrahepatic bile ducts are nondilated. There is small volume pneumobilia, which may be related to patient's surgical history of pancreatic head mass resection and prior common bile duct stent. The spleen enhances homogenously without focal lesion. The pancreatic duct is dilated, measuring up to 4 mm in the pancreatic tail (series 5 image 52), unchanged from 2013. The remaining pancreas is otherwise unremarkable. The adrenal glands are normal. The kidneysenhance symmetrically. There is no evidence of renal calculus or hydronephrosis. The distal esophagus and stomach appear normal. The small bowel andlarge bowel are normal in caliber without evidence of obstruction. There is colonic wall thickening of the descending and sigmoid colon, greatest at the sigmoid that may indicate infectious or inflammatory process. The appendix is not seen. There is small volume free intraperitoneal fluid. There is no abdominal lymphadenopathy. The aorta is atherosclerotic but normal in caliber. There is a 2.0 cm fluid-filled umbilical hernia. The urinary bladder is partially distended with fluid and appearsnormal. The uterus is present, with an intrauterine device in place. A small amount of free pelvic fluid is seen. There is no pelvic lymphadenopathy. There are dilated collateral veins in the pelvis, left greater thanright, with dilatation of the gonadal veins. Bone windows demonstrate no suspicious lytic or blastic lesions. The visible osseous structures are intact. Mild multilevel degenerative changes are noted in the spine. Small subcortical cysts in the hips bilaterally may represent degenerative changes. IMPRESSION: 1.Wall thickening of the descending and sigmoid colon. Considerations include infectious colitis and inflammatory bowel disease. 2.Small volume pneumobilia, may be related to patient's surgical history of pancreatic head mass resection and prior common bile duct stent placement. 3.Dilated pancreatic duct to 4 mm, unchanged. 4.Small pericardial effusion. 5.Dilated gonadal veins, unchanged from 2014. This can be seen in the setting of pelvic congestion syndrome due to incompetent valves in the ovarian veins or compression of the left renal vein by the superior mesenteric artery (nutcracker phenomenon). 6.Small volume free intraperitoneal fluid, nonspecific. Dictated by Josee Whittaker MD (residential housekeeper). A note was sent to the ED via the [employer] reporting system regardingbowel findings on 02/24/2020 at 9:[address] Garibay discussed with Fatou Pedro 02/24/2020 at 9:56 AM. I, Dr. ALLISON GARIBAY M.D. have personally reviewed and interpreted this examination/study. This report was electronically signed by ALLISON GARIBAY M.D. on 02/24/2020 9:56 AM . Taty Joseph MD CT ORDERABLES * SARS-COV-2 (COVID-19) IN HOUSE (02/23/2020 8:07 PM CDT) COVID-19 PCR Not detected Not detected, Invalid 02/24/2020 3:05 AM CDT [facility] Microbiology SPECIMEN FROM NASOPHARYNGEAL STRUCTURE / Unknown Collection / Unknown 02/23/2020 8:07 PM CDT 02/23/2020 8:25 PM CDT Narrative [facility] - 02/24/2020 3:05 AM CDT This nucleic acid amplification assay performance was validated by [facility]. This test has been authorized by the Food and Drug administration (FDA)under an Emergency Use Authorization (EUA). This test has been validated in accordance with the FDA's guidance document Policy for Diagnostic Testing in Laboratories Certified to perform High Complexity Testing under CLIA prior to Emergency Use Authorization for Coronavirus Disease-2019 during the Public Health Emergency issued on September 23, 2019. FDA independent review of this validation is pending. This test is only authorized for the duration of time the declaration that circumstances exist justifying the authorization of emergency use of in vitro diagnostic tests for detection of SARS-CoV-2 virus and/or diagnosis of COVID-19 infection under section 564(b)(1) of the Act, 21 U.S.C 360bbb-3 (b)(1), unless the authorization is terminated or revoked sooner. Taty Joseph MD LAB - MICROBIOLOGY O RDERABLES [facility] [address] [place] [address], [facility] [phone] * HIV-1 HIV-2 ANTIGEN/ANTIBODY (02/23/2020 8:03 PM CDT) HIV Antigen/Antibod y 1 & 2 Non-reacti ve Non-react starla 02/23/2020 9:07 PM CDT [facility] Comment:Neither HIV-1 p24 An tigen nor HIV-1/HIV-2 Antibodies are detected. Blood BLOOD SPECIMEN / Unknown Venipuncture / Unknown 02/23/2020 8:03 PM CDT 02/23/2020 8:25 PM CDT Jimmy Rice MD LAB - HEMATOLOGY ORD NOBLE Performing Organization Address [facility] Co de Phone Number [address] [address], [facility] [phone] * HEPATITIS C AB SCREEN RFLX NAAT QUANT (02/23/2020 8:03 PM CDT) Hepatitis C Antibody Non-react starla Non-reac tive 02/23/2020 9:12 PM CDT [facility] Comment:Hepatitis C Antibody screen indicates no [...] Rice MD LAB - CHEMISTRY TIANNA HELMS Performing Organization Address City/[facility]/ZIP Co de Phone Number [address] [address], [place] [phone] * (ABNORMAL) C-REACTIVE PROTEIN (02/23/2020 7:19 PM CDT) [facility] C-Reactive Protein 3.8(H) <=0.5 mg/dL 02/23/2020 8:51 PM CDT [facility] Blood BLOOD SPECIMEN / Unknown Venipuncture / Unknown 02/23/2020 7:19 PM CDT 02/23/2020 8:21 PM CDT Taty Joseph MD LAB - CHEMISTRY ORDE RABGRECIA [address] [phone] * ERYTHROCYTE SEDIMENTATION RATE (02/23/2020 7:19 PM CDT) [facility] Erythrocyte Sedimentation Rate Westergren 21 0 - 30 MM/HR 02/23/2020 8:46 PM CDT [facility] Blood BLOOD SPECIMEN / Unknown Venipuncture / Unknown 02/23/2020 7:19 PM CDT 02/23/2020 8:21 PM CDT Taty Joseph MD LAB - HEMATOLOGY ORD ERABLES [address] [phone] * (ABNORMAL) CBC W AUTO DIFFERENTIAL (02/23/2020 7:19 PM CDT) Only the most recent of10 resultswithin the time period is included. Pathologist [facility] [place] WBC 7.4 3.5 - 10.5 10 3/uL 02/23/2020 8:27 PM CDT [facility] RBC 4.27 3.90 - 5.00 10 6/uL 02/23/2020 8:27 PM CDT [facility] Hemoglobin 12.7 12.0 - 15.5 g/dL 02/23/2020 8:27 PM CDT [facility] Hematocrit 38.9 35.0 - 45.0 % 02/23/2020 8:27 PM [facility] MCV 91.1 81.0 - 97.0 fL 02/23/2020 8:27 PM [facility] MCH 29.7 28.0 - 34.0 pg 02/23/2020 8:27 PM [facility] MCHC 32.6 32.0 - 36.0 g/dL 02/23/2020 8:27 PM [facility] Platelet Count 211 150 - 400 10 3/uL 02/23/2020 8:27 PM [facility] RDW-SD 42.5 36.0 - 50.0 fL 02/23/2020 8:27 PM [facility] RDW-CV 12.7 11.2 - 14.8 % 02/23/2020 8:27 PM [facility] MPV 9.7 9.3 - 12.8 fL 02/23/2020 8:27 PM [facility] nRBC Absolute 0.00 0 10 3/uL 02/23/2020 8:27 PM [facility] nRBC Auto 0.0 0 /100 WBC 02/23/2020 8:27 PM [facility] Neutrophils % 73.0(H) 35.0 - 70.0 % 02/23/2020 8:27 PM [facility] Lymphocytes % 14.8(L) 19.7 - 55.1 % 02/23/2020 8:27 PM [facility] Monocytes % 11.3 3.0 - 15.0 % 02/23/2020 8:27 PM [facility] Eosinophils % 0.3 0.0 - 6.0 % 02/23/2020 8:27 PM [facility] Basophil % 0.3 0.0 - 1.5 % 02/23/2020 8:27 PM [facility] Neutrophils Absolute 5.4 1.6 - 7.0 10 3/uL 02/23/2020 8:27 PM [facility] Lymphocyte Absolute 1.1 0.8 - 2.9 10 3/uL 02/23/2020 8:27 PM [facility] Monocytes Absolute 0.84(H) 0.14 - 0.66 10 3/uL 02/23/2020 8:27 PM [facility] Eosinophils Absolute 0.02 0.00 - 0.45 10 3/uL 02/23/2020 8:27 PM CDT [facility] Basophils Absolute 0.02 0.00 - 0.06 10 3/uL 02/23/2020 8:27 PM CDT [facility] Immature Granulocytes % 0.3 0.0 - 1.0 % 02/23/2020 8:27 PM CDT [facility] Blood BLOOD SPECIMEN / Unknown Venipuncture / Unknown 02/23/2020 7:19 PM CDT 02/23/2020 8:21 PM CDT Taty Joseph MD LAB - HEMATOLOGY ORD NOBLE Performing Organization Address [facility]/[place] [address], [facility] [phone] * LIPASE BLOOD (02/23/2020 7:19 PM CDT) Only the most recent of3 resultswithin the time period is included. Lipase 27 8 - 78 Units/L 02/23/2020 8:51 PM CDT [facility] Blood BLOOD SPECIMEN / Unknown Venipuncture / Unknown 02/23/2020 7:19 PM CDT 02/23/2020 8:21 PM CDT Taty Joseph MD LAB - CHEMISTRY TIANNA HELMS Performing Organization Address [facility] Co de Phone Number [address] [address], [facility] [phone] * LACTIC ACID BLOOD (02/23/2020 7:19 PM CDT) Lactic Acid-Stat 1.0 0.5 - 2.0 mmol/L 02/23/2020 8:43 PM CDT [facility] Blood BLOOD SPECIMEN / Unknown Venipuncture / Unknown 02/23/2020 7:19 PM CDT 02/23/2020 8:21 PM CDT Taty Joseph MD LAB - CHEMISTRY TIANNA HELMS [address] [address], [facility] [phone] * AMYLASE BLOOD (02/23/2020 7:19 PM CDT) Pathologist [facility] [place] Amylase 42 25 - 125 Units/L 02/23/2020 8:51 PM T [facility] Blood BLOOD SPECIMEN / Unknown Venipuncture / Unknown 02/23/2020 7:19 PM CDT 02/23/2020 8:21 PM CDT Taty Joseph MD LAB - CHEMISTRY TIANNA HELMS [address] [address], [facility] [phone] * (ABNORMAL) URINALYSIS W/MICROSCOPIC NO CULTURE (02/20/2020 7:20 AM CDT) Pathologist [facility] [place] Color UA Yellow Straw, Yellow, Colorless 02/20/2020 7:36 AM [facility] Clarity UA Cloudy(A) Clear, Slt Cloudy 02/20/2020 7:36 AM [facility] Specific [place] UA 1.023 1.005 - 1.030 02/20/2020 7:36 AM [facility] pH UA 5.0 5.0 - 8.0 pH 02/20/2020 7:36 AM [facility] Protein UA Negative Negative mg/dL 02/20/2020 7:36 AM [facility] Glucose UA Negative Negative mg/dL 02/20/2020 7:36 AM [facility] Ketone UA Trace(A) Negative mg/dL 02/20/2020 7:36 AM [facility] Bilirubin UA Negative Negative mg/dL 02/20/2020 7:36 AM [facility] Blood UA 2+(A) Negative 02/20/2020 7:36 AM [facility] Nitrite UA Negative Negative 02/20/2020 7:36 AM [facility] Leukocyte Esterase Trace(A) Negative 02/20/2020 7:36 AM [facility] Urobilinogen UA Negative Negative mg/dL 02/20/2020 7:36 AM CDT [facility] RBC UA 3-5 None Seen, 0-2, 3-5 /HPF 02/20/2020 7:36 AM CDT [facility] WBC UA 11-20(A) None Seen, 0-5 /HPF 02/20/2020 7:36 AM CDT [facility] Bacteria UA 3+(A) None, Trace /HPF 02/20/2020 7:36 AM CDT [facility] Squamous Epithelial Cells UA 6-10(A) None Seen, 0-2 /HPF 02/20/2020 7:36 AM CDT [facility] Mucus UA 4+(A) None, 1+ /LPF 02/20/2020 7:36 AM T [facility] Amorphous Crystals Few Rare, Occasional, Few, Moderate, None /HPF 02/20/2020 7:36 AM CDT [facility] Urine URINE SPECIMEN OBTAINED BY CLEAN CATCH PROCEDURE / Unknown Collection / Unknown 02/20/2020 7:20 AM CDT 02/20/2020 7:20 AM CDT Narrative [facility] - 02/20/2020 7:36 AM CDT Mariama Batres MD LAB - URINALYSIS ORD ERABLES [address] [address], [facility] [phone] * US ABDOMEN LIMITED (08/05/2016 10:04 AM CABLE FERRY OPERATOR) Only the most recent of2 resultswithin the time period is included. Anatomical Region Laterality Modality Abdomen Other Impressions 08/05/2016 5:17 PM CABLE FERRY OPERATOR IMPRESSION: 1. No evidence of gallbladder polyps. No further imaging follow-up is required. 2. No discrete hepatic lesion or intrahepatic biliary dilation. Patent hepatic vasculature. 3. Unchanged mild dilatation of the pancreatic duct.. Dictated by Keshawn Torrez DO (resident). This report was approved by Keshawn Torrez on 08/05/2016 10:37 AM . I, Dr. CRYSTAL WORTHINGTON M.D. have personally reviewed and interpreted this examination/study. This report was electronically signed by CRYSTAL WORTHINGTON M.D. on 08/05/2016 5:17 PM . Narrative 08/05/2016 5:17 PM CABLE FERRY OPERATOR EXAMINATION: Limited abdominal sonogram HISTORY: 51-year-old female with previously seen gallbladder polyps. COMPARISON: Comparison is made with a study from 08/19/2015. FINDINGS: The liver is normal in echotexture, echogenicity, and surface contour. No discrete hepatic mass or intrahepatic biliary dilation is seen. Color Doppler evaluation demonstrates patency of the hepatic and portal veins. No gallstones or pericholecystic fluid is seen. Scattered echogenic foci within the gallbladder on the prior examination are not visualized. The gallbladder wall is normal in thickness, measuring 2 mm. Sonographic Golden's sign is negative. The common bile duct is mildly dilated, measuring 7 mm, unchanged. The right kidney measures 11.3 cm. Limited views of the right kidney reveal no evidence of nephrolithiasis or hydronephrosis. Small hyperechoic focus in the interpolar region of the right kidney likely represents a peripheral calcification. The spleen measures 10.2 cm in length. The visible pancreas is normal in echogenicity. The pancreatic duct measures 4 mm at the pancreatic body, unchanged. No ascites is present. Procedure Note Crystal Worthington MD - 10/22/2017 EXAMINATION: Limited abdominal sonogram HISTORY: 51-year-old female with previously seen gallbladder polyps. COMPARISON: Comparison is made with a study from 08/19/2015. FINDINGS: The liver is normal in echotexture, echogenicity, and surface contour. Nodiscrete hepatic mass or intrahepatic biliary dilation is seen. ColorDoppler evaluation demonstrates patency of the hepatic and portal veins. No gallstones or pericholecystic fluid is seen. Scattered echogenic fociwithin the gallbladder on the prior examination are not visualized. Thegallbladder wall is normal in thickness, measuring 2 mm. SonographicMurphy's sign is negative. The common bile duct is mildly dilated, measuring 7 mm, unchanged. The right kidney measures 11.3 cm. Limited views of the right kidneyreveal no evidence of nephrolithiasis or hydronephrosis. Small hyperechoicfocus in the interpolar region of the right kidney likely represents aperipheral calcification. The spleen measures 10.2 cm in length. The visible pancreas is normal inechogenicity. The pancreatic duct measures 4 mm at the pancreatic body,unchanged. No ascites is present. IMPRESSION IMPRESSION: 1. No evidence of gallbladder polyps. No further imaging follow-up isrequired. 2. No discrete hepatic lesion or intrahepatic biliary dilation. Patenthepatic vasculature. 3. Unchanged mild dilatation of the pancreatic duct.. Dictated by Keshawn Torrez DO (resident). This report was approved by Keshawn Torrez on 08/05/2016 10:37 AM . I, Dr. CRYSTAL WORTHINGTON M.D. have personally reviewed and interpreted thisexamination/study. This report was electronically signed by CRYSTAL WORTHINGTON M.D. on08/05/2016 5:17 PM . Hailey Puri MD US ORDERABLES * HCG BETA BLOOD QUANTITATIVE (06/11/2015 10:07 AM CABLE FERRY OPERATOR) Pathologist [facility] [place] Beta-hCG Total Quantitative <2 <5 mIU/mL [facility] Comment: HCG Numeric Result Interpretation: Non- Females: < 5 mIU/mL Post-Menopausal Females: < 7 mIU/mL Blood specimen (specimen) BLOOD SPECIMEN / Unknown 06/11/2015 10:07 AM CABLE FERRY OPERATOR 06/11/2015 10:13 AM CABLE FERRY OPERATOR Hailey Puri MD LAB - CHEMISTRY TIANNA HELMS [facility] Organization Address City/State/ZIP Co de Phone Number [facility] [address] [phone] * VITAMIN D 25-HYDROXY D2+D3 BY TANDEM MASS (05/30/2015 12:45 PM CABLE FERRY OPERATOR) Vitamin D, 25 Hydroxy Total 30 30 - 100 ng/mL [facility] ([facility]) Comment: Vitamin D Status 25-OH Vitamin D: Deficiency: <20 ng/mL Insufficiency: 20 - 29 ng/mL Optimal: > or = 30 ng/mL For 25-OH Vitamin D testing on patients on D2-supplementation and patients for whom quantitation of D2 and D3 fractions is required, the QuestAssureD(TM) 25-OH VIT D, (D2,D3), LC/MS/MS is recommended: order code 33327 (patients >2yrs). For more information on this test, go to: http://education.[facility]/faq/CCS234 (This link is being provided for informational/educational purposes only.) REPORT COMMENT: COPY TO DR. PURI FASTING:YES Test Performed at: [facility] [id number] [facility] [address] SAFIA RESTREPO DO,MPH 05/30/2015 12:4 5 PM CABLE FERRY OPERATOR 05/30/2015 12:46 PM CABLE FERRY OPERATOR Howie Fletcher MD LAB - CHEMISTRY ORDE RABGRECIA Performing Organization Address [facility]/ZIP Co de Phone Number [facility] ([facility]) * CULTURE URINE REFLEXED (05/30/2015 12:45 PM CABLE FERRY OPERATOR) Culture Urine Comprehensive NO CULTURE INDICATED [facility] ([facility]) Comment: Test Performed at: [facility] [employer] [id number] [place] [address] SAFIA RESTREPO DO,MPH 05/30/2015 12:4 5 PM CABLE FERRY OPERATOR 05/30/2015 12:46 PM CABLE FERRY OPERATOR Howie Fletcher MD LAB - MICROBIOLOGY O RDERABLES Performing Organization Address [facility] Co de Phone Number [facility] ([facility]) * (ABNORMAL) LIPID PROFILE W LDL/HDL RATIO (05/30/2015 12:45 PM CABLE FERRY OPERATOR) Cholesterol Total 206(H) 125 - 200 mg/dL [facility] ([facility]) HDL 47 > OR = 46 mg/dL [facility]) Triglycerides 85 <150 mg/dL [facility] ([facility]) LDL Calculated 142(H) <130 mg/dL (calc) [facility]) Comment: Desirable range <100 mg/dL for patients with CHD or diabetes and <70 mg/dL for diabetic patients with known heart disease. Chol/HDL Ratio 4.4 < OR = 5.0 (calc) [facility] ([facility]) LDl/HDL Ratio 3.0 (calc) [facility]) Comment: Below average Risk: <2.34 Average Risk: 2.35-4.12 Moderate Risk: 4.13-5.56 High Risk: >5.57 Non HDL Cholesterol 159 mg/dL (calc) [facility] ([facility]) Comment: Target for non-HDL cholesterol is 30 mg/dL higher than LDL cholesterol target. Test Performed at: [email or web address] [facility] [place] [address] SAFIA RESTREPO DO,MPH 05/30/2015 12:4 5 PM CABLE FERRY OPERATOR 05/30/2015 12:46 PM CABLE FERRY OPERATOR Howie Fletcher MD LAB - CHEMISTRY TIANNA HELMS Performing Organization Address [facility]/ZIP Co de Phone Number [facility] ([facility]) * CBC W/O DIFFERENTIAL (05/30/2015 12:45 PM CABLE FERRY OPERATOR) Only the most recent of2 resultswithin the time period is included. Pathologist [facility] [place] WBC 6.6 3.8 - 10.8 Thousand/u L [facility]) RBC 4.19 3.80 - 5.10 Million/uL [facility]) Hemoglobin 12.6 11.7 - 15.5 g/dL [facility] ([facility]) Hematocrit 38.6 35.0 - 45.0 % [facility]) MCV 92.1 80.0 - 100.0 fL [facility]) MCH 30.1 27.0 - 33.0 pg [facility]) MCHC 32.7 32.0 - 36.0 g/dL [facility]) RDW-CV 13.5 11.0 - 15.0 % [facility]) Platelet 322 140 - 400 Thousand/u L [facility]) Comment: Test Performed at: [email or web address] [facility] [place] [address] SAFIA RESTREPO DO,MPH Blood specimen (specimen) BLOOD SPECIMEN / Unknown 05/30/2015 12:45 PM CABLE FERRY OPERATOR 05/30/2015 12:46 PM CABLE FERRY OPERATOR Hailey Puri MD LAB - HEMATOLOGY HEATHER DICKEY Performing Organization Address [facility]/State/ZIP Co de Phone Number [facility] ([facility]) * VITAMIN B12 FOLATE PANEL (05/30/2015 12:45 PM CABLE FERRY OPERATOR) Pathologist [facility] [place] Vitamin B12 380 200 - 1,100 pg/mL [facility] ([facility]) Comment: Please Note: Although the reference range for vitamin B12 is 200-1100 pg/mL, it has been reported that between 5 and 10% of patients with values between 200 and 400 pg/mL may experience neuropsychiatric and hematologic abnormalities due to occult B12 deficiency; less than 1% of patients with values above 400 pg/mL will have symptoms. Folate >24.0 ng/mL [facility] ([facility]) Comment: Reference Range Low: <3.4 Borderline: 3.4-5.4 Normal: >5.4 Test Performed at: [id number] [id number] SAFIA RESTREPO DO,MPH 05/30/2015 12:4 5 PM CABLE FERRY OPERATOR 05/30/2015 12:46 PM CABLE FERRY OPERATOR Howie Fletcher MD LAB - CHEMISTRY ORDBrittany HELMS Performing Organization Address [facility]/ZIP Co de Phone Number [facility] ([facility]) * TISSUE TRANSGLUTAMINASE AB IGA (10/12/2014 3:35 PM CDT) Pathologist [facility] [place] TTG Antibody IgA 1 <4 U/mL [facility] ([facility]) Comment: Value Interpretation <4 U/mL: No Antibody Detected >or=4 U/mL: Antibody Detected REPORT COMMENT: FASTING:NO Test Performed at: [facility] VERNA MILLER MD Blood specimen (specimen) BLOOD SPECIMEN / Unknown 10/12/2014 3:35 PM CDT 10/12/2014 3:37 PM CDT Hailey Puri MD LAB - SEROLOGY ORDER [facility]) * IGA BLOOD (10/12/2014 3:35 PM CDT) Pathologist [facility] [place] IgA 198 81 - 463 mg/dL [facility] ([facility]) Comment: REPORT COMMENT: FASTING:NO Test Performed at: [facility] [address] [employer] [id number] SAFIA RESTREPO DO,MPH Blood specimen (specimen) BLOOD SPECIMEN / Unknown 10/12/2014 3:35 PM CDT 10/12/2014 3:37 PM CDT Hailey Puri MD LAB - CHEMISTRY ORDBrittany HELMS [facility] ([facility]) * HCG URINE QUALITATIVE - POCT (IP) [facility] (08/09/2014 7:27 AM CABLE FERRY OPERATOR) Only the most recent of2 resultswithin the time period is included. NEGATIVE [facility]) Comment:Supervisor Electric: DEBORAH (MANOHAR MOTT) VITA 08/09/2014 7:27 AM CABLE FERRY OPERATOR Hailey Puri MD LAB - POINT OF CARE ORDERABLES Performing Organization Address [facility] Co de Phone Number [facility] ([facility]) * (ABNORMAL) RAE W/REFLEX IFA PATTERN (06/30/2014 7:15 PM CABLE FERRY OPERATOR) RAE Positive(A ) None Detected [facility] Blood specimen (specimen) BLOOD SPECIMEN / Unknown 06/30/2014 7:15 PM CABLE FERRY OPERATOR 06/30/2014 8:03 PM CABLE FERRY OPERATOR Hailey Puri MD LAB - SEROLOGY ORDER JESUS Performing Organization Address [facility] Co de Phone Number [address] [phone] * RAE BLOOD SCREEN W/REFLEX TITER (06/30/2014 7:15 PM CABLE FERRY OPERATOR) RAE IFA Negative [facility]) Comment: Negative <1:80 Borderline 1:80 Positive >1:80 Blood specimen (specimen) BLOOD SPECIMEN / Unknown 06/30/2014 7:15 PM CABLE FERRY OPERATOR 07/02/2014 2:09 PM CABLE FERRY OPERATOR Narrative [facility] ([place]) - 07/04/2014 3:24 PM CABLE FERRY OPERATOR Performed at: [facility] [id number] Computer Peripheral Equipment Operator: Waldemar Ralph PhD, Phone: [phone] Samer Eriberto PEREZ LAB - CHEMISTRY TIANNA HELMS [facility] Organization Address City/State/ZIP Co de Phone Number [facility] ([place]) * XR ABDOMEN KUB PORTABLE (06/29/2014 11:53 PM CABLE FERRY OPERATOR) Anatomical Region Laterality Modality Other Impressions 06/30/2014 10:20 AM CABLE FERRY OPERATOR Impression: Nonobstructive bowel gas pattern. Retained stool throughout the colon. Report dictated by Alberto Flowers M.D. (resident). Dr. Haley Dasilva M.D. have personally reviewed and interpreted this examination/study. This report was electronically signed by Haley POOL M.D. on 06/30/2014 10:20 AM . Narrative 06/30/2014 10:20 AM CABLE FERRY OPERATOR Exam: Abdomen, single view Date: 06/29/2014 11:53 PM History: Abdominal pain and bloating status post ERCP Findings: Comparison is made to outside CT of 05/12/2014. A common bile duct stent has been placed. An intrauterine device is in place. The small bowel is nondilated. Stool and a small amount of gas is seen throughout the colon and rectum. No gross free intraperitoneal air is seen on this supine examination. No pathologic calcifications are identified. The lung bases are clear. The visible osseous structures are intact. Procedure Note Rowena Pool MD - 10/23/2017 Exam: Abdomen, single view Date: 06/29/2014 11:53 PM History: Abdominal pain and bloating status post ERCP Findings: Comparison is made to outside CT of 05/12/2014. A common bile duct stenthas been placed. An intrauterine device is in place. The small bowel is nondilated. Stool and a small amount of gas is seenthroughout the colon and rectum. No gross free intraperitoneal air is seenon this supine examination. No pathologic calcifications are identified.The lung bases are clear. The visible osseous structures are intact. IMPRESSION Impression: Nonobstructive bowel gas pattern. Retained stool throughout the colon. Report dictated by Alberto Flowers M.D. (resident). IDr. Haley M.D. have personally reviewed and interpreted thisexamination/study. This report was electronically signed by Haley POOL M.D. on06/30/2014 10:20 AM . Hailey Puri MD DIAGNOSTIC IMAGING O RDERABLES * HELICOBACTER PYLORI ANTIBODY IGG (06/29/2014 5:00 PM CABLE FERRY OPERATOR) Helicobacter pylori Antibody IgG <0.9 0.0 - 0.8 U/mL [facility]) Comment: Negative <0.9 Indeterminate 0.9 - 1.0 Positive >1.0 Blood specimen (specimen) BLOOD SPECIMEN / Unknown 06/29/2014 5:00 PM CABLE FERRY OPERATOR 06/29/2014 5:10 PM CABLE FERRY OPERATOR Narrative [facility]) - 07/02/2014 3:18 PM CABLE FERRY OPERATOR Performed at: [address] [place] [id number] Computer Peripheral Equipment Operator: Waldemar Ralph PhD, Phone: [phone] Hailey Puri MD LAB - CHEMISTRY TIANNA HELMS Performing Organization Address City/[facility]/ZIP Co de Phone Number [facility] ([facility]) * GLUCOSE ACCUCHECK (06/28/2014 4:04 PM CABLE FERRY OPERATOR) Only the most recent of2 resultswithin the time period is included. Pathologist [facility] [place] Glucose, Fingerstick 93 70-115mg/d L mg/dL [facility]) Comment:Supervisor Electric: AMPARO DOUGLAS 06/28/2014 4:04 PM CABLE FERRY OPERATOR Hailey Puri MD LAB - CHEMISTRY TIANNA HELMS Performing Organization Address City/[facility]/ZIP Co de Phone Number [facility]) * CYTOLOGY NON-EXPENSE ANALYST PANEL (STL) (06/28/2014 2:24 PM CABLE FERRY OPERATOR) Only the most recent of2 resultswithin the time period is included. Pathologist [facility] [place] Cytology Non-Plumbing Warehouse Helper Reference: [id number] Specimen: COMMON BILE DUCT, DISTAL Clinical History: Elargement of the head of the pancreas and dilated bile duct on imaging Gross Description: 25ml clear fluid with brush Preparation Method: 1 ThinPrep pap stained slide SPECIMEN ADEQUACY: SATISFACTORY FOR EVALUATION FINAL DIAGNOSIS: COMMON BILE DUCT, DISTGAL, CYTOLOGY: - ATYPICAL, FAVOR A BENIGN REACTIVE PROCESS MICROSCOPIC DESCRIPTION: This specimen contains many ductal epithelial cells with some groups of cells showing nuclear enlargement and nuclear crowding. Some of these groups show a degree of nuclear pleomorphism, and other single cells demonstrate hyperchromasia and irregular nuclear membranes. Most cells contain an abundant amount of cytoplasm which speaks in favor of a benign reactive process. Some neutrophils and other inflammatory cells are seen. An intradepartmental consultation is obtained. COMMENT(S): This case has been personally reviewed and interpreted by the attending (teaching) pathologist. Final Diagnosis performed by Lan Soto MD. Electronically signed 07/02/2014 [facility] ([facility]) Other (qualifier value) 06/28/2014 2:24 PM CABLE FERRY OPERATOR 06/28/2014 2:55 PM CABLE FERRY OPERATOR Narrative [facility] ([facility]) - 07/02/2014 9:42 AM CABLE FERRY OPERATOR Diagnosis->enlargement of the head of the pancreas and dilated bile duct on imaging Collection Date->06/28/14 Collection Time-> 2:10 PM Specimen A->Common Bile Duct brushings from the distal CBD Hailey Puri MD LAB - PATHOLOGY/CYTO LOGY ORDERABLES [facility] ([facility]) * EKG 12-LEAD (06/28/2014 12:00 AM CABLE FERRY OPERATOR) EKG [facility] Comment: Exam Date/Time: Jun 28 2014 19:39:21 Test Reason : Baseline for QTc Blood Pressure : / mmHG Vent. Rate : 082 BPM Atrial Rate : 082 BPM P-R Int : 168 ms QRS Dur : 092 ms QT Int : 422 ms P-R-T Axes : 066 068 075 degrees QTc Int : 493 ms Normal sinus rhythm Possible Inferior infarct , age undetermined Anterior infarct , age undetermined Abnormal ECG No previous ECGs available Confirmed by JAYME PEREZ, P ([id number]), senior technical editor Kwame Mccord ([id number]) on 07/03/2014 9:55:15 AM Referred By: REFERRING NO Confirmed By:Irina DELACRUZ MD 06/28/2014 Hailey Puri MD ECG ORDERABLES Performing Organization Address [facility]/State/ZIP Co de Phone Number [facility] * PT-INR SLU (06/23/2014 11:23 AM CABLE FERRY OPERATOR) INR 1.0 [facility] ([facility]) Comment: Reference Range 0.9-1.1 Moderate-intensity Warfarin Therapy 2.0-3.0 Higher-intensity Warfarin Therapy 3.0-4.0 PT 10.5 9.0 - 11.5 sec [facility] ([facility]) Comment: For more information on this test, go to: http://education.[facility]/faq/OZH924 REPORT COMMENT: IS PATIENT ON HEPARIN?->N Test Performed at: [facility] [address] [place] [address] SAFIA RESTREPO DO,MPH Blood specimen (specimen) BLOOD SPECIMEN / Unknown 06/23/2014 11:23 AM CABLE FERRY OPERATOR 06/23/2014 11:23 AM CABLE FERRY OPERATOR Narrative [facility] ([facility]) - 06/24/2014 6:00 AM CABLE FERRY OPERATOR Is patient on Heparin, Argatroban or Dabigatran?->N Hailey Puri MD LAB - COAGULATION OR DERABLES Performing Organization Address [facility] de Phone Number [facility] ([facility]) * IGG SUBCLASS 4 (06/23/2014 11:23 AM CABLE FERRY OPERATOR) IgG Subclass 4 18.4 4.0 - 86.0 mg/dL [facility] ([facility]) Comment: REPORT COMMENT: IS PATIENT ON HEPARIN?->N Test Performed at: [facility] [address] [place] [address] VERNA MILLER MD Blood specimen (specimen) BLOOD SPECIMEN / Unknown 06/23/2014 11:23 AM CABLE FERRY OPERATOR 06/23/2014 11:23 AM CABLE FERRY OPERATOR Hailey Puri MD LAB - CHEMISTRY TIANNA HELMS Performing Organization Address [facility] de Phone Number [facility] ([facility]) * VITAMIN A (06/23/2014 11:18 AM CABLE FERRY OPERATOR) Pathologist [facility] [place] Vitamin A 95 38 - 98 mcg/dL [facility] ([facility]) Comment: Test Performed at: [facility] [address] VERNA MILLER MD Blood specimen (specimen) BLOOD SPECIMEN / Unknown 06/23/2014 11:18 AM CABLE FERRY OPERATOR 06/23/2014 11:19 AM CABLE FERRY OPERATOR Hailey Puri MD LAB - CHEMISTRY TIANNA HELMS Performing Organization Address [facility] de Phone Number [facility] ([facility]) * VITAMIN E (06/23/2014 11:18 AM CABLE FERRY OPERATOR) [facility] Alpha-Tocopherol 15.7 5.7 - 19.9 mg/L [facility] ([facility]) Comment: Levels of alpha-tocopherol <5 mg/L are consistent with Vitamin E deficiency in adults. Beta-Gamma Tocopherol 0.8 <=4.3 mg/L [facility] ([facility]) Comment: Test Performed at: [facility] [address] [place] [address] VERNA MILLER MD Blood specimen (specimen) BLOOD SPECIMEN / Unknown 06/23/2014 11:18 AM CABLE FERRY OPERATOR 06/23/2014 11:19 AM CABLE FERRY OPERATOR Hailey Puri MD LAB - CHEMISTRY TIANNA HELMS Performing Organization Address [facility] de Phone Number [facility] ([facility]) * VITAMIN B12 (06/23/2014 11:18 AM CABLE FERRY OPERATOR) [facility] Vitamin B12 517 200 - 1,100 pg/mL [facility] ([facility]) Comment: Test Performed at: [facility] [address] [place] [address] SAFIA RESTREPO DO,MPH Blood specimen (specimen) BLOOD SPECIMEN / Unknown 06/23/2014 11:18 AM CABLE FERRY OPERATOR 06/23/2014 11:19 AM CABLE FERRY OPERATOR Sylviar Eriberto PEREZ LAB - CHEMISTRY TIANNA HELMS [facility] ([facility]) Care Teams Learning Developer Relationship Specialty Start Date End Date Tyrell Castillo DO [address] [place] [address] PCP - General Internal Medicine 03/15/24
--- OUTSIDE RECORDS SUMMARY | 2024-09-29 19:40 | XMS_ITS | Patient Health Summary ---
Author Organization [facility] Address [address] [place] [address] Care Team Providers Care Manufacturing Technologist Name Role Phone Tyrell Castillo DO Primary Care Provider [phone] Note from [facility],non-owned Affiliates and Associated Physician Practices is amultiple site organization consisting of ambulatory clinics and hospital sitesin [place], [place], [place] and [place]. This disclosure is being madepursuant to the Care Everywhere program and may not contain all information available regarding this patient. Last updated 18.[facility] Allergies * Latex(Swelling) -High Criticality Medications * [...] Comments Blood Pressure 144/86 09/19/2024 11:07 AM REORDERING CLERK Pulse 78 09/19/2024 11:07 AM REORDERING CLERK Temperature 36.1 C (97 F) 09/19/2024 11:07 AM REORDERING CLERK Respiratory Rate 14 09/15/2024 9:24 AM REORDERING CLERK Oxygen Saturation 98% 09/19/2024 11:07 AM REORDERING CLERK Inhaled Oxygen Concentration 99% 02/28/2020 1 2:36 PM CDT Weight 64 kg (141 lb) 09/19/2024 11:07 AM REORDERING CLERK Height 165.1 cm (5' 5 ) 09/19/2024 11:07 AM REORDERING CLERK Body Mass Index 23.46 09/19/2024 11:07 AM REORDERING CLERK Procedures * OH MSR PVR U&/BLADD CAPCTY US NON(Performed 09/19/2024) Performed for Urinary urgency * URINALYSIS AUTO - POINT OF CARE (AMB) SLU(Performed 09/19/2024) Performed for Urinary urgency * PATHOLOGY TISSUE(Performed 02/16/2024) Performed for Tubular adenoma * OH COLOREC CANC SCRN,COLONOSCPY HI RISK(Performed 02/16/2024) Performed for Tubular adenoma * ENDOSCOPY, COLON, SCREENING(Performed 02/16/2024) * US RETROPERITONEAL COMPLETE(Performed 12/22/2023) Performed for Caliectasis * OH MSR PVR U&/BLADD CAPCTY US NON(Performed 12/14/2023) Performed for Caliectasis * URINALYSIS AUTO - POINT OF CARE (AMB) SLU(Performed 12/14/2023) Performed for Caliectasis * OH FULL THICK GRFT NOS,EAR,LID <20SQCM(Performed 12/14/2023) Performed for Basal cell carcinoma (BCC) of left side of nose * OH CHMSRG MOHS MG TQ H/N/H/F/G 1ST STAG 5 BLOC(Performed 12/14/2023) Performed for Basal cell carcinoma (BCC) of left side of nose * OH TANGNTL BX SKIN SINGLE LES(Performed 12/08/2023) Performed [...] TISSUE(Performed 07/16/2021) Performed for Colonic thickening * OH SIGMOIDOSCOPY,DIAGNOSTIC(Performed 07/16/2021) Performed for Colonic thickening * [...] Performed for Chronic generalized abdominal pain * OH ED EGD FLEX TRANSORAL DX(Performed 02/28/2020) Performed [...] 06/28/2014) * GLUCOSE ACCUCHECK(Performed 06/28/2014) * CYTOLOGY NON-CAMP DIRECTOR PANEL (STL)(Performed 06/28/2014) * CYTOLOGY NON-CAMP DIRECTOR PANEL (STL)(Performed 06/28/2014) * GLUCOSE ACCUCHECK(Performed 06/28/2014) * HCG URINE QUALITATIVE - POCT (IP) SL(Performed 06/28/2014) * EKG 12-LEAD(Performed 06/28/2014) * IGG SUBCLASS 4(Performed 06/23/2014) * PT-INR [facility](Performed 06/23/2014) * COMPREHENSIVE METABOLIC PANEL(Performed 06/23/2014) * CBC W/O DIFFERENTIAL(Performed 06/23/2014) * VITAMIN A(Performed 06/23/2014) * VITAMIN E(Performed 06/23/2014) * VITAMIN B12(Performed 06/23/2014) Results * OH MSR PVR U&/BLADD CAPCTY US NON (09/19/2024 11:18 AM REORDERING CLERK) Narrative Noe Loza - 09/19/2024 11:18 AM REORDERING CLERK Noe Loza 09/19/2024 2:55 PM PVR 0 ML Gui Harvey PROCEDURE/MINOR SURG ICAL ORDERABLES * URINALYSIS AUTO - POINT OF CARE (AMB) [facility] (09/19/2024 11:17 AM REORDERING CLERK) Only the most recent of2 resultswithin the time period is included. Glucose UA - [facility] [address] Bilirubin UA POCT - [facility] [address] Ketones UA POCT - [facility] [address] Specific Helen UA 1.[address] [facility] [address] Blood Urine POCT - [facility] [address] pH UA 6.0 [facility] [address] Protein UA - [facility] [address] Urobilinogen UA 0.2 [facility] [address] Nitrite UA - [facility] [address] WBC UA - [facility] [address] Urine URINE / Unknown 09/19/2024 1 1:17 AM REORDERING CLERK Gui Harvey LAB - POINT OF CARE ORDERABLES [facility] [address], [place] [address], [facility] [phone] * PATHOLOGY TISSUE (02/16/2024 2:25 PM CDT) Only the most recent of4 resultswithin the time period is included. Case Report Surgical Pathology Report Case: [id number] Authorizing Provider: Taty Toussaint MD Collected: 02/16/2024 02:25 PM Ordering Location: [facility] ENDOSCOPY Received: 02/16/2024 03:16 PM Pathologist: Lashonda Sow MD Specimen: Polyp Rectosigmoid, Rectosigmoid colon polyp x1 02/17/2024 11:35 AM [facility] Final Diagnosis Large intestine, rectosigmoid colon polyp x1, biopsy (A): - Tubular adenoma 02/17/2024 11:35 AM [facility] Microscopic Description and Comment Microscopic examination substantiates the final diagnosis. 02/17/2024 11:35 AM [facility] Clinical History The patient is a 58-year-old woman who presents for high risk colon cancer surveillance (personal history of nonadvanced adenoma). Operative procedure/findings: Colonoscopy - 12 mm rectosigmoid colon polyp, resected and retrieved. 02/17/2024 11:35 AM [facility] Gross Description The requisition and specimen(s) are identified with the patient's name, Velia Corcoran. Received in formalin, specimen A , is a reynolds-pink segment of polypoid mucosal covered soft tissue measuring 0.7 x 0.4 x 0.3 cm. The resection margin is inked blue, the specimen is bisected, and entirely submitted in A1. [facility] 02/17/2024 11:35 AM [facility] Pathologist Location at [facility] 02/17/2024 11:35 AM [facility] Disclaimer The performance characteristics of all immunohistochemical and indirect immunofluorescence stains (if any) cited in this report were determined by the Histopathology Laboratory of [facility]. Some of these tests were developed by [...] attending (teaching) pathologist. 02/17/2024 11:35 AM CDT [facility] Embedded Images 02/17/2024 11:35 AM CDT [facility] Biopsy, NOS POLYP / Unknown 02/16/2024 2 :25 PM CDT 02/16/2024 3:16 PM CDT Taty Toussaint MD LAB - PATHOLOGY/C YTOLOGY ORDERABLES [facility] [address] [id number], [facility] [phone] * Endoscopy, Colon, Screening (02/16/2024 1:26 PM CDT) Report Endoscopy POC Endoscopy Department Report _ Patient Name: Velia Corcoran Procedure Date: 02/16/2024 1:26 PM Date of : 1965 Classification: Outpatient Gender: Female Ethnicity: Not or Race: White _ Providers: Taty Toussaint ([facility])MD Referring MD: Tyrell Castillo (Referring ) Procedure: [...] bowel preparation was evaluated using the BBPS ([place] Bowel Preparation Scale) with scores of: Right [...] non-reyez portions. Procedure Code(s): --- Professional --- 90331, Colonoscopy, flexible; with removal of tumor(s), polyp(s), or other lesion(s) by snare technique Diagnosis Code(s): --- Professional --- Z86.010, Personal history of colonic polyps D12.7, Benign neoplasm of rectosigmoid junction K64.1, Second degree hemorrhoids K64.4, Residual hemorrhoidal skin tags CPT copyright 2021 [employer]. All rights reserved. The codes documented in this report are preliminary and upon library consultant review may be revised to meet current compliance requirements. Taty Toussaint MD ([place]) 02/16/2024 3:00:29 PM Note Initiated On: 02/16/2024 1:26 PM Number of Addenda: [id number] [place] [address] PROVATION 02/16/2024 1:26 PM CDT Taty Toussaint MD GI PROCEDURE [facility] Organization Address City/State/ZIP Co de Phone Number [facility] PROVATION * US RETROPERITONEAL COMPLETE (12/22/2023 1:41 [...] calyectasis has resolved. > Interpreting Provider: Haley oPol MD on 12/22/2023 2:03 PM Gui Harvey US ORDERABLES * OH MSR PVR U&/BLADD CAPCTY US NON (12/14/2023 12:52 PM CDT) Narrative Ronel Rubio MA - 12/14/2023 12:52 PM CDT Ronel Rubio ONELIA 12/17/2023 12:54 PM PVR=38ML Gui Harvey PROCEDURE/MINOR SURG ICAL ORDERABLES * OH CHMSRG MOHS MG TQ H/N/H/F/G 1ST STAG 5 BLOC, OH FULL THICK GRFT NOS,EAR,LID <20SQCM (12/14/2023 10:42 AM CDT) Narrative Shant Green MD - 12/14/2023 10:42 AM CDT Shant Green MD 12/14/2023 12:40 PM Mohs Micrographic Surgery Operative Note Procedure: Mohs micrographic surgery Date of service: 12/14/2023 Location: left nasal ala Preop diagnosis: Basal cell carcinoma Postop diagnosis: Basal cell carcinoma Mohs AUC score: 8 Number of stages: 1 Preop size: 0.6x0.6 cm Postop size: 0.8x0.7 cm Depth of final defect: adipose Previous dermpath accession #: [id number] Repair type: full-thickness skin graft Mohs accession #: [id number] Surgeon and Pathologist: Shant Grene MD served as both surgeon and pathologist. No other physician was involved in the cancer removal or pathology interpretation. Assistants: N/A Indications for Mohs Surgery Removal of the patient's tumor is complicated by the following clinical features: Clinical area critical for tissue conservation (Area H: central face, eyelids, eyebrows, nose, lips, chin, ear, periauricular, sabianism, genitalia, hands, feet, ankles, nail units and [...] confirmed by the patient. All components of [place] Protocol/PAUSE Rule completed. STAGE I: The patient [...] Inflammation obscuring possible tumor presence: Not Present [facility] Mohs CLIA # [id number] Mohs pathology laboratory aide: Ade Rowell MD REPAIR: Full thickness skin graft Primary Surgeon: Shant Green MD Diabetes Educator: ASHLEY Vieyra Final Wound Size: 0.8x0.8 cm [...] report. I entered the information in our [employer] DocFlowsheet with the information provided by Dr. Green on his handwritten, paper format, surgical worksheet, which was then used to initiate the create of this note. Dr. Green then reviewed and edited the note as needed to complete the note. Ama Henley LPN I have reviewed the note, edited it as necessary and performed the entire procedure. Shant Green MD Manager Advertising 12/14/2023 Shant Green MD PROCEDURE/MINOR SURG ICAL ORDERABLES * OH TANGNTL BX SKIN SINGLE LES (12/08/2023 9:46 [...] AM CDT) Case Report Dermatopathology Report Case: [id number] Authorizing Provider: Shant Green MD Collected: 12/08/2023 12:00 AM Ordering Location: [facility] - Received: 12/08/2023 01:56 [...] characteristic determined by the Dermatopathology Laboratory at [facility], directed by Dr. Heidi Ly. These tests need not be, and therefore are not, approved by the [place] Food and Drug Administration. The tests are used for clinical purposes. Billing Codes Specimen Charges Stain Charges 95135 1 11:41 AM CDT DERMATOPATHOLOGY LABORATORY Embedded Images 11:41 AM CDT DERMATOPATHOLOGY LABORATORY Pathology/Cytolog y TISSUE SPECIMEN FROM SKIN / Unknown 12/08/2023 12/08/2023 1:56 PM CDT Shant Green MD LAB - PATHOLOGY/CYTO LOGY ORDERABLES DERMATOPATHOLOGY LABORATORY [facility] - Department of Dermatology [address], [address] [phone] * (ABNORMAL) COMPREHENSIVE METABOLIC PANEL (11/29/2023 2:21 PM CDT) Only the most recent of9 resultswithin the time period is included. BUN 14 7 - 26 mg/dL 11/29/2023 3:[address] [facility] Creatinine 0.90 0.56 - 0.96 mg/dL 11/29/2023 3:[address] [facility] Sodium 141 136 - 145 mmol/L 11/29/2023 3:[address] [facility] Potassium 4.2 3.5 - 4.5 mmol/L 11/29/2023 3:[address] [facility] Chloride 105 98 - 107 mmol/L 11/29/2023 3:[address] [facility] CO2 28 22 - 29 mmol/L 11/29/2023 3:[address] [facility] Glucose 97 70 - 115 mg/dL 11/29/2023 3:[address] [facility] Calcium 10.4(H) 8.4 - 10.2 mg/dL 11/29/2023 3:[address] [facility] Protein Total 7.7 6.0 - 8.3 g/dL 11/29/2023 3:[address] [facility] Albumin 4.3 3.4 - 5.0 g/dL 11/29/2023 3:[address] [facility] Bilirubin Total 0.3 0.2 - 1.2 mg/dL 11/29/2023 3:[address] [facility] Alkaline Phosphatase 86 40 - 150 U/L 11/29/2023 3:[address] [facility] ALT 10 5 - 55 U/L 11/29/2023 3:[address] [facility] AST 15 5 - 34 U/L 11/29/2023 3:07 PM CDT [facility] Anion Gap 8 6 - 16 11/29/2023 3:07 PM CDT [facility] BUN/Creatinine Ratio 16 7 - 23 11/29/2023 3:07 PM CDT [facility] LABORATORY [facility] Osmolality Calculated 292 275 - 295 mOsm/kg 11/29/2023 3:07 PM T [facility] Albumin/Globulin Ratio 1.3 1.1 - 2.3 11/29/2023 3:07 PM T [facility] LABORATORY [facility] eGFR by CKD-EPI 74(L) >=90 mL/min/1.7 3 m2 11/29/2023 3:07 PM CDT [facility] Blood BLOOD SPECIMEN / Unknown Lab Venipuncture / Unknown 11/29/2023 2:21 PM CDT 11/29/2023 2:39 PM CDT Clyde Colunga MD LAB - CHEMISTRY TIANNA HELMS [facility] Organization Address City/State/ZIP Co de Phone Number [address] [address], [facility] [phone] * MRI ABDOMEN W MRCP WWO CONT W3D (08/12/2023 12:03 PM REORDERING CLERK) Only the most recent of2 resultswithin the time period is included. Anatomical Region Laterality Modality Abdomen Magnetic Resonan ce 08/12/2023 1:12 PM REORDERING CLERK Impressions 08/13/2023 11:44 AM REORDERING CLERK Impression: 1.Mild central intrahepatic and proximal common [...] 02/23/2020. Report dictated by Radhames Flores DO (president and ceo). I, Priyanka Barcenas MD have personally reviewed and interpreted this examination/study. > Interpreting Provider: Priyanka Barcenas MD on 08/13/2023 11:44 AM Narrative 08/13/2023 11:44 AM REORDERING CLERK PROCEDURE: MRI ABDOMEN W MRCP WWO CONT W3D, DATE/TIME OF EXAM: 08/12/2023 12:04 PM, LOCATION [facility] INDICATION: R13.10: Dysphagia, unspecified type K86.89: Pancreatic [...] W3D, DATE/TIME OF EXAM:08/12/2023 12:04 PM, LOCATION [facility] INDICATION: R13.10: Dysphagia, unspecified type K86.89: Pancreatic [...] analyzed on a dedicated 3-D workstation for [facility] portion of the exam. Findings: Lower Chest: [...] from02/23/2020. Report dictated by Radhames Flores DO (president and ceo). I, Priyanka Barcenas MD have personally reviewed and interpreted this examination/study. > Interpreting Provider: Priyanka Barcenas MD on 411:44 AM Reji Arguelles MD MR ORDERABLES * CREATININE - POCT INTERFACED (08/12/2023 11:18 AM REORDERING CLERK) Creatinine POCT 0.74 0.30 - 1.30 mg/dL 08/12/2023 11:20 AM REORDERING CLERK [facility] eGFR >90 >90 mL/min/1.7 3 m2 08/12/2023 11:20 AM REORDERING CLERK [facility] Blood BLOOD SPECIMEN / Unknown 08/12/2023 11:18 AM REORDERING CLERK 08/12/2023 11:20 AM REORDERING CLERK Reji Arguelles MD LAB - POINT OF CARE ORDERABLES Performing Organization Address City/State/[facility] Co de Phone Number [address] [address], [facility] [phone] * FL ESOPHAGRAM (08/12/2023 10:55 AM REORDERING CLERK) Anatomical Region Laterality Modality Chest Radiographic Rowan ging 08/12/2023 11:2 7 AM REORDERING CLERK Impressions 08/13/2023 9:41 AM REORDERING CLERK IMPRESSION: Normal esophagram. Report dictated by Kianna Tovar MD I, Bryce Kurtz DO have personally reviewed and interpreted this examination/study. > Interpreting Provider: Bryce Kurtz DO on 08/13/2023 9:41 AM Narrative 08/13/2023 9:41 AM REORDERING CLERK PROCEDURE: FL ESOPHAGRAM DATE/TIME OF EXAM: 08/12/2023 [...] level of the aortic notch. Procedure Note rByce Kurtz DO - 08/13/2023 PROCEDURE: FL ESOPHAGRAM [...] ES * ENDOSCOPY, PROCTOSIGMOID (07/16/2021 7:48 AM REORDERING CLERK) Report Endoscopy POC Endoscopy Department Report _ [...] non-reyez portions. Procedure Code(s): --- Professional --- 13416, Sigmoidoscopy, flexible; with biopsy, single or multiple Diagnosis Code(s): --- Professional --- K64.8, Other hemorrhoids K62.1, Rectal polyp R19.7, Diarrhea, unspecified CPT copyright 2019 [employer]. All rights reserved. The codes documented in this report are preliminary and upon library consultant review may be revised to meet current compliance requirements. Taty Oneal MD 07/16/2021 8:54:16 AM Note Initiated On: 07/16/2021 7:48 AM Number of Addenda: [address] [address] [facility] PROVATION 07/16/2021 7:48 AM REORDERING CLERK Taty Toussaint MD GI PROCEDURE ORDE ANALIA [facility] Organization Address City/State/ZIP Co de Phone Number [facility] PROVATION * (ABNORMAL) URINALYSIS W/MICROSCOPIC REFLEX TO CULTURE (06/23/2021 10:58 AM REORDERING CLERK) Only the most recent of2 resultswithin the time period is included. Color UA Yellow Straw, Yellow 06/23/2021 11:28 AM [facility] Clarity UA Clear Clear 06/23/2021 11:28 AM [facility] Specific Helen UA 1.010 1.005 - 1.030 06/23/2021 11:28 AM [facility] pH UA 7.0 5.0 - 8.0 pH 06/23/2021 11:28 AM [facility] Protein UA Negative Negative 06/23/2021 11:28 AM [facility] Glucose UA Negative Negative 06/23/2021 11:28 AM [facility] Ketone UA Negative Negative 06/23/2021 11:28 AM [facility] Bilirubin UA Negative Negative 06/23/2021 11:28 AM [facility] Blood UA Negative Negative 06/23/2021 11:28 AM [facility] Nitrite UA Negative Negative 06/23/2021 11:28 AM [facility] Leukocyte Esterase Negative Negative 06/23/2021 11:28 AM [facility] Urobilinogen UA Negative Negative mg/dL 06/23/2021 11:28 AM [facility] RBC UA 0-2 None Seen, 0-2, 3-5 /HPF 06/23/2021 11:28 AM [facility] WBC UA None Seen None Seen, 0-5 /HPF 06/23/2021 11:28 AM [facility] Squamous Epithelial Cells UA 0-2 None Seen, 0-2, 3-5 /HPF 06/23/2021 11:28 AM [facility] Mucus UA 1+ /LPF 06/23/2021 11:28 AM [facility] Amorphous Crystals Rare(A) None /HPF 06/23/2021 11:28 AM [facility] Urine URINE SPECIMEN OBTAINED BY CLEAN CATCH PROCEDURE / Unknown Collection / Unknown 06/23/2021 10:58 AM REORDERING CLERK 06/23/2021 11:17 AM [facility] - 06/23/2021 11:28 AM [facility] Culture Not Indicated Howie Fletcher MD LAB - URINALYSIS ORD ERABLES [facility] [address] [place] [address], [facility] [phone] * TSH (05/03/2021 12:49 PM CDT) Only the most recent of2 resultswithin the time period is included. [facility] TSH 1.13 0.40 - 4.50 mIU/L [facility] Comment: REPORT COMMENT: FASTING:YES COLLECTION KIT GIVEN TO PATIENT. PATIENT ADVISED TO RETURN. Test Performed at: [facility] [address] [place] [address] SAFIA RESTREPO DO,MPH 05/03/2021 12:4 9 PM CDT 05/03/2021 12:51 PM CDT Stephanie Cormier MD LAB - CHEMISTRY OR DERABLES Performing Organization Address [facility] Co de Phone Number [facility] [address] [place] [phone] * LAB MISC TEST (05/13/2020) Blood BLOOD SPECIMEN / Unknown Olga Adams MD LAB SEND OUT * FAT QUALITATIVE FECES RANDOM (05/03/2020 8:00 AM CDT) [facility] Fat Fecal Qualitative Normal Normal [facility] Comment: REPORT COMMENT: HAD WBC ON HOLD ALL OTHER TESTS ADDED BY PAPER REQ. FASTING:NO Test Performed at: [facility] [address] [place] [address] ZEINA DAS MD,PHD 05/03/2020 8:00 AM CDT 05/04/2020 4:15 AM CDT Olga Adams MD LAB - BODY FLUID ORD ERABLES Performing Organization Address [facility]/ZIP Co de Phone Number [facility] [id number] [place] [address] * GIARDIA CRYPTOSPORIDIUM ANTIGEN PANEL (05/03/2020 8:00 AM CDT) [facility]FA [facility] Comment: CRYPTOSPORIDIUM AG, DFA Micro Number: [id number] Test Status: Final Specimen Source: STOOL Specimen Quality: Adequate Cryptosporidium: Not Detected Reference Range: Not Detected NOTE: Due to intermittent shedding, one negative sample does not necessarily rule out the presence of a parasitic infection. Test Performed at: [facility] [address] ANNIE FELDMAN MD EIA [facility] Comment: GIARDIA AG, EIA, STOOL Micro Number: [id number] Test Status: Final Specimen Source: STOOL Specimen Quality: Adequate Giardia Result 1: Not Detected Reference Range: Not Detected NOTE: Due to intermittent shedding, one negative sample does not necessarily rule out the presence of a parasitic infection. Test Performed at: [facility] [employer] [facility] [address] ANNIE FELDMAN MD 05/03/2020 8:00 AM CDT 05/03/2020 11:11 PM CDT Olga Adams MD LAB - MICROBIOLOGY O RDERABLES [address] [address] * O+P PANEL (05/03/2020 8:00 AM CDT) [facility] (1) [facility] Comment: OVA AND PARASITES, CONC AND PERM SMEAR Micro Number: [id number] Test Status: Final Specimen Source: STOOL Specimen Quality: Adequate CONCENTRATION 1: No ova or parasites seen TRICHROME 1: No ova or parasites seen Routine Ova and Parasite exam may not detect some parasites that occasionally cause diarrheal illness. Test code(s) 80243 (Cryptosporidium Ag., DFA) and/or 18544 (Cyclospora and Isospora Exam) may be ordered to detect these parasites. One negative sample does not necessarily rule out the presence of a parasitic infection. For additional information, please refer to https://education.9tong.com/faq/LFN722 (This link is being provided for informational/ educational purposes only.) REPORT COMMENT: HAD WBC ON HOLD ALL OTHER TESTS ADDED BY PAPER REQ. FASTING:NO Test Performed at: [facility] [address] ANNIE FELDMAN MD 05/03/2020 8:00 AM CDT 05/03/2020 11:11 PM CDT Olga Adams MD LAB - MICROBIOLOGY O CODY Performing Organization Address [facility] [place] [address] * CULTURE STOOL PANEL (05/03/2020 8:00 AM CDT) [facility] Comment: SHIGA TOXINS, EIA W/RFL TO E.COLI O157 CULTURE Micro Number: [id number] Test Status: Final Specimen Source: STOOL Specimen Quality: Adequate Shiga Toxin: Not Detected Reference Range: Not Detected Culture [facility] Comment: CAMPYLOBACTER, CULTURE Micro Number: [id number] Test Status: Final Specimen Source: STOOL Specimen Quality: Adequate Result: No enteric Campylobacter isolated Culture [facility] Comment: SALMONELLA AND SHIGELLA, CULTURE Micro Number: [id number] Test Status: Final Specimen Source: STOOL Specimen Quality: Adequate Result: No Salmonella or Shigella isolated Test Performed at: [facility] [address] ANNIE FELDMAN MD 05/03/2020 8:00 AM CDT 05/03/2020 11:11 PM CDT Olga Adams MD LAB - MICROBIOLOGY O CODY Performing Organization Address [facility] [place] [address] * EGD (02/28/2020 1:39 PM CDT) Report [...] entire procedure. Procedure Code(s): --- Professional --- 54409, Esophagogastroduode noscopy, flexible, transoral; with biopsy, single or multiple Diagnosis Code(s): --- Professional --- K31.89, Other diseases of stomach and duodenum R10.9, Unspecified abdominal pain R19.7, Diarrhea, unspecified CPT copyright 2019 [employer]. All rights reserved. The codes documented in this report are preliminary and upon library consultant review may be revised to meet current compliance requirements. ___ Taty Oneal MD 02/28/2020 1:48:03 PM Note Initiated On: 02/28/2020 1:39 PM Number of Addenda: 0 [facility] [address] [place] [address] [facility] 02/28/2020 1:39 PM CDT Taty Toussaint MD GI PROCEDURE TIANNA HELMS [facility] Organization Address City/State/ZIP Co de Phone Number [facility] * POTASSIUM WHOLE BLD (02/28/2020 12:36 PM CDT) Potassium Whole Blood 4.3 3.5 - 5.5 mmol/L 02/28/2020 12:46 PM CDT [facility] Blood WHOLE BLOOD SPECIMEN / Unknown Venipuncture / Unknown 02/28/2020 12:36 PM CDT 02/28/2020 12:44 PM CDT Taty Toussaint MD LAB - CHEMISTRY O RDERABLES [address] [address], [facility] [phone] * CT ABDOMEN PELVIS W CONTRAST (02/23/2020 [...] fluid, nonspecific. Dictated by Josee Whittaker MD (president and ceo). A note was sent to the ED via the [employer] reporting system regarding bowel findings on 02/24/2020 [...] fluid, nonspecific. Dictated by Josee Whittaker MD (president and ceo). A note was sent to the ED via the [employer] reporting system regardingbowel findings on 02/24/2020 at [...] Not detected, Invalid 02/24/2020 3:[address] [facility] Microbiology SPECIMEN FROM NASOPHARYNGEAL STRUCTURE / Unknown Collection / Unknown 02/23/2020 8:07 PM CDT 02/23/2020 8:[address] [facility] - 02/24/2020 3:05 AM CDT This nucleic acid amplification assay performance was validated by [facility]. This test has been [...] the authorization is terminated or revoked sooner. Ttay Joseph MD LAB - MICROBIOLOGY O RDERABLES [facility] [address] [place] [address], [facility] [phone] * HIV-1 HIV-2 ANTIGEN/ANTIBODY (02/23/2020 8:03 PM CDT) HIV Antigen/Antibod y 1 & 2 Non-reacti ve Non-react starla 02/23/2020 9:07 PM CDT [facility] Comment:Neither HIV-1 p24 An tigen nor HIV-1/HIV-2 Antibodies are detected. Blood BLOOD SPECIMEN / Unknown Venipuncture / Unknown 02/23/2020 8:03 PM CDT 02/23/2020 8:25 PM CDT Jimmy Rice MD LAB - HEMATOLOGY ORD NOBLE Performing Organization Address [facility] Co de Phone Number [address] [address], [facility] [phone] * HEPATITIS C AB SCREEN RFLX NAAT QUANT (02/23/2020 8:03 PM CDT) Hepatitis C Antibody Non-react starla Non-reac tive 02/23/2020 9:12 PM CDT [facility] Comment:Hepatitis C Antibody screen indicates no [...] - CHEMISTRY TIANNA HELMS Performing Organization Address City/[facility]/ZIP Co de Phone Number [address] [address], [place] [phone] * (ABNORMAL) C-REACTIVE PROTEIN (02/23/2020 7:19 PM CDT) [facility] C-Reactive Protein 3.8(H) <=0.5 mg/dL 02/23/2020 8:51 PM CDT [facility] Blood BLOOD SPECIMEN / Unknown Venipuncture / Unknown 02/23/2020 7:19 PM CDT 02/23/2020 8:21 PM CDT Taty Joseph MD LAB - CHEMISTRY ORDE RABGRECIA [address] [phone] * ERYTHROCYTE SEDIMENTATION RATE (02/23/2020 7:19 PM CDT) [facility] Erythrocyte Sedimentation Rate Westergren 21 0 - 30 MM/HR 02/23/2020 8:46 PM CDT [facility] Blood BLOOD SPECIMEN / Unknown Venipuncture / Unknown 02/23/2020 7:19 PM CDT 02/23/2020 8:21 PM CDT Taty Joseph MD LAB - HEMATOLOGY ORD ERABLES [address] [phone] * (ABNORMAL) CBC W AUTO DIFFERENTIAL (02/23/2020 7:19 PM CDT) Only the most recent of10 resultswithin the time period is included. Pathologist [facility] WBC 7.4 3.5 - 10.5 10 3/uL 02/23/2020 8:27 PM CDT [facility] RBC 4.27 3.90 - 5.00 10 6/uL 02/23/2020 8:27 PM CDT [facility] Hemoglobin 12.7 12.0 - 15.5 g/dL 02/23/2020 8:27 PM CDT [facility] Hematocrit 38.9 35.0 - 45.0 % 02/23/2020 8:[address] [facility] MCV 91.1 81.0 - 97.0 fL 02/23/2020 8:[address] [facility] MCH 29.7 28.0 - 34.0 pg 02/23/2020 8:[address] [facility] MCHC 32.6 32.0 - 36.0 g/dL 02/23/2020 8:[address] [facility] Platelet Count 211 150 - 400 10 3/uL 02/23/2020 8:[address] [facility] RDW-SD 42.5 36.0 - 50.0 fL 02/23/2020 8:[address] [facility] RDW-CV 12.7 11.2 - 14.8 % 02/23/2020 8:[address] [facility] MPV 9.7 9.3 - 12.8 fL 02/23/2020 8:[address] [facility] nRBC Absolute 0.00 0 10 3/uL 02/23/2020 8:[address] [facility] nRBC Auto 0.0 0 /100 WBC 02/23/2020 8:[address] [facility] Neutrophils % 73.0(H) 35.0 - 70.0 % 02/23/2020 8:[address] [facility] Lymphocytes % 14.8(L) 19.7 - 55.1 % 02/23/2020 8:[address] [facility] Monocytes % 11.3 3.0 - 15.0 % 02/23/2020 8:[address] [facility] Eosinophils % 0.3 0.0 - 6.0 % 02/23/2020 8:[address] [facility] Basophil % 0.3 0.0 - 1.5 % 02/23/2020 8:[address] [facility] Neutrophils Absolute 5.4 1.6 - 7.0 10 3/uL 02/23/2020 8:[address] [facility] Lymphocyte Absolute 1.1 0.8 - 2.9 10 3/uL 02/23/2020 8:[address] [facility] Monocytes Absolute 0.84(H) 0.14 - 0.66 10 3/uL 02/23/2020 8:[address] [facility] Eosinophils Absolute 0.02 0.00 - 0.45 10 3/uL 02/23/2020 8:27 PM CDT [facility] Basophils Absolute 0.02 0.00 - 0.06 10 3/uL 02/23/2020 8:27 PM CDT [facility] Immature Granulocytes % 0.3 0.0 - 1.0 % 02/23/2020 8:27 PM CDT [facility] Blood BLOOD SPECIMEN / Unknown Venipuncture / Unknown 02/23/2020 7:19 PM CDT 02/23/2020 8:21 PM CDT Taty Joseph MD LAB - HEMATOLOGY ORD NOBLE Performing Organization Address [facility]/[place] [address], [facility] [phone] * LIPASE BLOOD (02/23/2020 7:19 PM CDT) Only the most recent of3 resultswithin the time period is included. Lipase 27 8 - 78 Units/L 02/23/2020 8:51 PM CDT [facility] Blood BLOOD SPECIMEN / Unknown Venipuncture / Unknown 02/23/2020 7:19 PM CDT 02/23/2020 8:21 PM CDT Taty Joseph MD LAB - CHEMISTRY TIANNA HELMS Performing Organization Address [facility] Co de Phone Number [address] [address], [facility] [phone] * LACTIC ACID BLOOD (02/23/2020 7:19 PM CDT) Lactic Acid-Stat 1.0 0.5 - 2.0 mmol/L 02/23/2020 8:43 PM CDT [facility] Blood BLOOD SPECIMEN / Unknown Venipuncture / Unknown 02/23/2020 7:19 PM CDT 02/23/2020 8:21 PM CDT Taty Joseph MD LAB - CHEMISTRY TIANNA HELMS [address] [address], [facility] [phone] * AMYLASE BLOOD (02/23/2020 7:19 PM CDT) Pathologist [facility] Amylase 42 25 - 125 Units/L 02/23/2020 8:51 PM T [facility] Blood BLOOD SPECIMEN / Unknown Venipuncture / Unknown 02/23/2020 7:19 PM CDT 02/23/2020 8:21 PM CDT Taty Joseph MD LAB - CHEMISTRY TIANNA HELMS [address] [address], [facility] [phone] * (ABNORMAL) URINALYSIS W/MICROSCOPIC NO CULTURE (02/20/2020 7:20 AM CDT) Pathologist [facility] Color UA Yellow Straw, Yellow, Colorless 02/20/2020 7:[address] [facility] Clarity UA Cloudy(A) Clear, Slt Cloudy 02/20/2020 7:[address] [facility] Specific Helen UA 1.023 1.005 - 1.030 02/20/2020 7:[address] [facility] pH UA 5.0 5.0 - 8.0 pH 02/20/2020 7:[address] [facility] Protein UA Negative Negative mg/dL 02/20/2020 7:[address] [facility] Glucose UA Negative Negative mg/dL 02/20/2020 7:[address] [facility] Ketone UA Trace(A) Negative mg/dL 02/20/2020 7:[address] [facility] Bilirubin UA Negative Negative mg/dL 02/20/2020 7:[address] [facility] Blood UA 2+(A) Negative 02/20/2020 7:[address] [facility] Nitrite UA Negative Negative 02/20/2020 7:[address] [facility] Leukocyte Esterase Trace(A) Negative 02/20/2020 7:[address] [facility] Urobilinogen UA Negative Negative mg/dL 02/20/2020 7:36 AM CDT [facility] RBC UA 3-5 None Seen, 0-2, 3-5 /HPF 02/20/2020 7:36 AM CDT [facility] WBC UA 11-20(A) None Seen, 0-5 /HPF 02/20/2020 7:36 AM CDT [facility] Bacteria UA 3+(A) None, Trace /HPF 02/20/2020 7:36 AM CDT [facility] Squamous Epithelial Cells UA 6-10(A) None Seen, 0-2 /HPF 02/20/2020 7:36 AM CDT [facility] Mucus UA 4+(A) None, 1+ /LPF 02/20/2020 7:36 AM T [facility] Amorphous Crystals Few Rare, Occasional, Few, Moderate, None /HPF 02/20/2020 7:36 AM CDT [facility] Urine URINE SPECIMEN OBTAINED BY CLEAN CATCH PROCEDURE / Unknown Collection / Unknown 02/20/2020 7:20 AM CDT 02/20/2020 7:20 AM CDT Narrative [facility] - 02/20/2020 7:36 AM CDT Mariama Batres MD LAB - URINALYSIS ORD ERABLES [address] [address], [facility] [phone] * US ABDOMEN LIMITED (08/05/2016 10:04 AM REORDERING CLERK) Only the most recent of2 resultswithin the time period is included. Anatomical Region Laterality Modality Abdomen Other Impressions 08/05/2016 5:17 PM REORDERING CLERK IMPRESSION: 1. No evidence of gallbladder polyps. [...] 5:17 PM . Narrative 08/05/2016 5:17 PM REORDERING CLERK EXAMINATION: Limited abdominal sonogram HISTORY: 51-year-old female [...] HCG BETA BLOOD QUANTITATIVE (06/11/2015 10:07 AM REORDERING CLERK) Pathologist [facility] Beta-hCG Total Quantitative <2 <5 mIU/mL [facility] Comment: HCG Numeric Result Interpretation: Non- Females: < 5 mIU/mL Post-Menopausal Females: < 7 mIU/mL Blood specimen (specimen) BLOOD SPECIMEN / Unknown 06/11/2015 10:07 AM REORDERING CLERK 06/11/2015 10:13 AM REORDERING CLERK Hailey Puri MD LAB - CHEMISTRY TIANNA HELMS [facility] Organization Address City/State/ZIP Co de Phone Number [facility] [address] [phone] * VITAMIN D 25-HYDROXY D2+D3 BY TANDEM MASS (05/30/2015 12:45 PM REORDERING CLERK) Vitamin D, 25 Hydroxy Total 30 30 - 100 ng/mL [facility] ([facility]) Comment: Vitamin D Status 25-OH Vitamin D: Deficiency: <20 ng/mL Insufficiency: 20 - 29 ng/mL Optimal: > or = 30 ng/mL For 25-OH Vitamin D testing on patients on D2-supplementation and patients for whom quantitation of D2 and D3 fractions is required, the QuestAssureD(TM) 25-OH VIT D, (D2,D3), LC/MS/MS is recommended: order code 80673 (patients >2yrs). For more information on this test, go to: http://education.9tong.com/faq/WBM438 (This link is being provided for informational/educational purposes only.) REPORT COMMENT: COPY TO DR. PURI FASTING:YES Test Performed at: [facility] [id number] [facility] [place] [address] SAFIA RESTREPO DO,MPH 05/30/2015 12:4 5 PM REORDERING CLERK 05/30/2015 12:46 PM REORDERING CLERK Howie Fletcher MD LAB - CHEMISTRY ORDE RABGRECIA Performing Organization Address [facility]/ZIP Co de Phone Number [facility] ([facility]) * CULTURE URINE REFLEXED (05/30/2015 12:45 PM REORDERING CLERK) Culture Urine Comprehensive NO CULTURE INDICATED [facility] ([facility]) Comment: Test Performed at: [employer] [id number] [place] [address] SAFIA RESTREPO DO,MPH 05/30/2015 12:4 5 PM REORDERING CLERK 05/30/2015 12:46 PM REORDERING CLERK Howie Fletcher MD LAB - MICROBIOLOGY O RDERABLES Performing Organization Address [facility] Co de Phone Number [facility] ([facility]) * (ABNORMAL) LIPID PROFILE W LDL/HDL RATIO (05/30/2015 12:45 PM REORDERING CLERK) Cholesterol Total 206(H) 125 - 200 mg/dL [facility] ([facility] HDL 47 > OR = 46 mg/dL [facility] ([facility]) Triglycerides 85 <150 mg/dL [facility] ([facility]) LDL Calculated 142(H) <130 mg/dL (calc) [facility] ([facility]) Comment: Desirable range <100 mg/dL for patients with CHD or diabetes and <70 mg/dL for diabetic patients with known heart disease. Chol/HDL Ratio 4.4 < OR = 5.0 (calc) [facility] ([facility]) LDl/HDL Ratio 3.0 (calc) [facility] ([facility]) Comment: Below average Risk: <2.34 Average Risk: 2.35-4.12 Moderate Risk: 4.13-5.56 High Risk: >5.57 Non HDL Cholesterol 159 mg/dL (calc) [facility] ([facility]) Comment: Target for non-HDL cholesterol is 30 mg/dL higher than LDL cholesterol target. Test Performed at: [employer] [facility] [place] [address] SAFIA RESTREPO DO,MPH 05/30/2015 12:4 5 PM REORDERING CLERK 05/30/2015 12:46 PM REORDERING CLERK Howie Fletcher MD LAB - CHEMISTRY TIANNA HELMS Performing Organization Address [facility]/ZIP Co de Phone Number [facility] ([facility]) * CBC W/O DIFFERENTIAL (05/30/2015 12:45 PM REORDERING CLERK) Only the most recent of2 resultswithin the time period is included. Pathologist [facility] WBC 6.6 3.8 - 10.8 Thousand/u L [facility] ([facility]) RBC 4.19 3.80 - 5.10 Million/uL [facility] ([facility]) Hemoglobin 12.6 11.7 - 15.5 g/dL [facility] ([facility]) Hematocrit 38.6 35.0 - 45.0 % [facility] ([facility]) MCV 92.1 80.0 - 100.0 fL [facility] ([facility]) MCH 30.1 27.0 - 33.0 pg [facility] ([facility]) MCHC 32.7 32.0 - 36.0 g/dL [facility] ([facility]) RDW-CV 13.5 11.0 - 15.0 % [facility] ([facility]) Platelet 322 140 - 400 Thousand/u L [facility] ([facility]) Comment: Test Performed at: [employer] [facility] [place] [address] SAFIA RESTREPO DO,MPH Blood specimen (specimen) BLOOD SPECIMEN / Unknown 05/30/2015 12:45 PM REORDERING CLERK 05/30/2015 12:46 PM REORDERING CLERK Hailey Puri MD LAB - HEMATOLOGY HEATHER DICKEY Performing Organization Address [facility]/State/ZIP Co de Phone Number [facility] ([facility]) * VITAMIN B12 FOLATE PANEL (05/30/2015 12:45 PM REORDERING CLERK) Pathologist [facility] Vitamin B12 380 200 - 1,100 pg/mL [facility] ([facility]) Comment: Please Note: Although the reference range for vitamin B12 is 200-1100 pg/mL, it has been reported that between 5 and 10% of patients with values between 200 and 400 pg/mL may experience neuropsychiatric and hematologic abnormalities due to occult B12 deficiency; less than 1% of patients with values above 400 pg/mL will have symptoms. Folate >24.0 ng/mL [facility] ([facility]) Comment: Reference Range Low: <3.4 Borderline: 3.4-5.4 Normal: >5.4 Test Performed at: [id number] [id number] SAFIA RESTREPO DO,MPH 05/30/2015 12:4 5 PM REORDERING CLERK 05/30/2015 12:46 PM REORDERING CLERK Howie Fletcher MD LAB - CHEMISTRY ORDBrittany HELMS Performing Organization Address [facility]/ZIP Co de Phone Number [facility] ([facility]) * TISSUE TRANSGLUTAMINASE AB IGA (10/12/2014 3:35 PM CDT) Pathologist [facility] TTG Antibody IgA 1 <4 U/mL [facility] ([facility]) Comment: Value Interpretation <4 U/mL: No Antibody Detected >or=4 U/mL: Antibody Detected REPORT COMMENT: FASTING:NO Test Performed at: [employer] VERNA MILLER MD Blood specimen (specimen) BLOOD SPECIMEN / Unknown 10/12/2014 3:35 PM CDT 10/12/2014 3:37 PM CDT Hailey Puri MD LAB - SEROLOGY ORDER [facility] ([facility]) * IGA BLOOD (10/12/2014 3:35 PM CDT) Pathologist [facility] IgA 198 81 - 463 mg/dL [facility] ([facility]) Comment: REPORT COMMENT: FASTING:NO Test Performed at: [facility] [id number] [address] SAFIA RESTREPO DO,MPH Blood specimen (specimen) BLOOD SPECIMEN / Unknown 10/12/2014 3:35 PM CDT 10/12/2014 3:37 PM CDT Hailey Puri MD LAB - CHEMISTRY ORDBrittany HELMS [facility] ([facility]) * HCG URINE QUALITATIVE - POCT (IP) [facility] (08/09/2014 7:27 AM REORDERING CLERK) Only the most recent of2 resultswithin the time period is included. NEGATIVE [facility]) Comment:Rag Washer: DEBORAH (MANOHAR MOTT) VITA 08/09/2014 7:27 AM REORDERING CLERK Hailey Puri MD LAB - POINT OF CARE ORDERABLES Performing Organization Address [facility] Co de Phone Number [facility] ([facility]) * (ABNORMAL) RAE W/REFLEX IFA PATTERN (06/30/2014 7:15 PM REORDERING CLERK) RAE Positive(A ) None Detected [facility] Blood specimen (specimen) BLOOD SPECIMEN / Unknown 06/30/2014 7:15 PM REORDERING CLERK 06/30/2014 8:03 PM REORDERING CLERK Hailey Puri MD LAB - SEROLOGY ORDER JESUS Performing Organization Address [facility] Co de Phone Number [address] [phone] * RAE BLOOD SCREEN W/REFLEX TITER (06/30/2014 7:15 PM REORDERING CLERK) RAE IFA Negative [facility] ([facility]ER) Comment: Negative <1:80 Borderline 1:80 Positive >1:80 Blood specimen (specimen) BLOOD SPECIMEN / Unknown 06/30/2014 7:15 PM REORDERING CLERK 07/02/2014 2:09 PM REORDERING CLERK Narrative [facility] ([facility]) - 07/04/2014 3:24 PM REORDERING CLERK Performed at: [facility] [id number] Glass Block Installer: Waldemar Ralph PhD, Phone: [phone] Samer Eriberto PEREZ LAB - CHEMISTRY TIANNA HELMS [facility] Organization Address City/State/ZIP Co de Phone Number [facility] ([place]) * XR ABDOMEN KUB PORTABLE (06/29/2014 11:53 PM REORDERING CLERK) Anatomical Region Laterality Modality Other Impressions 06/30/2014 10:20 AM REORDERING CLERK Impression: Nonobstructive bowel gas pattern. Retained stool throughout the colon. Report dictated by Alberto Flowers M.D. (resident). Dr. Haley Dasilva M.D. have personally reviewed and interpreted this examination/study. This report was electronically signed by Haley POOL M.D. on 06/30/2014 10:20 AM . Narrative 06/30/2014 10:20 AM REORDERING CLERK Exam: Abdomen, single view Date: 06/29/2014 11:53 [...] HELICOBACTER PYLORI ANTIBODY IGG (06/29/2014 5:00 PM REORDERING CLERK) Helicobacter pylori Antibody IgG <0.9 0.0 - 0.8 U/mL [facility]) Comment: Negative <0.9 Indeterminate 0.9 - 1.0 Positive >1.0 Blood specimen (specimen) BLOOD SPECIMEN / Unknown 06/29/2014 5:00 PM REORDERING CLERK 06/29/2014 5:10 PM REORDERING CLERK Narrative [facility]) - 07/02/2014 3:18 PM REORDERING CLERK Performed at: [address] [place] [id number] Glass Block Installer: Waldemar Ralph PhD, Phone: [phone] Hailey Puri MD LAB - CHEMISTRY TIANNA HELMS Performing Organization Address City/[facility]/ZIP Co de Phone Number [facility] ([facility]) * GLUCOSE ACCUCHECK (06/28/2014 4:04 PM REORDERING CLERK) Only the most recent of2 resultswithin the time period is included. Pathologist [facility] Glucose, Fingerstick 93 70-115mg/d L mg/dL [facility]) Comment:Rag Washer: AMPARO DOUGLAS 06/28/2014 4:04 PM REORDERING CLERK Hailey Puri MD LAB - CHEMISTRY TIANNA HELMS Performing Organization Address City/[facility]/ZIP Co de Phone Number [facility]) * CYTOLOGY NON-CAMP DIRECTOR PANEL (STL) (06/28/2014 2:24 PM REORDERING CLERK) Only the most recent of2 resultswithin the time period is included. Pathologist [facility] Cytology Non-Frame Bander Reference: [id number] Specimen: COMMON BILE DUCT, DISTAL Clinical History: [...] by Lan Soto MD. Electronically signed 07/02/2014 [facility] ([facility]) Other (qualifier value) 06/28/2014 2:24 PM REORDERING CLERK 06/28/2014 2:55 PM REORDERING CLERK Narrative [facility] ([facility]) - 07/02/2014 9:42 AM REORDERING CLERK Diagnosis->enlargement of the head of the pancreas and dilated bile duct on imaging Collection Date->06/28/14 Collection Time-> 2:10 PM Specimen A->Common Bile Duct brushings from the distal CBD Hailey Puri MD LAB - PATHOLOGY/CYTO LOGY ORDERABLES [facility] ([facility]) * EKG 12-LEAD (06/28/2014 12:00 AM REORDERING CLERK) EKG [facility] Comment: Exam Date/Time: Jun 28 2014 [...] available Confirmed by JAYME PEREZ, P ([id number]), primer expeditor and drier Kwame Mccord ([id number]) on 07/03/2014 9:55:15 AM Referred By: REFERRING NO Confirmed By:Irina DELACRUZ MD 06/28/2014 Hailey Puri MD ECG ORDERABLES Performing Organization Address [facility]/State/ZIP Co de Phone Number [facility] * PT-INR SLU (06/23/2014 11:23 AM REORDERING CLERK) INR 1.0 [facility] ([facility]) Comment: Reference Range 0.9-1.1 Moderate-intensity Warfarin Therapy 2.0-3.0 Higher-intensity Warfarin Therapy 3.0-4.0 PT 10.5 9.0 - 11.5 sec [facility] ([facility]) Comment: For more information on this test, go to: http://education.9tong.com/faq/QIS980 REPORT COMMENT: IS PATIENT ON HEPARIN?->N Test Performed at: [employer] [facility] [id number] [place] [address] SAFIA RESTREPO DO,MPH Blood specimen (specimen) BLOOD SPECIMEN / Unknown 06/23/2014 11:23 AM REORDERING CLERK 06/23/2014 11:23 AM REORDERING CLERK Narrative [facility] ([facility]) - 06/24/2014 6:00 AM REORDERING CLERK Is patient on Heparin, Argatroban or Dabigatran?->N Hailey Puri MD LAB - COAGULATION OR DERABLES Performing Organization Address [facility] de Phone Number [facility] ([facility]) * IGG SUBCLASS 4 (06/23/2014 11:23 AM REORDERING CLERK) IgG Subclass 4 18.4 4.0 - 86.0 mg/dL [facility] ([facility]) Comment: REPORT COMMENT: IS PATIENT ON HEPARIN?->N Test Performed at: [facility] [id number] [place] [address] VERNA MILLER MD Blood specimen (specimen) BLOOD SPECIMEN / Unknown 06/23/2014 11:23 AM REORDERING CLERK 06/23/2014 11:23 AM REORDERING CLERK Hailey Puri MD LAB - CHEMISTRY TIANNA HELMS Performing Organization Address [facility] de Phone Number [facility] ([facility]) * VITAMIN A (06/23/2014 11:18 AM REORDERING CLERK) Pathologist [facility] Vitamin A 95 38 - 98 mcg/dL [facility] ([facility]) Comment: Test Performed at: [facility] [address] VENRA MILLER MD Blood specimen (specimen) BLOOD SPECIMEN / Unknown 06/23/2014 11:18 AM REORDERING CLERK 06/23/2014 11:19 AM REORDERING CLERK Hailey Puri MD LAB - CHEMISTRY TIANNA HELMS Performing Organization Address [facility] de Phone Number [facility] * VITAMIN E (06/23/2014 11:18 AM REORDERING CLERK) [facility] Alpha-Tocopherol 15.7 5.7 - 19.9 mg/L [facility]) Comment: Levels of alpha-tocopherol <5 mg/L are consistent with Vitamin E deficiency in adults. Beta-Gamma Tocopherol 0.8 <=4.3 mg/L [facility]) Comment: Test Performed at: [employer] [address] [place] [address] VERNA MILLER MD Blood specimen (specimen) BLOOD SPECIMEN / Unknown 06/23/2014 11:18 AM REORDERING CLERK 06/23/2014 11:19 AM REORDERING CLERK Hailey Puri MD LAB - CHEMISTRY TIANNA HELMS Performing Organization Address [facility] de Phone Number [facility]) * VITAMIN B12 (06/23/2014 11:18 AM REORDERING CLERK) [facility] Vitamin B12 517 200 - 1,100 pg/mL [facility]) Comment: Test Performed at: [facility] [address] [place] [address] SAFIA RESTREPO DO,MPH Blood specimen (specimen) BLOOD SPECIMEN / Unknown 06/23/2014 11:18 AM REORDERING CLERK 06/23/2014 11:19 AM REORDERING CLERK Sylviar Eriberto PEREZ LAB - CHEMISTRY TIANNA HELMS [facility]) Care Teams Manufacturing Technologist Relationship Specialty Start Date End Date Tyrell Castillo DO [address] [place] [address] PCP - General Internal Medicine 03/15/24
--- OUTSIDE RECORDS SUMMARY | 2024-09-29 19:40 | XMS_ITS | Clinical Summary ---
Author Organization [facility] Address [address] [place] [address] Care Team Providers Care Chute Feeder Name Role Phone Tyrell Castillo DO Primary Care Provider [phone] Source Comments [facility],non-owned Affiliates and Associated Physician Practices is amultiple site organization consisting of ambulatory clinics and hospital sitesin [place], [place], [place] and [place]. This disclosure is being madepursuant to the Care Everywhere program and may not contain all information available regarding this patient. Last updated 18.[facility] Allergies Active Allergy Reactions Criticality Noted Date [...] Encounters Date Type Department Care Team Description 09/19/2024 11:00 AM SILK SCREEN PRINTING RACKER Office Visit [facility] Urology [address] [place] [address] Gui Lora PA Urinary urgency (Primary Dx) 09/19/2024 Travel 09/15/2024 9:30 AM SILK SCREEN PRINTING RACKER Office Visit [facility] [address] [facility] [facility] [address], [facility] [place] [address] Ruben Reyes MD Varicose veins of bilateral [...] Comments Blood Pressure 144/86 09/19/2024 11:07 AM SILK SCREEN PRINTING RACKER Pulse 78 09/19/2024 11:07 AM SILK SCREEN PRINTING RACKER Temperature 36.1 C (97 F) 09/19/2024 11:07 AM SILK SCREEN PRINTING RACKER Respiratory Rate 14 09/15/2024 9:24 AM SILK SCREEN PRINTING RACKER Oxygen Saturation 98% 09/19/2024 11:07 AM SILK SCREEN PRINTING RACKER Inhaled Oxygen Concentration 99% 02/28/2020 1 2:36 PM CDT Weight 64 kg (141 lb) 09/19/2024 11:07 AM SILK SCREEN PRINTING RACKER Height 165.1 cm (5' 5 ) 09/19/2024 11:07 AM SILK SCREEN PRINTING RACKER Body Mass Index 23.46 09/19/2024 11:07 AM SILK SCREEN PRINTING RACKER Plan of Treatment Upcoming Encounters Date Type Department Care Team (Late st Contact Info) Description 10/18/2024 9:00 AM CDT Appointment [facility] Health Vascular Services [address] [place] [address] Ruben Reyes MD [address] [place] [address] LEVEL [place] [address] 10/18/2024 12:15 PM CDT Appointment [facility] - Ultrasound [address] [place] [address] Ruben Reyes MD [address] [place] [address] LEVEL [place] [address] 12/04/2024 12:30 PM CDT Office Visit [facility] - GI [address] [place] [address] [phone] 12/20/2024 10:00 AM CDT Office Visit [facility] - Dermatology [address] [place] [address] [phone] Shant Green MD [address] [place] [address] 3 Dept [place] [address] Health Maintenance Due Date Last Done Comments [...] years 1-dose series) 2024 COVID-19 VACCINE ( - season) 2024 02/27/2022, 08/22/2021, 11/26/2020, Additional history [...] Medication Management General On track( 9:31 AM SILK SCREEN PRINTING RACKER) No Samia Rae, RN Note: Expected end date: Ongoing Interventions: Take all medications as prescribed Let your doctor know right away about any changes in your medications Make sure to request a refill of your medication at least one week prior to your last dose Safety General On track( 9:31 AM SILK SCREEN PRINTING RACKER) No Fara Cisneros, RN Note: Expected end date: ongoing Interventions: Wear glasses/hearing aid Keep personal items within easy reach Use some light at night in your room Procedures Procedure Name Priority Date/Time Associated Diagnosis Comments [place] MSR PVR U&/BLADD CAPCTY US NON Routine 09/19/2024 11:18 AM SILK SCREEN PRINTING RACKER Urinary urgency URINALYSIS AUTO - POINT OF CARE (AMB) [facility] Routine 09/19/2024 11:17 AM SILK SCREEN PRINTING RACKER Urinary urgency ENDOSCOPY, COLON, SCREENING Routine 02/16/2024 1:26 PM CDT HEPATITIS C AB SCREEN RFLX NAAT QUANT STAT 02/23/2020 8:03 PM CDT HIV-1 HIV-2 ANTIGEN/ANTIBODY STAT 02/23/2020 8:03 PM CDT from Last 3 Months or Most Recently Relevant to Health Maintenance Results * [place] MSR PVR U&/BLADD CAPCTY US NON (09/19/2024 11:18 AM SILK SCREEN PRINTING RACKER) Narrative Noe Loza - 09/19/2024 11:18 AM SILK SCREEN PRINTING RACKER Noe Loza 09/19/2024 2:55 PM PVR 0 ML Gui Harvey PROCEDURE/MINOR SURG ICAL ORDERABLES * URINALYSIS AUTO - POINT OF CARE (AMB) [facility] (09/19/2024 11:17 AM SILK SCREEN PRINTING RACKER) Glucose UA - [facility] [address] Bilirubin UA POCT - [facility] [address] Ketones UA POCT - [facility] [address] Specific [place] UA 1.[address] [facility] [address] Blood Urine POCT - [facility] [address] pH UA 6.0 [facility] [address] Protein UA - [facility] [address] Urobilinogen UA 0.2 [facility] [address] Nitrite UA - [facility] [address] WBC UA - [facility] [address] Urine URINE / Unknown 09/19/2024 1 1:17 AM SILK SCREEN PRINTING RACKER Gui Harvey LAB - POINT OF CARE ORDERABLES [facility] [address] [facility] [address] [facility] [place] [address], [facility] [phone] * Endoscopy, Colon, Screening (02/16/2024 1:26 PM CDT) Report Endoscopy POC Endoscopy Department Report _ Patient Name: Velia Corcoran Procedure Date: 02/16/2024 1:26 PM Date of : 1965 Classification: Outpatient Gender: Female Ethnicity: Not or Race: White _ Providers: [facility]MD Referring MD: Tyrell Castillo (Referring MD) Procedure: [...] bowel preparation was evaluated using the BBPS ([place] Bowel Preparation Scale) with scores of: Right [...] non-reyez portions. Procedure Code(s): --- Professional --- 19165, Colonoscopy, flexible; with removal of tumor(s), polyp(s), or other lesion(s) by snare technique Diagnosis Code(s): --- Professional --- Z86.010, Personal history of colonic polyps D12.7, Benign neoplasm of rectosigmoid junction K64.1, Second degree hemorrhoids K64.4, Residual hemorrhoidal skin tags CPT copyright 2021 [employer] [place] [employer]. All rights reserved. The codes documented in this report are preliminary and upon shank carrier review may be revised to meet current compliance requirements. Taty Toussaint MD ([place]) 02/16/2024 3:00:29 PM Note Initiated On: 02/16/2024 1:26 PM Number of Addenda: [id number] [place] [address] PROVATION 02/16/2024 1:26 PM CDT Taty Toussaint MD GI PROCEDURE TIANNA HELMS [facility] PROVATION * HIV-1 HIV-2 ANTIGEN/ANTIBODY (02/23/2020 8:03 PM CDT) HIV Antigen/Antibod y 1 & 2 Non-reacti ve Non-react starla 02/23/2020 9:07 PM CDT [facility] Comment:Neither HIV-1 p24 An tigen nor HIV-1/HIV-2 Antibodies are detected. Blood BLOOD SPECIMEN / Unknown Venipuncture / Unknown 02/23/2020 8:03 PM CDT 02/23/2020 8:25 PM CDT Jimmy Rice MD LAB - HEMATOLOGY HEATHER DICKEY Performing Organization Address [facility] [place] [address], [facility] [phone] * HEPATITIS C AB SCREEN RFLX NAAT QUANT (02/23/2020 8:03 PM CDT) Hepatitis C Antibody Non-react starla Non-reac tive 02/23/2020 9:12 PM CDT [facility] Comment:Hepatitis C Antibody screen indicates no [...] - CHEMISTRY TIANNA HELMS Performing Organization Address City/[facility]/ZIP Co de Phone Number [address] [address], [facility] [phone] from Last 3 Months or Most Recently Relevant to Health Maintenance Care Teams Chute Feeder Relationship Specialty Start Date End Date Tyrell Castillo DO [address] [place] [address] PCP - General Internal Medicine 03/15/24
--- OUTSIDE RECORDS SUMMARY | 2024-09-29 19:40 | XMS_ITS | Encounter Summary ---
Author Organization [facility] Address [address] [place] [address] Care Team Providers Care Saw Operator Name Role Phone Tyrell Castillo DO Primary Care Provider [phone] Tyrell Castillo DO Primary Care Provider [phone] Encounter Details Date Type Department Care Team (Late st Contact Info) Description 12/07/2023 Telephone [facility] Dermatology [address] [place] [address], [facility] [place] [address] Shant Green MD [address] [place] [address] 3 [place] [address] Social History Tobacco Use Types [...] Info) Description 10/18/2024 9:00 AM CDT Appointment [facility] Health Vascular Services [address] [place] [address] Ruben Reyes MD [address] [place] [address] FIRST LEVEL [place] [address] 10/18/2024 12:15 PM CDT Appointment [facility] Imaging Services - Ultrasound [address] [place] [address] Ruben Reyes MD [address] [place] [address] FIRST L[place]EL [place] [address] 12/04/2024 12:30 PM CDT Office Visit [facility] GI [address] [place] [address] [phone] 12/20/2024 10:00 AM CDT Office Visit [facility] - Dermatology [address] [place] [address] [phone] Shant Green MD [address] [place] [address] 3 [place] [phone] documented as of this encounter Goals Goal Patient Goal Type Associated Problems Recent Progress Patient-Stated? Author Medication Management General On track( 9:31 AM RESEARCH TEST ENGINE OPERATOR) No Samia Rae, RENITA Note: Expected end date: Ongoing Interventions: Take all medications as prescribed Let your doctor know right away about any changes in your medications Make sure to request a refill of your medication at least one week prior to your last dose Safety General On track( 9:31 AM RESEARCH TEST ENGINE OPERATOR) Fara Ascencio, RENITA Note: Expected end date: ongoing Interventions: Wear glasses/hearing aid Keep personal items within easy reach Use some light at night in your room documented as of this encounter Visit Diagnoses Not on filedocumented in this encounter Care Teams Saw Operator Relationship Specialty Start Date End Date Tyrell Castillo DO PCP - General Internal Medicine 05/10/23 03/14/24 Tyrell Castillo DO [address] [place] [address] PCP - General Internal Medicine 03/15/24 documented as of this encounter
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
--- OUTSIDE RECORDS SUMMARY | 2024-09-29 19:40 | XMS_ITS | Referral Summary ---
Author Organization [facility] Address [address] [place] [place] [address] Care Team Providers Care Financial Sales Representative Name Role Phone Tyrell Castillo DO Primary Care Provider [phone] Source Comments [facility],non-owned Affiliates and Associated Physician Practices is amultiple site organization consisting of ambulatory clinics and hospital sitesin [place], [place], [place] and [place]. This disclosure is being madepursuant to the Care Everywhere program and may not contain all information available regarding this patient. Last updated 18.[facility] Encounters Date Type Department Care Team Description 09/19/2024 Travel 09/19/2024 11:00 AM INFORMATION AND DATA ARCHITECT ANALYST Office Visit [facility] - Urology [address] [place] [phone] Gui Lora PA Urinary urgency (Primary Dx) 09/15/2024 Travel 09/15/2024 9:30 AM INFORMATION AND DATA ARCHITECT ANALYST Office Visit [facility] [address] [facility], [place] [phone] Ruben Reyes MD Varicose veins of bilateral [...] Comments Blood Pressure 144/86 09/19/2024 11:07 AM INFORMATION AND DATA ARCHITECT ANALYST Pulse 78 09/19/2024 11:07 AM INFORMATION AND DATA ARCHITECT ANALYST Temperature 36.1 C (97 F) 09/19/2024 11:07 AM INFORMATION AND DATA ARCHITECT ANALYST Respiratory Rate 14 09/15/2024 9:24 AM INFORMATION AND DATA ARCHITECT ANALYST Oxygen Saturation 98% 09/19/2024 11:07 AM INFORMATION AND DATA ARCHITECT ANALYST Inhaled Oxygen Concentration 99% 02/28/2020 1 2:36 PM CDT Weight 64 kg (141 lb) 09/19/2024 11:07 AM INFORMATION AND DATA ARCHITECT ANALYST Height 165.1 cm (5' 5 ) 09/19/2024 11:07 AM INFORMATION AND DATA ARCHITECT ANALYST Body Mass Index 23.46 09/19/2024 11:07 AM INFORMATION AND DATA ARCHITECT ANALYST Functional Status Functional Status Response Date of [...] Info) Description 10/18/2024 9:00 AM CDT Appointment [facility] Vascular Services [address] [place] [id number] Ruben Reyes MD [address] [place] [address] [place] [address] 10/18/2024 12:15 PM CDT Appointment [facility] Health Imaging Services - Ultrasound [address] [place] [address] Ruben Reyes MD [address] [place] [address] FIRST [place] [address] 12/04/2024 12:30 PM CDT Office Visit [facility] - GI [address] [place] [phone] 12/20/2024 10:00 AM CDT Office Visit [facility] - Dermatology [address] [place] [phone] Shant Green MD [address] [place] [address] 3 [place] [phone] Goals Goal Patient Goal Type Associated Problems Recent Progress Patient-Stated? Author Medication Management General On track( 025 9:31 AM INFORMATION AND DATA ARCHITECT ANALYST) No Samia Rae, RN Note: Expected end date: Ongoing Interventions: Take all medications as prescribed Let your doctor know right away about any changes in your medications Make sure to request a refill of your medication at least one week prior to your last dose Safety General On track( 025 9:31 AM INFORMATION AND DATA ARCHITECT ANALYST) No Fara Cisneros, RENITA Note: Expected end date: ongoing Interventions: Wear glasses/hearing aid Keep personal items within easy reach Use some light at night in your room Procedures Procedure Name Priority Date/Time Associated Diagnosis Comments TN MSR PVR U&/BLADD CAPCTY US NON Routine 09/19/2024 11:18 AM INFORMATION AND DATA ARCHITECT ANALYST Urinary urgency URINALYSIS AUTO - POINT OF CARE (AMB) [facility] Routine 09/19/2024 11:17 AM INFORMATION AND DATA ARCHITECT ANALYST Urinary urgency ENDOSCOPY, COLON, SCREENING Routine 02/16/2024 1:26 PM CDT HEPATITIS C AB SCREEN RFLX NAAT QUANT STAT 02/23/2020 8:03 PM CDT HIV-1 HIV-2 ANTIGEN/ANTIBODY STAT 02/23/2020 8:03 PM CDT from Last 3 Months or Most Recently Relevant to Health Maintenance Results * TN MSR PVR U&/BLADD CAPCTY US NON (09/19/2024 11:18 AM INFORMATION AND DATA ARCHITECT ANALYST) Narrative Noe Loza - 09/19/2024 11:18 AM INFORMATION AND DATA ARCHITECT ANALYST Noe Loza 09/19/2024 2:55 PM PVR 0 ML Gui Harvey PROCEDURE/MINOR SURG ICAL ORDERABLES * URINALYSIS AUTO - POINT OF CARE (AMB) [facility] (09/19/2024 11:17 AM INFORMATION AND DATA ARCHITECT ANALYST) Glucose UA - [facility] [address] Bilirubin UA POCT - [facility] [address] Ketones UA POCT - [facility] [address] Specific Lind UA 1.[address] [facility] [address] Blood Urine POCT - [facility] [address] pH UA 6.0 [facility] [address] Protein UA - [facility] [address] Urobilinogen UA 0.2 [facility] [address] Nitrite UA - [facility] [address] WBC UA - [facility] [address] Urine URINE / Unknown 09/19/2024 1 1:17 AM INFORMATION AND DATA ARCHITECT ANALYST Gui Harvey LAB - POINT OF CARE ORDERABLES [facility] [address] [place] [address], [facility] [phone] * Endoscopy, Colon, Screening (02/16/2024 1:26 PM CDT) Report Endoscopy POC Endoscopy Department Report _ Patient Name: Velia Corcoran Procedure Date: 02/16/2024 1:26 PM Date of : 1965 Classification: Outpatient Gender: Female Ethnicity: Not or Race: White _ Providers: [facility]MD Referring MD: Tyrell Castillo (Referring [...] bowel preparation was evaluated using the BBPS ([place] Bowel Preparation Scale) with scores of: Right [...] non-reyez portions. Procedure Code(s): --- Professional --- 28885, Colonoscopy, flexible; with removal of tumor(s), polyp(s), or other lesion(s) by snare technique Diagnosis Code(s): --- Professional --- Z86.010, Personal history of colonic polyps D12.7, Benign neoplasm of rectosigmoid junction K64.1, Second degree hemorrhoids K64.4, Residual hemorrhoidal skin tags CPT copyright 2021 [employer]. All rights reserved. The codes documented in this report are preliminary and upon director behavioral health review may be revised to meet current compliance requirements. Taty Toussaint MD ([place]) 02/16/2024 3:00:29 PM Note Initiated On: 02/16/2024 1:26 PM Number of Addenda: [address] 02/16/2024 1:26 PM CDT Taty Toussaint MD GI PROCEDURE ORDE RABLES Performing Organization Address [facility]/ZIP Co de Phone Number [facility] * HIV-1 HIV-2 ANTIGEN/ANTIBODY (02/23/2020 8:03 PM CDT) HIV Antigen/Antibod y 1 & 2 Non-reacti ve Non-react starla 02/23/2020 9:07 PM CDT [facility] Comment:Neither HIV-1 p24 An tigen nor HIV-1/HIV-2 Antibodies are detected. Blood BLOOD SPECIMEN / Unknown Venipuncture / Unknown 02/23/2020 8:03 PM CDT 02/23/2020 8:25 PM CDT Jimmy Rice MD LAB - HEMATOLOGY ORD ERABLES Performing Organization Address [facility] Co de Phone Number [address] [phone] [phone] * HEPATITIS C AB SCREEN RFLX NAAT QUANT (02/23/2020 8:03 PM CDT) Hepatitis C Antibody Non-react starla Non-reac tive 02/23/2020 9:12 PM CDT [facility] Comment:Hepatitis C Antibody screen indicates no [...] Jimmy Rice MD LAB - CHEMISTRY TIANNA Garcia Organization Address City/State/ZIP Co de Phone Number [address] [address], [facility] [phone] from Last 3 Months or Most Recently Relevant to Health Maintenance Care Teams Financial Sales Representative Relationship Specialty Start Date End Date Tyrell Castillo DO [address] [place] [address] PCP - General Internal Medicine 03/15/24
[2024-10-23 13:47] VITALS: BMI 22.9
--- NOTE | 2024-10-23 13:47 | WPDSLEEPSTUD ---
Sleep Study Date of Study: 09/29/24 Ordering Provider: Daniel Olmedo DO Interpreting Physician: Karen Beverly DO Sleep Study Type: Polysomnogram Height: 1.65 m Weight: 62.596 kg Body Mass Index: 22.9 Neck Circumference (inches): 13 Bradford: 13 Reason for Sleep Study Daytime hypersomnia Sleep History The patient is a 59-year-old female that had a sleep study ordered by her business excellence manager for evaluation of sleep apnea. The patient frequently awakens from sleep short of breath. She rarely awakens at night with heartburn, belching or cough. She denies snoring. She occasionally has trouble sleeping when she has a cold. She frequently wakes up gasping for air throughout the night. She frequently sweats excessively at night. She frequently has heart palpitations or irregular heartbeats during the night. She frequently falls asleep during the day but never while driving. She frequently has trouble at school or work due to sleepiness. She denies sleep paralysis. She occasionally feels afraid of going to sleep. She rarely has nightmares. She rarely remembers her dreams. She occasionally has thoughts racing through her mind. She frequently feels sad or depressed. She constantly has anxiety. She constantly has muscular tension. She occasionally notices parts of her body jerk. She frequently kicks during the night. She frequently has crawling and aching feelings in her legs frequently has leg pain during the night. She occasionally grinds her teeth during sleep and frequently awakens with morning jaw pain. She is constantly bothered by pain during the day and occasionally awakened by pain during the night. She constantly wakes up feeling stiff in the morning. He constantly wakes up with sore or achy muscles. She constantly wakes up with pain in the neck, spine and joints. She goes to bed between 10-11 p.m. on both weekdays and weekends. It takes her 20-60 minutes to fall asleep. She wakes up 1-2 times throughout the night for unknown reasons. When she awakens, she will watch YouTube videos and smoke marijuana. It takes her 45-60 minutes to fall back asleep. She wakes up between 6-7 a.m. on weekdays and between 6-8 a.m. on the weekends. She typically gets 6-7 hours of sleep total throughout the night. She does not stay in bed after waking up the morning. She currently lives alone. She will consume caffeinated beverages within 2 hours of bedtime. She denies engaging in physical exercise before bedtime. She will read before falling asleep. She denies watching television before falling asleep. She will take naps in afternoon or the evening but they are not refreshing. She consumes 2-3 cups of coffee per day. She quit smoking 33 years ago. She denies alcohol use. She uses medical marijuana. [facility] Past Medical History Medical History Encounter for postoperative care Hallux valgus (acquired), right foot Acquired hallux valgus of left foot Generalized anxiety disorder Acid reflux Seasonal allergies Anxiety Surgical History Surgical History H/O dilation and curettage History of resection of pancreas 2014 [facility], pseudo tumor - benign History of abdominoplasty History of tonsillectomy Family History Family History Mother Ovarian cancer Uterine cancer Social History Social History Smoking packs per day: 0.5 Smoking cigarettes per day: 10.0 Years smoked: 6 Smoking pack-years: 3.00 Smoking status: Former smoker Tobacco type: cigarettes Second hand tobacco smoke exposure: Yes Smoking end date: 04/27/90 Alcohol intake: never Substance use: current Substance use type: marijuana Other substance usage details: Medical marijuana daily Do You Feel Safe in your Home?: Yes Lack of Transportation: No Lack of Food: Never True Current Housing: I Have Housing Concerned About Future Housing: No Difficulty Paying Gas/Electric Bills: No Difficulty Paying for Meds: No Currently Unemployed: No Education: Trade/Vocational Certificate Difficulty w/ Childcare or Family Care: No Living arrangements: with family Spiritual care concerns: No Medications Home Medications ?Medication ?Instructions ?Recorded ?Confirmed ?Type nortriptyline 25 mg capsule 25 mg PO QHS 03/24/21 08/10/24 History aspirin 81 mg tablet,delayed 81 mg PO DAILY 04/23/21 08/10/24 History release (Adult Low Dose Aspirin) albuterol sulfate 90 mcg/actuation 2 inh inhalation Q4H PRN shortness 12/28/22 08/10/24 Rx aerosol inhaler of breath or wheezing #8.5 grams B-complex with vitamin C 1 tablet PO DAILY 05/17/23 08/10/24 History pantoprazole 20 mg tablet,delayed 20 mg PO QAM 05/17/23 08/10/24 History release (Protonix) oxybutynin chloride 10 mg 10 mg PO DAILY 01/20/24 08/10/24 History tablet,extended release 24 hr sumatriptan succinate 25 mg tablet See Rx Instructions PO .COMPLEX #9 07/03/24 08/10/24 Rx tabs pravastatin 10 mg tablet See Rx Instructions .Route 08/30/24 Rx .COMPLEX #90 tabs clonazepam 0.5 mg tablet 0.5 mg PO DAILY PRN anxiety #30 10/12/24 Rx tabs Sleep Procedure A full night polysomnogram using the Vanu multi-channel system recorded the standard physiologic parameters including EEG, EOG, submentalis EMG, anterior tibialis EMG, EKG, body position, nasal and oral airflow using nasal pressure sensor and thermistor.? Respiratory parameters of chest and abdominal movements were recorded with Respiratory Inductance Plethysmography belts. Oxygen saturation was recorded by pulse oximetry. Video monitoring was also performed. Sleep stages, periodic limb movements, and EEG arousals were scored in 30 second epochs according to the criteria of the AASM Scoring Manual. The Apnea-Hypopnea Index was calculated using CMS guidelines for definition of hypopnea with 4% O2 desaturations while scoring respiratory events. Sleep Architecture The total recording time was 446.9 minutes.? The total sleep time was 375.5 minutes. Sleep latency was 5.4 minutes. REM latency was 210.5 minutes. Sleep efficiency was 84.0%. The patient had 79 awakenings for an awakening index of 12.6. Wake after sleep onset time was 66.0 minutes. The patient spent 73.0 minutes, 19.4% of total sleep time in Stage N1. The patient spent 267.0 minutes, 71.1% in Stage N2. The patient spent 19.5 minutes, 5.2% in Stage N3. The patient spent 16.0 minutes, 4.3% in Stage REM sleep. Respiratory Analysis The patient had 1 hypopnea for an overall Apnea Hypopnea Index of 0.2. The REM Apnea Hypopnea Index was 3.8. The NREM Apnea Hypopnea Index was 0. The patient had a Central Apnea Hypopnea Index of 0. There was no evidence of Colten-Worthy Respirations. Arousals There were 107 total arousals for an arousal index of 17.1. There were 105 spontaneous arousals for an index of 16.8. There were 2 arousals due to respiratory events for an index of 0.3. There were 0 arousals due to periodic limb movements for an index of 0.? There were 0 arousals due to isolated limb movements for an index of 0. Periodic Limb Movements The patient had 2 isolated limb movements with an index of 0.3. The patient had 0 periodic limb movements with an index of 0. Patient had a total of 2 limb movements with a total limb movement index of 0.3. Oximetry Data The patient had an average oxygen saturation of 95.2% in sleep with a minimum oxygen saturation of 93.0% and a maximum oxygen saturation of 98.0%. The patient had 2 oxygen desaturations that were 4% or greater resulting in an Oxygen Desaturation Index of 0.3.? The patient spent 0 minutes of total sleep time with an oxygen saturation below 88%. Snoring Profile Mild snoring was present intermittently throughout the study. Cardiac Profile The EKG showed normal sinus rhythm. No arrhythmias or premature beats were seen. The patient had an average pulse rate of 65.0 bpm with a minimum pulse of rate of 49.0 bpm and a maximum pulse rate of 99.0 bpm.? EEG Profile No signs of seizure activity seen. Alpha intrusion is present. Assessment and Plan Assessment and Plan (1) Excessive daytime sleepiness: Code(s): G47.19 - Other hypersomnia Status: Acute Assessment and Plan: The patient had an overall AHI of 0.2 with desaturation down to 93%. This is not consistent with sleep disordered breathing. Alpha intrusion, also known as alpha-delta sleep, is an EEG finding where alpha waves are present during NREM sleep. Alpha waves are typically present in wake. While alpha intrusion can be seen in a small subset of healthy individuals, it is often found in patients with depression, fibromyalgia, chronic pain and other sleep disorders. Clinically, alpha intrusion presents as non-restorative sleep. Treatment of alpha intrusion is directed towards the underlying cause. Data The data obtained during this sleep study is adequate for interpretation. Certification This sleep study has been reviewed by a board certified sleep medicine physician.
== END 2024-09-30 06:29 | disposition home or self-care (01) ==
LOC: ANHCSM 19:38
PROVIDERS: PCP Internal Medicine; Visit Provider Internal Medicine Cardiovascular Disease
DX: G47.19 Other hypersomnia (principal)
CPT/HCPCS: 95810

== ENCOUNTER 2025-03-09 01:04 | Observation (INO) | payer OTHER, SELFPAY ==
[2025-03-09] VITALS (15 sets, daily range): BP systolic 137–187; BP diastolic 83–102; PULSE 62–94; RESP 11–22; TEMP 36.7–36.9; O2SAT 97–100; BMI 24.0
--- NOTE | 2025-03-09 | ECHO_ITS ---
Patient Info Name: Velia Corcoran Age: 60 years : 1965 Gender: Female Ht: 66 in Wt: 149 lbs BSA: 1.78 m2 HR: 69 bpm BP: 156 / 98 mmHg Technical Quality: Fair Exam Date: 03/09/2025 9:40 AM Patient Status: I Admit Date: 03/09/2025 Exam Type: CA echo doppler color flow Complete two-dimensional, color flow and Doppler transthoracic echocardiogram is performed. Staff Referring Physician: Daniel Olmedo DO Furniture Lumber Production Worker: Lizzeth Asencio Attending Provider: Deyanira Messina DO Summary 1. Complete two-dimensional, color flow and Doppler transthoracic echocardiogram is performed. 2. Left ventricular chamber dimension is normal. 3. Left ventricular systolic function is normal, estimated at 65-70. 4. The left ventricular diastolic function is grade I diastolic dysfunction. 5. E/e' 8 is minimally elevated. 6. No pulmonary hypertension, estimated pulmonary arterial systolic pressure is 19 mmHg. Left Ventricle E/e' 8 is minimally elevated. Left ventricular chamber dimension is normal. Left ventricular systolic function is normal, estimated at 65-70. The left ventricular diastolic function is grade I diastolic dysfunction. Right Ventricle Right ventricular chamber dimension is normal. Right ventricular systolic function is normal and with normal TAPSE 2.7 cm. Left Atria Left atrial chamber dimension is normal. Right Atria Right atrial chamber dimension is normal. Aortic Valve The aortic valve is trileaflet. There is no aortic valve stenosis. There is no aortic valve regurgitation. Pulmonic Valve There is no pulmonic regurgitation. Mitral Valve There is no mitral valve stenosis. There is no mitral valve regurgitation. Tricuspid Valve There is no tricuspid valve regurgitation. No pulmonary hypertension, estimated pulmonary arterial systolic pressure is 19 mmHg. Pericardium/Pleural There is no pericardial effusion. Inferior Vena Cava Normal inferior vena cava with >50% collapse upon inspiration consistent with normal right atrial pressure, 5 mmHg. Aorta The aortic root size at the sinus of Valsalva is normal. Left Ventricular Outflow Tract Name Value Normal LVOT 2D LVOT Diameter 1.7 cm LVOT Doppler LVOT Peak Velocity 155 cm/s LVOT Peak Gradient 10 mmHg LVOT Mean Gradient 6 mmHg LVOT VTI 37 cm LVOT VTI/AV VTI Ratio 0.9 LVOT Stroke Volume 86 ml LVOT CO 16.2 l/min LVOT CI 9.1 l/min/m2 Pulmonic Valve Name Value Normal PV Doppler PV Peak Velocity 120 cm/s PV Peak Gradient 6 mmHg Mitral Valve Name Value Normal MV Diastolic Function MV E Peak Velocity 66 cm/s MV A Peak Velocity 71 cm/s MV E/A 0.9 MV Decel Time (PW) 202 ms MV Annular TDI MV E/e' (Septal) 6.8 MV E/e' (Lateral) 10.2 MV E/e' (Average) 8.5 Tricuspid Valve Name Value Normal TV Regurgitation Doppler TR Peak Velocity 186 cm/s TR Peak Gradient 14 mmHg Estimated PAP/RSVP RA Pressure 5 mmHg <=5 PA Systolic Pressure 19 mmHg <36 RV Systolic Pressure 19 mmHg <36 TV Annular TDI TV Lateral Luz Maria s' Velocity 23.0 cm/s >=9.5 Aortic Valve Name Value Normal AV Doppler AV Peak Velocity 209 cm/s AV Peak Gradient 17 mmHg AV Mean Gradient 11 mmHg AV VTI 41 cm AV Area (Cont Eq VTI) 2.1 cm2 >=3.0 AV Area (Cont Eq Faizan) 1.8 cm2 AV DI (Faiazn) 0.75 AV Regurgitation 2D LVOT Area 2.3 cm2 Ventricles Name Value Normal LV Dimensions 2D/MM IVS Diastolic Thickness (2D) 1.0 cm 0.6-1.0 LVID Diastole (2D) 3.1 cm 3.8-5.2 LVIW Diastolic Thickness (2D) 1.1 cm 0.6-0.9 LVID Systole (2D) 1.9 cm 2.2-3.5 LVOT Diameter 1.7 cm LV Mass (2D Cubed) 94.84 g 67.00-162.00 LV Mass Index (2D Cubed) 53 g/m2 43-95 Relative Wall Thickness (2D) 0.72 <=0.42 LV Fractional Shortening/Ejection Fraction 2D/MM LV Fractional Shortening (2D) 37 % 27-45 LV EF (2D Teichholz) 69 % LV Diastolic Volume (4C MOD) 66 ml LV EF (4C MOD) 55 % LV Diastolic Volume (2C MOD) 91 ml LV EF (2C MOD) 62 % LV Diastolic Volume (BP MOD) 78 ml 46-106 LV Diastolic Volume Index (BP MOD) 44 ml/m2 29-61 LV Systolic Volume (BP MOD) 33 ml 14-42 LV Systolic Volume Index (BP MOD) 18 ml/m2 8-24 LV EF (BP MOD) 59 % 54-74 LV Diastolic Length (4C) 6.6 cm LV Systolic Length (4C) 5.6 cm LV Stroke Volume (4C MOD) 36 ml RV Dimensions 2D/MM RVID Diastole (2D) 3.3 cm 2.1-3.5 Atria Name Value Normal LA Dimensions LA Volume (4C A-L) 23 ml LA Volume (BP A-L) 28 ml Report Signatures
--- NOTE | ~2025-03-09 | XR_ITS ---
EXAMINATION: XR chest 1V portable 03/09/2025 04:43 INDICATION: Chest pain PROCEDURE: 2 view chest COMPARISON: No prior studies for comparison. FINDINGS: The lungs are clear. The lungs are hyperinflated which is consistent with, but not diagnost ic of chronic obstructive pulmonary disease. The cardiomediastinal silhouette is within normal limits . There are no pleural effusions. There is no pneumothorax suspected. IMPRESSION: 1: NO ACUTE CARDIOPULMONARY DISEASE. Reviewed, dictated and finalized at location A.
--- NOTE | ~2025-03-09 | NM_ITS ---
EXAMINATION: NM jorge stress w perfusion DATE: 03/09/2025 13:28 CDT INDICATION: Chest pain TECHNIQUE: Rest images were obtained following intravenous administration of 10.3 mCi Tc99m tetrofosm in (Myoview). The patient was infused intravenously with Lexiscan (regadenoson). Then, 30.3 mCi Tc99m tetrofosmin (Myoview) was administered intravenously, and stress images were obtained. Data was jony nstructed into short axis and horizontal and vertical long axis SPECT images. Gated SPECT images were also obtained. COMPARISON: None. FINDINGS: There is no definite reversible or fixed perfusion abnormality to suggest ischemia or infar ction. There is no segmental wall motion abnormality. Left ventricular ejection fraction measures 8 1%. IMPRESSION: 1. No definite ischemia or infarct. 2. Normal left ventricular ejection fraction measuring 81%. Reviewed, dictated and finalized at location A.
--- NOTE | 2025-03-09 01:13 | ECG_ITS ---
Test Date: 2025-03-09 01:23:48 Measurements Intervals [place] Rate: 86 P: 73 ID: [id number] QRS: 32 QRSD: 98 T: 74 QT: 394 QTc: 472 Interpretive Statements SINUS RHYTHM INFERIOR INFARCT, AGE INDETERMINATE ANTEROLATERAL INFARCT, AGE INDETERMINATE ABNORMAL ECG No previous ECG available for comparison Electronically Signed On 03-09-2025 06:25:25 CDT by Daniel Olmedo D.O.
--- OUTSIDE RECORDS SUMMARY | 2025-03-09 01:14 | XMS_ITS | Clinical Summary ---
Author Organization [facility] [employer] Address [address] [place] [address] Care Team Providers Care Dance Teacher Name Role Phone Tyrell Castillo DO Primary Care Provider [phone] Source Comments [facility],non[facility] Affiliates and Associated Physician Practices is amultiple site organization consisting of ambulatory clinics and hospital sitesin [place], [place], [place] and [place]. This disclosure is being madepursuant to the Care Everywhere program and may not contain all information available regarding this patient. Last updated 18.[facility] [employer] Allergies Active Allergy Reactions Criticality Noted Date Comments Latex Swelling High 05/06/2009 Medications * Be aware that medications may not be up to date on this document. Alwaysverify current medications with the patient. medical marijuana Active SUMAtriptan Succinate (IMITREX PO) Take by mouth as needed Active aspirin EC (ECOTRIN) 81 MG tablet Take 1 (one) tablet by mouth once daily Active B Complex Vitamins (VITAMIN B COMPLEX) tablet Take 1 (one) tablet by mouth once daily Active albuterol HFA (Proventil; Ventolin; Proair) 108 (90 Base) MCG/ACT inhaler 3 Active clonazePAM (KlonoPIN) 0.5 MG tablet 3 Active pravastatin (Pravachol) 10 MG tablet 4 Active triamcinolone acetonide (Kenalog) 0.1 % cream 4 Active support hose waist high moderate compression (Jobst) support hoseIndications: Varicose veins of bilateral lower extremities with other complications,Pe lvic congestion syndrome Apply 1 (one) Each to affected area as directed 1 Each 5 Active oxyBUTYnin CR 24hr (Ditropan-XL) 10 MG tabletIndication s:Overactive Bladder Take 1 (one) tablet by mouth once daily Reasons: Overactive Bladder 90 tablet 4 5 Active nortriptyline (Pamelor) 25 MG capsuleIndicatio ns:Chronic Pain,Depression, Panic Disorder,Functio nal abdominal pain Take 1 (one) capsule by mouth at bedtime Reasons: Chronic Pain, Depression, Panic Disorder, Functional abdominal pain 90 capsule 3 5 Active pantoprazole EC (Protonix) 40 MG tabletIndication s:Gastro-esophag eal reflux disease without esophagitis Take 1 (one) tablet by mouth once daily 90 tablet 3 5 Active Acetaminophen Extra Strength 500 MG TABS 4 Active ibuprofen (Motrin) 600 MG tablet 4 Active oxyCODONE, immediate release, (Roxicodone) 5 MG tabletIndication s:Pelvic congestion syndrome Take 1 (one) tablet by mouth every 6 hours as needed for Pain 20 tablet 5 Active ondansetron, disintegrating, (Zofran ODT) 4 MG tablet Take 1 (one) tablet by mouth every 6 hours as needed for Nausea/Vomiting Allow tablet to dissolve on the tongue 8 tablet 5 Active Hospital, Clinic, or Other Facility Administered Medication Ordered Dose Route Frequency Start Date End Date Status triamcinolone acetonide (Kenalog) injection 10 mgIndications:Hypert rophic Scar 10 mg INTRA-LESION ONCE 02/27/2025 02/27/2025 Ended Active Problems Problem Noted Date Diagnosed Date [...] Encounters Date Type Department Care Team Description 02/27/2025 10:45 AM CDT Office Visit [facility] - Dermatology [address] [place] [phone] Follow-up examination (Primary Dx); Hypertrophic scar 02/27/2025 Travel 01/12/2025 3:00 PM CDT Office Visit [facility] [address] [facility] [place] [address] Lissy Yanes DO Pelvic congestion syndrome (Primary Dx); Varicose veins of bilateral lower extremities with other complications 01/12/2025 Travel 12/27/2024 11:44 AM CDT - 12/27/2024 6:00 PM CDT Hospital Encounter [facility] [address] [place] [phone] uRben Reyes MD [facility] Discharge Disposition: Home or Self Care 12/27/2024 Travel 12/20/2024 10:00 AM CDT Office Visit [facility] - Dermatology [address] [place] [phone] Shant Green MD Scar (Primary Dx); Multiple benign nevi of upper extremity, lower extremity, and trunk 12/20/2024 Travel 12/19/2024 Travel 12/19/2024 Telephone [facility] [address] [place] [phone] Taty Nair, RN Appointment (RN called patient to set up apt for gonodal vein embolization, no answer, left message offered 12/25/24 0745, 12/27/24 1130, or 12/28/24 0645. Requested a call back with number provided.) 12/14/2024 Telephone [facility] [address] [place] [phone] Lissy Yanes DO Follow-up 12/12/2024 Orders Only [facility] [address] [facility] [place] [phone] Marky Rosales, RN Varicose veins of bilateral lower extremities with other complications ; Pelvic congestion syndrome from Last 3 Months Immunizations Immunization Administration Dates Next Due Covid Pfizer primary [...] drink = 0.6 oz pur e alcohol) Comments No Sex and Gender Information Value Date Recorded Sex Assigned at Not on file 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 Gender Identity Not on file Sexual Orientation Not on file Last Filed Vital Signs Vital Sign Reading Time Taken Comments Blood Pressure 125/81 01/12/2025 3:17 PM CDT Pulse 94 01/12/2025 3:17 PM CDT Temperature 36.3 C (97.3 F) 01/12/2025 3:17 PM CDT Respiratory Rate 12 01/12/2025 3:17 PM CDT Oxygen Saturation 98% 01/12/2025 3:17 PM CDT Inhaled Oxygen Concentration 99% 02/28/2020 1 2:36 PM CDT Weight 62.6 kg (138 lb) 01/12/2025 3:17 PM CDT Height 165.1 cm (5' 5) 01/12/2025 3:17 PM CDT Body Mass Index 22.96 01/12/2025 3:17 PM CDT Plan of Treatment Upcoming Encounters Date Type Department Care Team (Late st Contact Info) Description 04/26/2025 10:30 AM CDT Office Visit [facility] - Dermatology [address] [facility] [place] [address] 12/06/2025 10:00 AM CDT Office Visit [facility] - GI [address], [facility] [place] [phone] 01/11/2026 12:00 PM CDT Appointment [facility] [address] [place] [phone] Lissy Yanes, DO [address] [place] [address] 01/11/2026 12:30 PM CDT Office Visit [facility] [address] [facility], [place] [address] Lissy Yanes DO [address] [place] [address] Health Maintenance Due Date Last Done Comments COLOGUARD (AGES 45-75) - COLON CA SCREENING 1964 CT COLONOGRAPHY - COLON CA SCREENING 1965 FIT - COLON CA SCREENING 1965 FLEX SIG - COLON CA SCREENING 1965 MAMMOGRAM 1965 DTAP/TDAP/TD VACCINES (1 - Tdap) 02/21/1983 PAP SMEAR 02/21/1985 PNEUMOCOCCAL VACCINE 50+ (1 of 1 - PCV) 02/21/2014 ZOSTER VACCINE (1 of 2) 02/21/2014 Respiratory Syncytial Virus (RSV) Vaccine Pt: or over 60 yrs (1 - Risk 60-74 years 1-dose series) 2024 COVID-19 VACCINE ( season) 2024 02/27/2022, 08/22/2021, 11/26/2020, Additional history exists DEPRESSION SCREENING 07/26/2024 INFLUENZA VACCINE (#1) 2025 COLON MONITORING 02/15/2034 02/16/2024, 02/16/2024 COLONOSCOPY - [...] complete this topic MENINGOCOCCAL (Group B) VACCINE SHARED DECISION-MAKING Aged Out No longer eligible based on patient's age to complete this topic MENINGOCOCCAL GROUPS A/C/Y/W VACCINE Aged Out No longer eligible based on patient's age to complete this topic Goals Goal Patient Goal Type Associated Problems Recent Progress Patient-Stated? Author Medication Management General On track( 3:22 PM CDT) No Samia Rae, RN Note: Expected end date: Ongoing Interventions: Take all medications as prescribed Let your doctor know right away about any changes in your medications Make sure to request a refill of your medication at least one week prior to your last dose Safety General On track( 3:22 PM CDT) No Fara Cisneros RN Note: Expected end date: ongoing Interventions: Wear glasses/hearing aid Keep personal items within easy reach Use some light at night in your room Medical Devices Implanted Type Area Professional Development Director Device Identifier Shelf Expiration Date Model / Serial / Lot Coil Pod 60cm 10-12mm Emb-12/27/2024 Implanted:Qty: 1 on 12/27/2024 by Lissy Yanes DO Left: Vein [employer] 04/13/2029 [id number] / / [id number] Description:Implanted in Lef t Gonadal Vein Coil Pod 60cm Pk [facility]-12/27/2024 Implanted:Qty: 1 on 12/27/2024 by Lissy Yanes DO Left: [employer] 04/29/2032 [id number] / / [id number] Description:Coil located in Left Gonadal Vein Coil Pod 60cm Pk Emb J-t [facility]-12/27/2024 Implanted:Qty: 1 on 12/27/2024 by Lissy Yanes DO Left: [employer] 04/29/2032 [id number] / / [id number] Description:Implanted in Lef t Gonadal Vein Coil Zully Pod 30cm 5mm Cmplx Occulusion-2024 Implanted:Qty: 1 on 12/27/2024 by Lissy Yanes DO Left: [employer] 07/30/2032 [id number] / / [id number] Description:Implanted in Lef t Gonadal Vein Coil Penumbra Coil 400 Zully 30cm .02in 5-12/27/2024 Implanted:Qty: 1 on 12/27/2024 by Lissy Yanes DO Left: [employer] 11/16/2029 [id number] / / [id number] Description:Implanted in lef t Gonadal Vein Coil Pod 30cm Pk Embl J-Sft Strl Lf-12/27/2024 Implanted:Qty: 1 on 12/27/2024 by Lissy Yanes DO Left: [employer] 05/15/2031 [id number] / / [id number] Description:Implanted in lef t Gonadal Vein Coil Zully Pod 50cm 6mm Cmplx Embl-12/27/2024 Implanted:Qty: 1 on 12/27/2024 by Lissy Yanes DO Left: Vein [employer] 03/05/2032 [id number] / / [id number] Description:Implanted in Lef t Gonadal Vein Procedures Procedure Name Priority Date/Time Associated Diagnosis Comments TRIAMCINOLON ACETONID NOS 10 MG INJ Routine 02/28/2025 11:46 AM CDT Hypertrophic scar NE INTRALESIONAL INJECTION(S) 7 OR LESS Routine 02/28/2025 11:46 AM CDT Hypertrophic scar IR EMBOLIZATION TRANSCATH THPY Routine 12/27/2024 4:48 PM CDT Pelvic congestion syndrome CBC W AUTO DIFFERENTIAL STAT 12/27/2024 12:58 PM CDT Pelvic congestion syndrome BASIC METABOLIC PANEL (CALCIUM TOTAL) STAT 12/27/2024 12:58 PM CDT Pelvic congestion syndrome PT-INR STAT 12/27/2024 12:58 PM CDT Pelvic congestion syndrome NE INTRALESIONAL INJECTION(S) 7 OR LESS Routine 12/20/2024 10:53 AM CDT Scar ENDOSCOPY, COLON, SCREENING Routine 02/16/2024 1:26 PM CDT HEPATITIS C AB SCREEN RFLX NAAT QUANT STAT 02/23/2020 8:03 PM CDT HIV-1 HIV-2 ANTIGEN/ANTIBODY STAT 02/23/2020 8:03 PM CDT from Last 3 Months or Most Recently Relevant to Health Maintenance Results * NE INTRALESIONAL INJECTION(S) 7 OR LESS, TRIAMCINOLON ACETONID NOS 10 MG INJ (02/28/2025 11:46 AM CDT) Narrative Shant Green MD - 02/28/2025 11:46 AM CDT Shant Green MD 02/28/2025 11:46 AM Side effects of intralesional steroid injection were reviewed with the patient, including petechiae and purpura, local lipoatrophy, striae and pigment change. Verbal consent obtained to proceed. Using a 30G needle, a total of 0.5 ml of Kenalog 10 mg/ml was administered into the left cheek and left nose. Patient tolerated the procedure well without complications. Shant Green MD Shant Green MD PROCEDURE/MINOR SURGICAL ORDER JESUS Final Result * IR Embolization Transcath Thpy (12/27/2024 4:48 PM CDT) Anatomical Region Laterality Modality X-Ray Angiograph y 12/27/2024 5:09 PM CDT Impressions 12/28/2024 8:31 AM CDT Impression: Successful left gonadal vein embolization. I, Dr. Lissy Yanes, was present and performed/supervised the entire procedure. Moderate sedation on this patient was ordered by me, administered intravenously in my presence, and monitored by the procedure nurse as an independent trained observer who was present throughout the procedure. The following parameters were monitored: oxygen saturation, heart rate, blood pressure, and response to care. Intra-service sedation start time was 1442 and end time was 1648 during which I was present. Total physician intra-service sedation time was 206 minutes. For details on pre moderate sedation and post moderate sedation patient evaluation, please review the evaluation forms in [facility]. For details on monitored clinical parameters during the intra-service sedation time, please review the procedure nurse documentation in [facility]. Report dictated by Suri Vasquez MD (president finance company). ILissy MD have personally reviewed and interpreted this examination/study. > Interpreting Provider: Lissy Yanes MD on 12/28/2024 8:31 AM Narrative 12/28/2024 8:31 AM CDT PROCEDURE: IR EMBOLIZATION TRANSCATH THPY, DATE/TIME OF EXAM: 12/27/2024 5:21 PM, LOCATION [facility] History: 59 year old female with a past medical history of pancreatitis, PTSD, arthritis, congestive heart failure, fibromyalgia, GERD, chronic abdominal pain, chronic diarrhea, dysphagia, CBD stricture, presenting for left gonadal vein embolization. Patient's venogram on 12/06 showed enlarged left gonadal vein with IVUS with no evidence of iliac vein compression. CT suggested potential nutcracker syndrome etiology. Operators: 1.Dr. Lissy Yanes, Attending Physician 2.Dr. Suri Vasquez, Resident Physician 3.Anthony Posey MS4 Anesthesia: 1.Local anesthesia - 10 mL of 1% lidocaine 2.Intravenous conscious sedation - Versed: 4 mg, Fentanyl: 200 mcg Procedure: 1.Ultrasound-guided access of the right internal jugular vein 2.Selective catheterization of the left renal vein (1st order) and venogram. 3.Selective catheterization of the left gonadal vein (2nd order) and venogram. 4.Subselective catheterization of a branch of left gonadal vein (3rd order) and venogram. 5.Balloon occlusion of left gonadal vein and embolization with sodium tetradecyl sulfate/gel foam and multiple coils. Fluoroscopic time: 21.02 minutes Contrast: 75 mL of Isoview-370 Procedure in detail: The procedure, risks, possible complications, and the use of conscious sedation were explained to the patient in detail, and informed consent was obtained. The patient was placed supine of the angiography table. A time out was performed to correctly identify the patient and the procedure. The right neck was prepped and draped in the usual sterile fashion. Limited ultrasound of the right internal jugular vein demonstrated a patent and compressible vein. A jennings scale image was documented. After anesthetizing with 1% lidocaine, the right internal jugular vein was accessed using a micropuncture needle. The needle entry was documented. After a series of exchanges, an 6 Uruguayan vascular sheath was placed. The left renal vein was selected with a 5 [place]ayan MPA catheter and a venogram was obtained demonstrating patent left renal vein. The left gonadal vein then selectively catheterized with a 5 Fr MPA catheter and a venogram was obtained, demonstrating prominent gonadal vein and parauterine veins. The 5 [place]ayan MPA catheter was exchanged for 5 [place] Nikki balloon. Balloon occlusion venogram was performed, demonstrating opacification of an enlarged left gonadal vein and parauterine veins. Due to catheter/microcatheter incompatibility, over an 035 Sow wire, the system was exchanged for an 8 [place]ruguayan vascular sheath and a 7 [place] Nikki balloon. Balloon occlusion venogram was performed again, verifying catheter positioning. A 2.8 [place] Progreat was then advanced through the Nikki balloon in left gonadal vein After confirming safety with the contrast injection, a mixture of gelfoam /air, contrast and 3% Sotradecol was formed and approximately 20 mL total was injected into left gonadal vein in an alternating fashion with multiple coils, with intermittent venograms. The microcatheter was utilized to select small side branch arising from the gonadal vein, which was coiled. Completion left renal vein venogram demonstrates patent left renal vein without opacification of the left gonadal vein. 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 The patient tolerated the procedure well and was transferred to the holding area in stable condition. There were no immediate complications associated with the procedure. COILS USED: Zully POD12 12 mm x 60 cm Packing coil 60 cm (x2) Zully POD5 5 mm x 30 cm Zully 5 mm x 30 cm Procedure Note Lissy Yanes, - 12/28/2024 PROCEDURE: IR EMBOLIZATION TRANSCATH CALLIE, DATE/TIME OF EXAM: 12/27/2024 5:21 PM, LOCATION [facility] History: 59 year old female with a past medical history of pancreatitis, PTSD, arthritis, congestive heart failure, fibromyalgia, GERD, chronic abdominal pain, chronic diarrhea, dysphagia, CBD stricture, presentingfor left gonadal vein embolization. Patient's venogram on 12/06 showedenlarged left gonadal vein with IVUS with no evidence of iliac vein compression.CT suggested potential nutcracker syndrome etiology. Operators: 1.Dr. Lissy Yanes, Attending Physician 2.Dr. Suri Vasquez, Resident Physician 3.Anthony Posey MS4 Anesthesia: 1.Local anesthesia - 10 mL of 1% lidocaine 2.Intravenous conscious sedation - Versed: 4 mg, Fentanyl: 200 mcg Procedure: 1.Ultrasound-guided access of the right internal jugular vein 2.Selective catheterization of the left renal vein (1st order) and venogram. 3.Selective catheterization of the left gonadal vein (2nd order) and venogram. 4.Subselective catheterization of a branch of left gonadal vein (3rdorder) and venogram. 5.Balloon occlusion of left gonadal vein and embolization with sodium tetradecyl sulfate/gel foam and multiple coils. Fluoroscopic time: 21.02 minutes Contrast: 75 mL of Isoview-370 Procedure in detail: The procedure, risks, possible complications, and the use of conscious sedation were explained to the patient in detail, and informed consentwas obtained. The patient was placed supine of the angiography table. A time out was performed to correctly identify the patient and the procedure. The right neck was prepped and draped in the usual sterile fashion.Limited ultrasound of the right internal jugular vein demonstrated a patent and compressible vein. A jennings scale image was documented. Afteranesthetizing with 1% lidocaine, the right internal jugular vein was accessed using a micropuncture needle. The needle entry was documented. After a series of exchanges, an 6 [place]ruguayan vascular sheath was placed. The left renal vein was selected with a 5 [place] MPA catheter and a venogram was obtained demonstrating patent left renal vein. The left gonadal vein then selectively catheterized with a 5 Fr MPA catheter florentin venogram was obtained, demonstrating prominent gonadal vein andparauterine veins. The 5 [place]ayan MPA catheter was exchanged for 5 [place] Nikki balloon. Balloon occlusion venogram was performed, demonstrating opacification of an enlarged left gonadal vein and parauterine veins.Due to catheter/microcatheter incompatibility, over an 035 Sow wire, the system was exchanged for an 8 [place]ayan vascular sheath and a 7 French[place]ogarty balloon. Balloon occlusion venogram was performed again, verifyingcatheter positioning. A 2.8 [place] Progreat was then advanced through the Nikki balloon in left gonadal vein After confirming safety with the contrast injection, a mixture ofgelfoam /air, contrast and 3% Sotradecol was formed and approximately 20 mLtotal was injected into left gonadal vein in an alternating fashion withmultiple coils, with intermittent venograms. The microcatheter was utilized to select small side branch arising from the gonadal vein, which wascoiled. Completion left renal vein venogram demonstrates patent left renal vein without opacification of the left gonadal vein. 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 The patient tolerated the procedure well and [facility]. There were no immediate complicationsassociated with the procedure. COILS USED: Zully POD12 12 mm x 60 cm Packing coil 60 cm (x2) Zully POD5 5 mm x 30 cm Zully 5 mm x 30 cm Impression: Successful left gonadal vein embolization. I, Dr. Lissy Yanes, was present and performed/supervised the entire procedure. Moderate sedation on this patient was ordered by me, administered intravenously in my presence, and monitored by the[facility] as an independent trained observer who was present throughout the procedure. The following parameters were monitored: oxygen saturation, heart rate, blood pressure, and response to care. Intra-service sedation start time was 1442 and end time was 1648 during which I was present.Total physician intra-service sedation time was 206 minutes. For details onpre moderate sedation and post moderate sedation patient evaluation, please review the evaluation forms in [facility]. For details on monitored clinical parameters during the intra-service sedation time, please review the procedure nurse documentation in [facility]. Report dictated by Suri Vasquez MD (president finance company). ILissy MD have personally reviewed and interpreted this examination/study. > Interpreting Provider: Lissy Yanes MD on 12/28/2024 8:31 AM us Ruben Reyes MD IR ORDERABLES Final Resu lt * PT-INR (12/27/2024 12:58 PM CDT) PT 12.7 12.1 - 14.8 sec 12/27/2024 1:45 PM CDT [facility] INR 0.9 0.9 - 1.1 12/27/2024 1:45 PM CDT [facility] Blood BLOOD SPECIMEN / Unknown Venipuncture / Unknown 12/27/2024 12:58 PM CDT 12/27/2024 1:06 PM CDT Narrative [facility] - 12/27/2024 1:45 PM CDT Conventional Warfarin Anticoagulant Therapy: INR Reference Range: 2.0-3.0 Intensive Warfarin Anticoagulant Therapy: INR Reference Range: 2.5-3.5 us Ruben Reyes MD LAB - COAGULATION ORDERABL ES Final Result [facility] [address] [place] [address] * CBC W AUTO DIFFERENTIAL (12/27/2024 12:58 PM CDT) WBC 5.3 4.0 - 10.7 x10E9/L 12/27/2024 1:22 PM CDT [facility] RBC Count 4.79 3.90 - 5.20 x10E12/L 12/27/2024 1:22 PM CDT [facility] Hemoglobin 13.9 11.9 - 15.8 g/dL 12/27/2024 1:22 PM CDT [facility] Hematocrit 43.2 34.8 - 46.1 % 12/27/2024 1:22 PM CDT [facility] MCV 90.2 80.0 - 98.0 fL 12/27/2024 1:22 PM CDT [facility] MCH 29.0 26.7 - 33.6 pg 12/27/2024 1:22 PM CDT [facility] MCHC 32.2 31.7 - 36.3 g/dL 12/27/2024 1:22 PM CDT [facility] RDW-CV 13.0 11.3 - 14.8 % 12/27/2024 1:22 PM CDT [facility] Platelet Count 314 150 - 420 x10E9/L 12/27/2024 1:22 PM CDT [facility] MPV 9.0 7.8 - 11.4 fL 12/27/2024 1:22 PM CDT [facility] Neutrophil % 52.3 41.0 - 74.0 % 12/27/2024 1:22 PM CDT [facility] Lymphocyte % 33.7 17.0 - 47.0 % 12/27/2024 1:22 PM CDT [facility] Monocyte % 8.3 3.0 - 11.0 % 12/27/2024 1:22 PM CDT [facility] Eosinophil % 4.4 0.0 - 7.0 % 12/27/2024 1:22 PM CDT [facility] Basophil % 1.1 0.0 - 1.6 % 12/27/2024 1:22 PM CDT [facility] Immature Granulocytes % 0.2 0.0 - 1.0 % 12/27/2024 1:22 PM CDT [facility] Neutrophil Absolute 2.76 1.60 - 7.50 x10E9/L 12/27/2024 1:22 PM CDT [facility] Lymphocyte Absolute 1.78 1.00 - 4.40 x10E9/L 12/27/2024 1:22 PM CDT [facility] Monocyte Absolute 0.44 0.15 - 1.00 x10E9/L 12/27/2024 1:22 PM CDT [facility] Eosinophil Absolute 0.23 0.00 - 0.60 x10E9/L 12/27/2024 1:22 PM CDT [facility] Basophil Absolute 0.06 0.00 - 0.13 x10E9/L 12/27/2024 1:22 PM CDT [facility] Blood BLOOD SPECIMEN / Unknown Venipuncture / Unknown 12/27/2024 12:58 PM CDT 12/27/2024 1:06 PM CDT us Lissy Farzana DO LAB - HEMATOLOGY ORDERABLES Christina l Result [facility] [address] [place] [address] * (ABNORMAL) BASIC METABOLIC PANEL (CALCIUM TOTAL) (12/27/2024 12:58 PM CDT) [facility] Glucose 88 70 - 99 mg/dL 12/27/2024 1:34 PM CDT [facility] Sodium 142 136 - 145 mmol/L 12/27/2024 1:34 PM CDT [facility] Potassium 3.9 3.5 - 5.1 mmol/L 12/27/2024 1:34 PM CDT [facility] Chloride 107 98 - 107 mmol/L 12/27/2024 1:34 PM CDT [facility] CO2 27 22 - 29 mmol/L 12/27/2024 1:34 PM CDT [facility] Calcium 10.3 8.4 - 10.4 mg/dL 12/27/2024 1:34 PM CDT [facility] Anion Gap 8 6 - 16 mmol/L 12/27/2024 1:34 PM CDT [facility] BUN 12 7 - 26 mg/dL 12/27/2024 1:34 PM CDT [facility] Creatinine 0.93 0.57 - 1.11 mg/dL 12/27/2024 1:34 PM CDT [facility] eGFR by CKD-EPI 70(L) >=90 mL/min/1.7 3 m2 12/27/2024 1:34 PM CDT [facility] Blood BLOOD SPECIMEN / Unknown Venipuncture / Unknown 12/27/2024 12:58 PM CDT 12/27/2024 1:06 PM CDT us Lissy Farzana DO LAB - CHEMISTRY ORDERABLES Final Result Performing Organization Address City/State/[facility] de Phone Number [facility] [address] [place], [place] [id number] * NE INTRALESIONAL INJECTION(S) 7 OR LESS (12/20/2024 10:53 AM CDT) Narrative Shant Green MD - 12/20/2024 10:53 AM CDT Shant Green MD 12/20/2024 11:04 AM The side effects of intralesional triamcinolone were discussed with patient, including petechiae and purpura, local lipoatrophy, striae and pigment change. 0.1mL of Triamcinolone 10mg/mL was injected in to left cheek with a 1 cc syringe and a 30 gauge needle. Ashwini Bolivar M.D. [facility] Dermatology Resident Shant Green MD PROCEDURE/MINOR SURGICAL ORDER JESUS Final Result * Endoscopy, Colon, Screening (02/16/2024 1:26 PM CDT) Report Endoscopy POC Endoscopy Department Report _ Patient Name: Velia Corcoran Procedure Date: 02/16/2024 1:26 PM Date of : 1965 Classification: Outpatient Gender: Female Ethnicity: Not or Race: White _ Providers: Taty OropezaMonroe [facility])MD Referring MD: Tyrell Castillo (Referring MD) Procedure: [...] bowel preparation was evaluated using the BBPS ([place] Bowel Preparation Scale) with scores of: Right [...] non-reyez portions. Procedure Code(s): --- Professional --- 73977, Colonoscopy, flexible; with removal of tumor(s), polyp(s), or other lesion(s) by snare technique Diagnosis Code(s): --- Professional --- Z86.010, Personal history of colonic polyps D12.7, Benign neoplasm of rectosigmoid junction K64.1, Second degree hemorrhoids K64.4, Residual hemorrhoidal skin tags CPT copyright 2021 [employer]. All rights reserved. The codes documented in this report are preliminary and upon medical record coder review may be revised to meet current compliance requirements. Taty Toussaint MD ([place]) 02/16/2024 3:00:29 PM Note Initiated On: 02/16/2024 1:26 PM Number of Addenda: [id number] [place] [address] 02/16/2024 1:26 PM CDT Taty Toussaint MD GI PROCEDURE ORDERABLES E dited Result - Final Performing Organization Address [facility]/ZIP Co de Phone Number [facility] * HIV-1 HIV-2 ANTIGEN/ANTIBODY (02/23/2020 8:03 PM CDT) Pathologist [facility] HIV Antigen/Antibod y 1 & 2 Non-reacti ve Non-react starla 02/23/2020 9:07 PM CDT [facility] Comment:Neither HIV-1 p24 An tigen nor HIV-1/HIV-2 Antibodies are detected. Blood BLOOD SPECIMEN / Unknown Venipuncture / Unknown 02/23/2020 8:03 PM CDT 02/23/2020 8:25 PM CDT us Jimmy Rice MD LAB - HEMATOLOGY ORDERABLES F inal Result Performing Organization Address City/[facility]/ZIP Co de Phone Number [address] [address], [facility] [phone] * HEPATITIS C AB SCREEN RFLX NAAT QUANT (02/23/2020 8:03 PM CDT) Hepatitis C Antibody Non-react starla Non-reac tive 02/23/2020 9:12 PM CDT [facility] Comment:Hepatitis C Antibody screen indicates no [...] 8:03 PM CDT 02/23/2020 8:25 PM CDT us Jimmy Rice MD LAB - CHEMISTRY ORDERABLES nal Result [address] [address], [facility] [phone] from Last 3 Months or Most Recently Relevant to Health Maintenance Insurance [facility] Care Teams Dance Teacher Relationship Specialty Start Date End Date Tyrell Castillo DO [address] [place] [id number] PCP - General Internal Medicine 03/15/24
--- OUTSIDE RECORDS SUMMARY | 2025-03-09 01:14 | XMS_ITS | Encounter Summary ---
Author Organization [facility] Address [address] [facility] [place] [address] Care Team Providers Care Manager Consumer Name Role Phone Tyrell Castillo DO Primary Care Provider [phone] Tyrell Castillo DO Primary Care Provider [phone] Encounter Details Date Type Department Care Team (Late st Contact Info) Description 12/07/2023 Telephone [facility] - Dermatology [address] [place] [address], [facility] [place] [address] Shant Green MD [address] [place] [address] 3 [place] [address] Social History Tobacco Use Types Packs/Day Years Used Date Smoking Tobacco: Former Cigarettes Q uit: 08/09/1989 Smokeless Tobacco: Never Alcohol Use Standard Drinks/Week Comments Not Currently 0 (1 standard drink = 0.6 oz pur e alcohol) Comments No Sex and Gender Information Value Date Recorded Sex Assigned at Not on file Legal Sex Female 5:30 PM BENDING ROLL HAND Gender Identity Not on file Sexual Orientation [...] Description 04/26/2025 10:30 AM CDT Office Visit [facility] - Dermatology [address] [place] [address] 12/06/2025 10:00 AM CDT Office Visit [facility] - GI [address] [place] [address] 01/11/2026 12:00 PM CDT Appointment [facility] CAT SCAN [address] [place] [address] Lissy Yanes, DO [address] [place] [address] 01/11/2026 12:30 PM CDT Office Visit [facility] RAD CSM [address] [place] [address] Lissy Yanes, DO [address] [place] [address] documented as of this encounter Goals Goal Patient Goal Type Associated Problems Recent Progress Patient-Stated? Author Medication Management General On track( 025 3:22 PM CDT) No Samia Rae, RN Note: Expected end date: Ongoing Interventions: Take all medications as prescribed Let your doctor know right away about any changes in your medications Make sure to request a refill of your medication at least one week prior to your last dose Safety General On track( 025 3:22 PM CDT) No Fara Cisneros, RENITA Note: Expected end date: ongoing Interventions: Wear glasses/hearing aid Keep personal items within easy reach Use some light at night in your room documented as of this encounter Visit Diagnoses Not on filedocumented in this encounter Care Teams Manager Consumer Relationship Specialty Start Date End Date Tyrell Castillo DO PCP - General Internal Medicine 05/10/23 03/14/24 Tyrell Castillo DO [address] [place] [id number] PCP - General Internal Medicine 03/15/24 documented as of this encounter
--- OUTSIDE RECORDS SUMMARY | 2025-03-09 01:14 | XMS_ITS | Patient Health Record ---
Author Organization [facility] [employer] Address [address] [place] [address] Care Team Providers Care Button Pusher Name Role Phone Femi Sidhu Unavailable [phone] Reason For Referral No Information Medications Medication SIG (Take, Route, Fr equency, Duration) Notes Start Date End Date Status Nortriptyline HCl 25 MG Oral Active Plan Of Treatment No Information Insurance Providers Payer Name Payer Address Payer Phone Subscriber Number Group Number Insured Name Patient Relationship to Insured Coverage Start Date Coverage End Date [facility] [address] [place] [address] [id number] ISSA MERLOS Self - patient is the insured
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
[2025-03-09] MEDS: TICAGRELOR 90 MG TABLET 180 MG PO (01:49)
[2025-03-09] MEDS: HEPARIN SOD/D5W 100 UNITS/ML 25,000 UNITS/250 ML BAG 8 UNITS IV CONT (01:49)
[2025-03-09] MEDS: ATORVASTATIN 40 MG TABLET 80 MG PO (01:49)
[2025-03-09] MEDS: LACTATED RINGERS 1,000 ML 100 ML IV CONT ×2 (03:56→16:39)
--- NOTE | 2025-03-09 05:07 | PC.NURSE ---
Initial assessment vitals were printed and on chart. As well as pt EKG's.
--- NOTE | 2025-03-09 05:09 | PC.NURSE ---
See paper documentation for medication administration.
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
--- NOTE | 2025-03-09 05:13 | ED_ITS ---
HPI - Chest Pain General Chief Complaint: Chest Pain Stated Complaint: SOB, CHEST PRESSURE, ORAL ABCESS Time Seen by Provider: 03/09/25 04:52 History of Present Illness HPI narrative: This encounter was completed on EMR down time documentation. please refer to the physical paper charts that will be scanned into the records for complete information of the events that occurred in the emergency department 60-year-old female presenting with 2 days of epigastric and retrosternal chest pressure sensation she describes as an elephant sitting on her chest. No exacerbating or alleviating factors. Sensation consult for 2 days associated some nausea. No history of heart attacks to her knowledge. Does not take any cardiac medications to her knowledge. Has a oral communication instructor that has told her she has had a previous heart attack as well as grade 1 diastolic dysfunction but she is not aware of any ongoing coronary disease and does not take any anticoagulants to her knowledge. Patient's EKG concerning for ST-elevation AL in the inferior lateral leads Related Data Home Medications ?Medication ?Instructions ?Recorded ?Confirmed ?Last Taken ?Type nortriptyline 25 mg capsule 25 mg PO QHS 03/24/21 01/29/25 05/03/24 History aspirin 81 mg tablet,delayed 81 mg PO DAILY 04/23/21 01/29/25 04/30/24 History release (Adult Low Dose Aspirin) B-complex with vitamin C 1 tablet PO DAILY 05/17/23 01/29/25 04/30/24 History pantoprazole 20 mg tablet,delayed 20 mg PO QAM 05/17/23 01/29/25 05/02/24 History release (Protonix) oxybutynin chloride 10 mg 10 mg PO DAILY 01/20/24 01/29/25 05/03/24 History tablet,extended release 24 hr Allergies Allergy/AdvReac Type Severity Reaction Status Date / Time latex Allergy Intermediate Swelling Verified 08/10/24 08:56 adhesive tape Allergy Blister Verified 08/10/24 08:56 Review of Systems Review of Systems: As reviewed above in HPI [facility] Past Medical History Medical History Encounter for postoperative care Hallux valgus (acquired), right foot Acquired hallux valgus of left foot Generalized anxiety disorder Acid reflux Seasonal allergies Anxiety Surgical History Surgical History H/O dilation and curettage History of resection of pancreas 2014 [facility], pseudo tumor - benign History of abdominoplasty History of tonsillectomy Family History Family History Mother Ovarian cancer Uterine cancer Social History Social History Smoking packs per day: 0.5 Smoking cigarettes per day: 10.0 Years smoked: 6 Smoking pack-years: 3.00 Smoking status: Former smoker Tobacco type: cigarettes Second hand tobacco smoke exposure: Yes Smoking end date: 04/27/90 Alcohol intake: never Substance use: current Substance use type: marijuana Other substance usage details: Medical marijuana daily Do You Feel Safe in your Home?: Yes Lack of Transportation: No Lack of Food: Never True Current Housing: I Have Housing Concerned About Future Housing: No Difficulty Paying Gas/Electric Bills: No Difficulty Paying for Meds: No Currently Unemployed: No Education: Trade/Vocational Certificate Difficulty w/ Childcare or Family Care: No Living arrangements: with family Spiritual care concerns: No Exam Narrative: GENERAL: [Well-appearing, well-nourished, and in no acute distress.] HEAD: [Normocephalic, atraumatic.] EYES: [PERRLA and EOMI.] ENT: Nares clear, no rhinorrhea or epistaxis. Mucous membranes moist. NECK: Supple. CHEST: [Clear to auscultation. No respiratory distress.] HEART: [Regular rate and rhythm]. No murmur heard. [Normal peripheral pulses.] ABDOMEN: [Soft, nondistended], [nontender], [No rigidity or guarding] EXTREMITIES: Normal range of motion. [No edema.] SKIN: Warm, dry, no rash. NEURO: [No focal deficits]. Alert and oriented [x3.] PSYCH: [Normal mood and affect.] Course Vital Signs Vital signs: Vital Signs Pulse Rate 86 03/09/25 02:00 Pulse Rate 86 03/09/25 02:00 Pulse Oximetry 98 03/09/25 05:01 Oxygen Delivery Room Air 03/09/25 05:03 MDM - Chest Pain MDM Narrative Medical decision making narrative: This encounter was completed on EMR down time documentation. please refer to the physical paper charts that will be scanned into the records for complete information of the events that occurred in the emergency department 60-year-old female presenting with 2 days of epigastric and retrosternal chest pressure sensation she describes as an elephant sitting on her chest. No exacerbating or alleviating factors. Sensation consult for 2 days associated some nausea. No history of heart attacks to her knowledge. Does not take any cardiac medications to her knowledge. Has a oral communication instructor that has told her she has had a previous heart attack as well as grade 1 diastolic dysfunction but she is not aware of any ongoing coronary disease and does not take any anticoagulants to her knowledge. Patient's EKG concerning for ST-elevation AL in the inferior lateral leads. Patient's EKG reviewed and does appear to have 2-[address] elevations in 2 3 AVF and laterally V5 V6. No obvious depressions, Q-waves in the inferior leads as well. Immediately spoke to the on-call coordinator volunteer services Dr. Fajardo who went over the EKGs with me together and is concerned patient has acute coronary syndrome but subacute nature from 2 days ago and this is likely a completed infarct at this time. Recommendations are for aggressive medical management with heparin bolus and heparin drip as well as 180 mg of Brilinta, 80 mg of atorvastatin p.o.. Patient will be admitted to the ICU for potential catheterization procedure. Patient's chest pain and pressure completely resolved upon interventions and repeat EKG done on a short interval was also relayed to the oral communication instructor who states there is no acute interval changes eating emergent catheterization. Spoke to the ICU physician Dr. Beach and the hospitalist Dr. Messina who accepted the patient in the ICU at this time. Medical Records Data Attestation: I reviewed the patient's medical records. Lab Data Attestation: I reviewed the patient's lab results. Imaging Data Attestation: I personally reviewed and interpreted this imaging study as follows: My impression: No acute chest process Critical Care Time Critical Care Time Critical Care Time: Yes Total Critical Care Time: 75 Discharge Plan Discharge Clinical Impression: ACS (acute coronary syndrome) Patient Disposition: Still a Patient Condition: Guarded Prognosis Patient Language: Amharic Prescriptions: No Action nortriptyline 25 mg capsule 25 mg PO QHS aspirin [Adult Low Dose Aspirin] 81 mg tablet,delayed release (DR/EC) 81 mg PO DAILY oxybutynin chloride 10 mg tablet extended release 24hr 10 mg PO DAILY B-complex with vitamin C Tablet 1 tablet PO DAILY pantoprazole [Protonix] 20 mg tablet,delayed release (DR/EC) 20 mg PO QAM sumatriptan succinate 25 mg tablet See Rx Instructions PO .COMPLEX Qty: 9 5RF Rx Instructions: take 1 tab at onset of headache; if no relief may repeat 1 tab after at least 2 hrs; max = 4 tabs/24 hr PO pravastatin 10 mg tablet See Rx Instructions .ROUTE .COMPLEX Qty: 90 2RF Dose Instruction: TAKE 1 TABLET BY MOUTH EVERY DAY Rx Instructions: TAKE 1 TABLET BY MOUTH EVERY DAY albuterol sulfate 90 mcg/actuation HFA aerosol inhaler 2 inh inhalation Q4H MDD 6 puffs PRN (Reason: shortness of breath or wheezing) Qty: 8.5 1RF clonazepam 0.5 mg tablet 0.5 mg PO DAILY PRN (Reason: anxiety) Qty: 30 2RF Follow-up/Referrals: Tyrell Castillo DO [Primary Care Provider] -
[2025-03-09 05:32] LABS: Hematocrit 37.0 % (37.0-47.0); Hemoglobin 12.2 g/dL (12.0-15.0); Immature Granulocyte Percent A 0.3 % (0-0.5); Lymphocytes Absolute Auto 1.44 K/mm3 (0.9-3.2); Mean Corpuscular HGB Conc 33.0 g/dl (32-36); Mean Corpuscular Hemoglobin 29.3 pg (26-34); Mean Corpuscular Volume 88.9 fl (80-100); Nucleated Red Blood Cells Absolute Auto 0.000 K/mm3 (0.0-0.012); Nucleated Red Blood Cells Perc 0.0 % (0.0-0.2); Platelet Count Result 268 k/mm3 (150-375); Red Blood Count 4.16 M/mm3 (4.2-5.4); White Blood Count 12.0 K/mm3 (4.5-10.0)
--- NOTE | 2025-03-09 05:33 | ECG_ITS ---
Test Date: 2025-03-09 01:26:56 Measurements Intervals [place] Rate: 83 P: 76 IL: 143 QRS: 47 QRSD: 96 T: 77 QT: 403 QTc: 475 Interpretive Statements SINUS RHYTHM INFERIOR INFARCT, AGE INDETERMINATE ANTEROLATERAL INFARCT, AGE INDETERMINATE ABNORMAL ECG Compared to ECG 03/09/2025 01:23:48 No significant changes Electronically Signed On 03-09-2025 06:30:27 CDT by Daniel Olmedo D.O.
[2025-03-09 05:35] LABS: INR 1.1; Partial Thromboplastin Time 32.4 Seconds (22.3-36.8); Prothrombin Time 14.6 Seconds (11.1-14.7)
[2025-03-09 05:47] LABS: Lipase 43 U/L (23-300)
[2025-03-09 05:54] LABS: Estimated Glomerular Filt Rate > 60; Troponin I 0.026 ng/mL (0.000-0.034)
--- NOTE | 2025-03-09 06:22 | EST_ITS ---
Patient Info Name: Velia Corcoran Age: 60 years : 1965 Gender: Female Ht: 64 in Wt: 149 lbs BSA: 1.76 m2 HR: 76 bpm BP: 181 / 105 mmHg Exam Date: 03/09/2025 6:22 AM Patient Status: O Admit Date: 03/09/2025 Exam Type: CA stress jorge w NM A regadenoson stress test was performed. Staff Referring Physician: Daniel Olmedo DO Attending Provider: Deyanira Messina DO Exercise Technologist: Graciela Wagoner Exercise Physician: Daniel Olmedo DO Summary 1. 1. Negative lexiscan stress test for ischemic ST changes by ECG criteria. 2. 2. Baseline hypertension. 3. 3. Nuclear scan to follow and will be reported separately. Please correlate with it. 4. 4. Patient informed of the above results. Protocol: Lexiscan Stress ECG Details Stage: REST Duration (min): 2 min : 49 sec HR (bpm): 77 SBP (mmHg): 181 DBP (mmHg): 105 Stage: REST Duration (min): 6 min : 40 sec HR (bpm): 88 SBP (mmHg): 181 DBP (mmHg): 105 Stage: STAGE 1 Duration (min): 1 min : 0 sec HR (bpm): 107 SBP (mmHg): 171 DBP (mmHg): 92 Stage: RECOVERY Duration (min): 1 min : 0 sec HR (bpm): 116 SBP (mmHg): 171 DBP (mmHg): 92 Stage: RECOVERY Duration (min): 2 min : 0 sec HR (bpm): 109 SBP (mmHg): 171 DBP (mmHg): 92 Stage: RECOVERY Duration (min): 3 min : 0 sec HR (bpm): 110 SBP (mmHg): 170 DBP (mmHg): 95 Stage: RECOVERY Duration (min): 4 min : 0 sec HR (bpm): 94 SBP (mmHg): 170 DBP (mmHg): 95 Stage: RECOVERY Duration (min): 5 min : 0 sec HR (bpm): 99 SBP (mmHg): 162 DBP (mmHg): 95 Stage: RECOVERY Duration (min): 5 min : 11 sec HR (bpm): 103 SBP (mmHg): 162 DBP (mmHg): 95 Rest HR: 88 bpm Peak HR: 118 bpm Rest Sys BP: 181 mmHg Peak Sys BP: 171 mmHg Max Pred HR: 159 bpm % Max Pred HR: 74 % Target HR: 135 bpm Max RPP: 20,178 bpm*mmHg Termination Reason: Completed protocol Cardiac Symptoms: Shortness of breath Total Time: 1 min : 0 sec Rest Iniguez BP: 105 mmHg Peak Iniguez BP: 92 mmHg Total Dose: 0.4 mg Resting ECG Sinus rhythm, anterolateral infarct, inferior infarct, age indeterminate. Stress ECG No ST changes. Arrhythmias None. Report Signatures
[2025-03-09 06:28] LABS: Troponin I 0.022 ng/mL (0.000-0.034)
[2025-03-09 06:51] LABS: Alanine Aminotransferase 13 U/L (6-35); Albumin Level 4.9 g/dL (3.5-5.1); Alkaline Phosphatase 85 U/L (38-126); Anion Gap 13 mmol/L (4-12); Aspartate Amino Transferase 32 U/L (14-36); Bilirubin,Total 1.3 mg/dL (0.2-1.3); Blood Urea Nitrogen 9 mg/dL (7-17); Calcium 10.0 mg/dL (8.4-10.2); Carbon Dioxide 20 mmol/L (22-30); Chloride 107 mmol/L (98-107); Estimated CRCL calculation 58 ml/min; Glucose 102 mg/dL (65-110); NT Pro B Type Natriuretic Pept 1270 pg/mL (19.9-100); Potassium 4.4 mmol/L (3.4-5.0); Sodium 140 mmol/L (137-145); Total Protein 8.3 g/dL (6.3-8.2)
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
--- NOTE | 2025-03-09 08:30 | ADMGEN ---
This patient, Velia Corcoran, was admitted to Intensive Care Unit-1 on 03/09/25 at 0420. Patient/family oriented to hospital policies and general routines including ID bracelet, bed and alarms, visiting hours, pain management, procedures, bathroom and other care routines, personal items, smoking policy, room service/diet, and visiting hours. Information on how to activate the Rapid Response Team has been discussed. Patient/Family are encouraged to report perceived risks to care and to ask questions if they do not understand what they are told or what they should do.
[2025-03-09] MEDS: ONDANSETRON INJ 4 MG/2 ML VIAL IV PUSH (08:56)
--- NOTE | 2025-03-09 10:18 | PC.NURSE ---
Patient to cardiac stress test @ 1015 via wheelchair.
--- NOTE | 2025-03-09 12:18 | PM.IMPN ---
Progress Note: A&P Assessment and Plan (1) Chest pain: Qualifiers: Chest pain type: unspecified Qualified Code(s): R07.9 - Chest pain, unspecified Code(s): R07.9 - Chest pain, unspecified Status: Acute Assessment and Plan: Troponins were negative x2, EKG review - Given the patient's degree of anxiety and acute grieving, suspect complicated grieving is playing a component in the patient's symptomatology. Other causes for symptoms could also be due to GERD. -appreciate cardiology evaluation and recommendation, ruled out for acute [place] by serial troponin EKG -likely due to heat exhaustion per Cardiology -heparin drip was discontinued per Cardiology -cardiology ordered Lexiscan stress test and echocardiogram (2) Generalized anxiety disorder: Code(s): F41.1 - Generalized anxiety disorder Status: Acute Assessment and Plan: Continue prior to admission medication (3) Palpitations: Code(s): R00.2 - Palpitations Status: Acute Assessment and Plan: Likely related to anxiety (4) GERD (gastroesophageal reflux disease): Qualifiers: Esophagitis presence: esophagitis presence not specified Qualified Code(s): K21.9 - Gastro-esophageal reflux disease without esophagitis Code(s): K21.9 - Gastro-esophageal reflux disease without esophagitis Status: Acute Assessment and Plan: Continue proton Plan DVT prophylaxis: SCDs Stress ulcer prophylaxis: Protonix Nutrition: Heart healthy diet Code Status: Full code Due to a high probability of clinically significant, life threatening deterioration, the patient required my highest level of preparedness to intervene emergently and I personally spent this critical care time directly and personally managing the patient. This critical care time included obtaining a history; examining the patient; pulse oximetry; ordering and review of studies; arranging urgent treatment with development of a management plan; evaluation of patient's response to treatment; frequent reassessment; and discussions with other providers. It was exclusive of separately billable procedures and treating other patients and teaching time. Please see Assessment and Plan section and the rest of the note for further information on patient assessment and treatment This dictation may have been done utilizing a voice recognition system. Attempts have been made to correct errors. However, there may be uncorrected grammatical, spelling, and recognitions errors present. Subjective Date/time seen: 03/09/25 12:18 Interval history: 60-year-old female with past medical history of dyslipidemia, fibromyalgia, bipolar, depression/anxiety presented with dry he is in chest pressure for 2 days while gardening. She also complained of nausea. She was recently diagnosed by vascular surgery. See [facility] with nutcracker syndrome and had embolized per patient in feels better. She also has a history of dyspnea on exertion and chest pressure for years, along with palpitations and panic attacks. She feels fatigued all the time. In the ER troponins were 0.026, repeat troponin 0.022, proBNP of 1270. EKG in the ER showed ST elevations in leads 2, 3 and AVF and laterally in V5 and V6. Cardiology evaluate the EKG and dark in his likely completed infarct at this time, and was started on medical management with heparin, Brilinta, atorvastatin, aspirin. Patient was transferred to the ICU for further management ----Patient being seen for hospitalist group---- Patient denies any chest pain, shortness on breath, abdominal pain. Complain of some nausea this morning and swelling of her left side of the face likely due to tooth abscess for which she has to see a dentist but could not get an appointment soon Review of Systems Review of Systems: 12 systems were reviewed with pertinent positives and negatives per HPI. Except as documented in the HPI, all other systems were reviewed and are negative. Exam Narrative: General: Pleasant female in no acute distress HEENT:? Left-sided facial swelling and tenderness Neck:? No lymphadenopathy Respiratory:? Clear to auscultation bilateral Cardiac:? S1-S2 is normal, regular rate and rhythm Abdomen:? Soft, nontender, nondistended, normoactive bowel sounds Extremities:? Trace edema, palpable pedal pulses Neuro:? Patient is awake, alert, oriented x3, nonfocal Skin:? Warm and dry, no lesions noted Psych:? Anxious, otherwise normal mentation Objective Data Vital Signs Vital Signs: Vital Signs - 24 hr 03/09/25 01:26 03/09/25 01:30 03/09/25 02:00 Temperature Pulse Rate 86 83 86 Respiratory Rate 11 L 12 Blood Pressure 146/97 H 137/99 H Pulse Oximetry 98 97 Oxygen Delivery 03/09/25 02:00 03/09/25 02:30 03/09/25 04:20 Temperature 98.5 F Pulse Rate 84 83 78 Respiratory Rate 13 16 14 Blood Pressure 163/102 H 149/92 H 187/96 H Pulse Oximetry 99 98 99 Oxygen Delivery 03/09/25 04:20 03/09/25 05:01 03/09/25 05:03 Temperature Pulse Rate Respiratory Rate Blood Pressure Pulse Oximetry 98 Oxygen Delivery Room Air Room Air Room Air 03/09/25 06:00 03/09/25 08:00 03/09/25 08:00 Temperature 98.5 F 98.4 F Pulse Rate 85 88 93 Respiratory Rate 22 H 11 L Blood Pressure 156/98 H 154/102 H Pulse Oximetry 99 99 Oxygen Delivery 03/09/25 10:00 03/09/25 10:00 03/09/25 12:00 Temperature 98.3 F Pulse Rate 78 86 83 Respiratory Rate 16 20 Blood Pressure 164/102 H 171/97 H Pulse Oximetry 99 99 Oxygen Delivery Intake/Output Intake/Output: Intake & Output 03/06/25 03/07/25 03/08/25 03/09/25 23:59 23:59 23:59 23:59 Intake Total 664.1 Output Total 1050 Balance -385.9 Meds/Results Medications: Active Medications Generic Name Dose Route Start Last Admin Trade Name Freq PRN Reason Stop Dose Admin Acetaminophen 650 mg 03/09/25 03:01 Acetaminophen 325 Mg Tablet PO Q6H PRN Mild Pain (1-3) or Fever Amoxicillin/Clavulanate Potassium 1 tablet 03/09/25 10:15 Amoxicillin/Clavulanate K 875-125 Mg Tab PO Q12HR DIMITRIOS Lactated Ringer's 1,000 mls @ 100 mls/hr 03/09/25 03:01 03/09/25 10:00 Lr - Lactated Ringers Iv IV CONT 0 mls/hr .Q10H DIMITRIOS Infusion Nitroglycerin 0.4 mg 03/09/25 03:01 Nitroglycerin Sl 0.4 Mg Tablet SUBLINGUAL Q5M PRN Chest Pain Ondansetron HCl 4 mg 03/09/25 03:01 03/09/25 08:56 Ondansetron Inj 4 Mg/2 Ml Vial IV PUSH 4 mg Q4H PRN Administration Nausea And Vomiting Pantoprazole Sodium 40 mg 03/09/25 09:00 Pantoprazole 40 Mg Tablet PO QAM DIMITRIOS Perflutren Lipid Microsphere 0 ml 03/09/25 06:21 Perflutren Lipid Microspheres 1.5 Ml Vial Diluted To 10 Ml Total Volume IV PUSH 03/12/25 06:21 ONCE PRN adequate visualization Protocol Radiology Results: ITS Impressions Chest X-Ray 03/09/25 06:15 IMPRESSION: 1: NO ACUTE CARDIOPULMONARY DISEASE. Labs Labs: Laboratory Results - last 24 hr 03/09/25 03/09/25 01:41 05:35 WBC 12.0 H RBC 4.16 L Hgb 12.2 Hct 37.0 MCV 88.9 MCH 29.3 MCHC 33.0 RDW 13.3 Plt Count 268 MPV 9.1 Immature Gran % (Auto) 0.3 Neut % (Auto) 79.7 H Lymph % (Auto) 12.0 L [place] % (Auto) 7.0 Eos % (Auto) 0.5 Baso % (Auto) 0.5 Lymph # (Auto) 1.44 [place] # (Auto) 0.8 H Eos # (Auto) 0.1 Baso # (Auto) 0.1 Abs Immat Gran (auto) 0.04 H Absolute Neuts (auto) 9.5 H Absolute Nucleated RBC 0.000 Nucleated RBC % 0.0 PT 14.6 INR 1.1 APTT 32.4 Sodium 140 Potassium 4.4 Chloride 107 Carbon Dioxide 20 L Anion Gap 13 H BUN 9 D Creatinine 0.84 Estim Creat Clear Calc 58 Estimated GFR > 60 Glucose 102 Lactic Acid 0.9 Calcium 10.0 Total Bilirubin 1.3 AST 32 ALT 13 Alkaline Phosphatase 85 Troponin I 0.026 0.022 NT-Pro-B Natriuret Pep 1270 H Total Protein 8.3 H Albumin 4.9 Lipase 43 Blood Type A Negative Antibody Screen Negative Quality VTE Prophylaxis VTE prophylaxis: pharmacologic ordered (Heparin drip per protocol)
--- NOTE | 2025-03-09 12:20 | PC.NURSE ---
Return from cardiac stress test @ 1210 via wheelchair to ICU-1.
[2025-03-09] MEDS: METOPROLOL TARTRATE 25 MG TABLET PO ×2 (14:16→20:22)
--- OUTSIDE RECORDS SUMMARY | 2025-03-09 14:27 | XMS_ITS | Clinical Summary ---
Author Organization [facility] Address [address] [place] [address] Care Team Providers Care Employment Trainer Name Role Phone Tyrell Castillo DO Primary Care Provider [phone] Source Comments [facility],non-[facility] Affiliates and Associated Physician Practices is amultiple site organization consisting of ambulatory clinics and hospital sitesin [place], [place], [place] and [place]. This disclosure is being madepursuant to the Care Everywhere program and may not contain all information available regarding this patient. Last updated 18.[facility] Allergies Active Allergy Reactions Criticality Noted Date [...] Office Visit [facility] - Dermatology [address] [place] [phone] Follow-up examination (Primary Dx); Hypertrophic scar 02/27/2025 Travel 01/12/2025 3:00 PM CDT Office Visit [facility] [address] [facility] [place] [address] Lissy Yanes DO Pelvic congestion syndrome (Primary Dx); Varicose veins of bilateral lower extremities with other complications 01/12/2025 Travel 12/27/2024 11:44 AM CDT - 12/27/2024 6:00 PM CDT Hospital Encounter [facility] [address] [place] [phone] Ruben Reyes MD [facility] Discharge Disposition: Home or Self Care 12/27/2024 Travel 12/20/2024 10:00 AM CDT Office Visit [facility] - Dermatology [address] [place] [phone] Shant Green MD Scar (Primary Dx); Multiple benign nevi of upper extremity, lower extremity, and trunk 12/20/2024 Travel 12/19/2024 Travel 12/19/2024 Telephone [facility] [address] [place] [phone] Taty Nair, RN Appointment (RN called patient to set up apt for gonodal vein embolization, no answer, left message offered 12/25/24 0745, 12/27/24 1130, or 12/28/24 0645. 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 Gender Identity Not on file Sexual Orientation [...] Visit [facility] Dermatology [address] [facility] [place] [address] 12/06/2025 10:00 AM CDT Office Visit [facility] - GI [address] [facility], [facility] [place] [address] 01/11/2026 12:00 PM CDT Appointment [facility] CAT SCAN [address] [place] [address] Lissy Yanes, DO [address] [place] [address] 01/11/2026 12:30 PM CDT Office Visit [facility] C[facility] [address] [facility], [place] [address] Lissy Yanes DO [address] [place] [address] Health Maintenance Due Date Last Done Comments [...] your room Medical Devices Implanted Type Area Driver Salesman Device Identifier Shelf Expiration Date Model / Serial / Lot Coil Pod 60cm 10-12mm Emb-12/27/2024 Implanted:Qty: 1 on 12/27/2024 by Lissy Yanes DO Left: Vein [employer] 04/13/2029 [id number] / / [id number] Description:Implanted in Lef t Gonadal Vein Coil Pod 60cm Pk [facility]-12/27/2024 Implanted:Qty: 1 on 12/27/2024 by Lissy Yanes DO Left: Vein [employer] 04/29/2032 [id number] / / [id number] Description:Coil located in Left Gonadal Vein Coil Pod 60cm Pk Emb J-t [facility]-12/27/2024 Implanted:Qty: 1 on 12/27/2024 by Lissy Yanes DO Left: [employer] 04/29/2032 [id number] / / [id number] Description:Implanted in Lef t G[place]adal Vein Coil Zully Pod 30cm 5mm Cmplx Occulusion-2024 Implanted:Qty: 1 on 12/27/2024 by Lissy Yanes DO Left: Vein [employer] 07/30/2032 [id number] / / [id number] Description:Implanted in Lef t [place]adal Vein Coil Penumbra Coil 400 Zully 30cm .02in 5-12/27/2024 Implanted:Qty: 1 on 12/27/2024 by Lissy Yanes DO Left: Vein [employer] 11/16/2029 [id number] / / [id number] Description:Implanted in lef t Gonadal Vein Coil Pod 30cm Pk Embl J-Sft Strl Lf-12/27/2024 Implanted:Qty: 1 on 12/27/2024 by Lissy Yanes DO Left: Vein [employer] 05/15/2031 [id number] / / [id number] Description:Implanted in lef t [place]adal Vein Coil Zully Pod 50cm 6mm Cmplx Embl-12/27/2024 Implanted:Qty: 1 on 12/27/2024 by Lissy Yanes DO Left: Vein [employer] 03/05/2032 [id number] / / [id number] Description:Implanted in Lef t Gonadal Vein Procedures Procedure Name Priority Date/Time Associated Diagnosis Comments TRIAMCINOLON ACETONID NOS 10 MG INJ Routine 02/28/2025 11:46 AM CDT Hypertrophic scar MI INTRALESIONAL INJECTION(S) 7 OR LESS Routine 02/28/2025 11:46 AM CDT Hypertrophic scar IR EMBOLIZATION TRANSCATH THPY Routine 12/27/2024 4:48 PM CDT Pelvic congestion syndrome CBC W AUTO DIFFERENTIAL STAT 12/27/2024 12:58 PM CDT Pelvic congestion syndrome BASIC METABOLIC PANEL (CALCIUM TOTAL) STAT 12/27/2024 12:58 PM CDT Pelvic congestion syndrome PT-INR STAT 12/27/2024 12:58 PM CDT Pelvic congestion syndrome MI INTRALESIONAL INJECTION(S) 7 OR LESS Routine 12/20/2024 10:53 AM CDT Scar ENDOSCOPY, COLON, SCREENING Routine 02/16/2024 1:26 PM CDT HEPATITIS C AB SCREEN RFLX NAAT QUANT STAT 02/23/2020 8:03 PM CDT HIV-1 HIV-2 ANTIGEN/ANTIBODY STAT 02/23/2020 8:03 PM CDT from Last 3 Months or Most Recently Relevant to Health Maintenance Results * MI INTRALESIONAL INJECTION(S) 7 OR LESS, TRIAMCINOLON ACETONID [...] evaluation, please review the evaluation forms in [facility]. For details on monitored clinical parameters during the intra-service sedation time, please review the procedure nurse documentation in [facility]. Report dictated by Suri Vasquez MD (secretary to the vice president). ILissy MD have personally reviewed and interpreted this examination/study. > Interpreting Provider: Lissy Yanes MD on 12/28/2024 8:31 AM Narrative 12/28/2024 8:31 AM CDT PROCEDURE: IR EMBOLIZATION TRANSCATH THPY, DATE/TIME OF EXAM: 12/27/2024 5:21 PM, LOCATION [facility] History: 59 year old female with a [...] After a series of exchanges, an 6 Salvadorean vascular sheath was placed. The left renal vein was selected with a 5 Salvadorean MPA catheter and a venogram was obtained demonstrating patent left renal vein. The left gonadal vein then selectively catheterized with a 5 Fr MPA catheter and a venogram was obtained, demonstrating prominent gonadal vein and parauterine veins. The 5 Salvadorean MPA catheter was exchanged for 5 Salvadorean Nikki balloon. Balloon occlusion venogram was performed, demonstrating opacification of an enlarged left gonadal vein and parauterine veins. Due to catheter/microcatheter incompatibility, over an 035 Sow wire, the system was exchanged for an 8 Salvadorean vascular sheath and a 7 Salvadorean Nikki balloon. Balloon occlusion venogram was performed again, verifying catheter positioning. 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 The patient tolerated the procedure well [...] DATE/TIME OF EXAM: 12/27/2024 5:21 PM, LOCATION [facility] History: 59 year old female with a [...] After a series of exchanges, an 6 Salvadorean vascular sheath was placed. The left renal vein was selected with a 5 Salvadorean MPA catheter and a venogram was obtained demonstrating patent left renal vein. The left gonadal vein then selectively catheterized with a 5 Fr MPA catheter florentin venogram was obtained, demonstrating prominent gonadal vein andparauterine veins. The 5 Salvadorean MPA catheter was exchanged for 5 Salvadorean Nikki balloon. Balloon occlusion venogram was performed, demonstrating opacification of an enlarged left gonadal vein and parauterine veins.Due to catheter/microcatheter incompatibility, over an 035 Sow wire, the system was exchanged for an 8 Salvadorean vascular sheath and a 7 FrenchFogarty balloon. Balloon occlusion venogram was performed again, verifyingcatheter positioning. A 2.8 Salvadorean Progreat was then advanced through the Nikki [...] the procedure well [facility]. There were [...] intravenously in my presence, and monitored [facility] as an independent trained observer who [...] evaluation, please review the evaluation forms in [facility]. For details on monitored clinical parameters during the intra-service sedation time, please review the procedure nurse documentation in [facility]. Report dictated by Suri Vasquez MD (secretary to the vice president). ILissy MD have personally reviewed and interpreted this examination/study. > Interpreting Provider: Lissy Yanes MD on 12/28/2024 8:31 AM us Ruben Reyes MD IR ORDERABLES Final Resu lt * PT-INR (12/27/2024 12:58 PM CDT) PT 12.7 12.1 - 14.8 sec 12/27/2024 1:45 PM CDT [facility] INR 0.9 0.9 - 1.1 12/27/2024 1:45 PM CDT [facility] Blood BLOOD SPECIMEN / Unknown Venipuncture / Unknown 12/27/2024 12:58 PM CDT 12/27/2024 1:06 PM CDT Narrative [facility] - 12/27/2024 1:45 PM CDT Conventional Warfarin Anticoagulant Therapy: INR Reference Range: 2.0-3.0 Intensive Warfarin Anticoagulant Therapy: INR Reference Range: 2.5-3.5 us Ruben Reyes MD LAB - COAGULATION ORDERABL ES Final Result [facility] [address] [place] [address] * CBC W AUTO DIFFERENTIAL (12/27/2024 12:58 PM CDT) WBC 5.3 4.0 - 10.7 x10E9/L 12/27/2024 1:22 PM CDT [facility] RBC Count 4.79 3.90 - 5.20 x10E12/L 12/27/2024 1:22 PM CDT [facility] Hemoglobin 13.9 11.9 - 15.8 g/dL 12/27/2024 1:22 PM CDT [facility] Hematocrit 43.2 34.8 - 46.1 % 12/27/2024 1:22 PM CDT [facility] MCV 90.2 80.0 - 98.0 fL 12/27/2024 1:22 PM CDT [facility] MCH 29.0 26.7 - 33.6 pg 12/27/2024 1:22 PM CDT [facility] MCHC 32.2 31.7 - 36.3 g/dL 12/27/2024 1:22 PM CDT [facility] RDW-CV 13.0 11.3 - 14.8 % 12/27/2024 1:22 PM CDT [facility] Platelet Count 314 150 - 420 x10E9/L 12/27/2024 1:22 PM CDT [facility] MPV 9.0 7.8 - 11.4 fL 12/27/2024 1:22 PM CDT [facility] Neutrophil % 52.3 41.0 - 74.0 % 12/27/2024 1:22 PM CDT [facility] Lymphocyte % 33.7 17.0 - 47.0 % 12/27/2024 1:22 PM CDT [facility] Monocyte % 8.3 3.0 - 11.0 % 12/27/2024 1:22 PM CDT [facility] Eosinophil % 4.4 0.0 - 7.0 % 12/27/2024 1:22 PM CDT [facility] Basophil % 1.1 0.0 - 1.6 % 12/27/2024 1:22 PM CDT [facility] Immature Granulocytes % 0.2 0.0 - 1.0 % 12/27/2024 1:22 PM CDT [facility] Neutrophil Absolute 2.76 1.60 - 7.50 x10E9/L 12/27/2024 1:22 PM CDT [facility] Lymphocyte Absolute 1.78 1.00 - 4.40 x10E9/L 12/27/2024 1:22 PM CDT [facility] Monocyte Absolute 0.44 0.15 - 1.00 x10E9/L 12/27/2024 1:22 PM CDT [facility] Eosinophil Absolute 0.23 0.00 - 0.60 x10E9/L 12/27/2024 1:22 PM CDT [facility] Basophil Absolute 0.06 0.00 - 0.13 x10E9/L 12/27/2024 1:22 PM CDT [facility] Blood BLOOD SPECIMEN / Unknown Venipuncture / Unknown 12/27/2024 12:58 PM CDT 12/27/2024 1:06 PM CDT us Lissy Farzana DO LAB - HEMATOLOGY ORDERABLES Christina l Result [facility] [address] [place] [address] * (ABNORMAL) BASIC METABOLIC PANEL (CALCIUM TOTAL) (12/27/2024 12:58 PM CDT) [facility] Glucose 88 70 - 99 mg/dL 12/27/2024 1:34 PM CDT [facility] Sodium 142 136 - 145 mmol/L 12/27/2024 1:34 PM CDT [facility] Potassium 3.9 3.5 - 5.1 mmol/L 12/27/2024 1:34 PM CDT [facility] Chloride 107 98 - 107 mmol/L 12/27/2024 1:34 PM CDT [facility] CO2 27 22 - 29 mmol/L 12/27/2024 1:34 PM CDT [facility] Calcium 10.3 8.4 - 10.4 mg/dL 12/27/2024 1:34 PM CDT [facility] Anion Gap 8 6 - 16 mmol/L 12/27/2024 1:34 PM CDT [facility] BUN 12 7 - 26 mg/dL 12/27/2024 1:34 PM CDT [facility] Creatinine 0.93 0.57 - 1.11 mg/dL 12/27/2024 1:34 PM CDT [facility] eGFR by CKD-EPI 70(L) >=90 mL/min/1.7 3 m2 12/27/2024 1:34 PM CDT [facility] Blood BLOOD SPECIMEN / Unknown Venipuncture / Unknown 12/27/2024 12:58 PM CDT 12/27/2024 1:06 PM CDT us Lissy Farzana DO LAB - CHEMISTRY ORDERABLES Final Result Performing Organization Address City/State/[facility] de Phone Number [facility] [address] [place], [place] [id number] * MI INTRALESIONAL INJECTION(S) 7 OR LESS (12/20/2024 10:53 [...] a 30 gauge needle. Ashwini Bolivar M.D. [facility] Dermatology Resident Shant Green MD PROCEDURE/MINOR SURGICAL ORDER JESUS Final Result * Endoscopy, Colon, Screening (02/16/2024 1:26 PM CDT) Report Endoscopy POC Endoscopy Department Report _ Patient Name: Velia Corcoran Procedure Date: 02/16/2024 1:26 PM Date of : 1965 Classification: Outpatient Gender: Female Ethnicity: Not or Race: White _ Providers: [facility]MD Referring MD: Tyrell Castillo (Referring MD) Procedure: [...] bowel preparation was evaluated using the BBPS (Hackberry Bowel Preparation Scale) with scores of: Right [...] non-reyez portions. Procedure Code(s): --- Professional --- 95430, Colonoscopy, flexible; with removal of tumor(s), polyp(s), or other lesion(s) by snare technique Diagnosis Code(s): --- Professional --- Z86.010, Personal history of colonic polyps D12.7, Benign neoplasm of rectosigmoid junction K64.1, Second degree hemorrhoids K64.4, Residual hemorrhoidal skin tags CPT copyright 2021 [employer]. All rights reserved. The codes documented in this report are preliminary and upon technical operations specialist review may be revised to meet current compliance requirements. Taty Toussaint MD ([place]) 02/16/2024 3:00:29 PM Note Initiated On: 02/16/2024 1:26 PM Number of Addenda: [address] [id number] [place] [address] 02/16/2024 1:26 PM CDT Taty Toussaint MD GI PROCEDURE ORDERABLES E dited Result - Final Performing Organization Address [facility]/ZIP Co de Phone Number [facility] * HIV-1 HIV-2 ANTIGEN/ANTIBODY (02/23/2020 8:03 PM CDT) Pathologist [facility] HIV Antigen/Antibod y 1 & 2 Non-reacti ve Non-react starla 02/23/2020 9:07 PM CDT [facility] Comment:Neither HIV-1 p24 An tigen nor HIV-1/HIV-2 Antibodies are detected. Blood BLOOD SPECIMEN / Unknown Venipuncture / Unknown 02/23/2020 8:03 PM CDT 02/23/2020 8:25 PM CDT us Jimmy Rice MD LAB - HEMATOLOGY ORDERABLES F inal Result Performing Organization Address City/[facility]/ZIP Co de Phone Number [address] [address], [facility] [phone] * HEPATITIS C AB SCREEN RFLX NAAT QUANT (02/23/2020 8:03 PM CDT) Hepatitis C Antibody Non-react starla Non-reac tive 02/23/2020 9:12 PM CDT [facility] Comment:Hepatitis C Antibody screen indicates no [...] MD LAB - CHEMISTRY ORDERABLES nal Result [address] [address], [facility] [phone] from Last 3 Months or Most Recently Relevant to Health Maintenance Insurance [facility] Care Teams Employment Trainer Relationship Specialty Start Date End Date Tyrell Castillo DO [address] [place] [phone] PCP - General Internal Medicine 03/15/24
--- OUTSIDE RECORDS SUMMARY | 2025-03-09 14:27 | XMS_ITS | Encounter Summary ---
Author Organization [facility] Address [address] [place] [address] Care Team Providers Care Cargo Operations Agent Name Role Phone Tyrell Castillo DO Primary Care Provider [phone] Tyrell Castillo DO Primary Care Provider [phone] Encounter Details Date Type Department Care Team (Late st Contact Info) Description 12/07/2023 Telephone [facility] - Dermatology [address] [place] [address], [facility] [place] [address] Shant Green MD [address] [place] [address] 3 [place] [address] Social History Tobacco Use Types Packs/Day Years Used Date Smoking Tobacco: Former Cigarettes Q uit: 08/09/1989 Smokeless Tobacco: Never Alcohol Use Standard Drinks/Week Comments Not Currently 0 (1 standard drink = 0.6 oz pur e alcohol) Comments No Sex and Gender Information Value Date Recorded Sex Assigned at Not on file 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 [address] [place] [address] Lissy Yanes, DO [address] [place] [address] 01/11/2026 12:30 PM CDT Office Visit [facility] [address] [place] [address] Lissy Yaens, DO [address] [place] [address] documented as of this encounter Goals Goal [...] on filedocumented in this encounter Care Teams Cargo Operations Agent Relationship Specialty Start Date End Date Tyrell Castillo DO PCP - General Internal Medicine 05/10/23 03/14/24 Tyrell Castillo DO [address] [place] [phone] PCP - General Internal Medicine 03/15/24 documented as of this encounter
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
--- NOTE | 2025-03-09 18:30 | PC.NURSE ---
Report given to RENITA Fang on medical @ 1830. Pt off unit with all appropriate belongings and documentation @ 4391
--- NOTE | 2025-03-09 18:48 | PC.NURSE ---
This patient, Velia Corcoran, was received from ICU/1 on 03/09/25 at 1848. Patient/family oriented to unit policies and routines.
[2025-03-09] MEDS: ACETAMINOPHEN 325 MG TABLET 650 MG PO (20:23)
[2025-03-09] MEDS: NORTRIPTYLINE HCL 25 MG CAPSULE PO (20:23)
[2025-03-10] MEDS: LACTATED RINGERS 1,000 ML 100 ML IV CONT (03:23)
[2025-03-10 06:42] VITALS: BP 150/90; PULSE 65; RESP 20; TEMP 37; O2SAT 99
--- NOTE | 2025-03-10 08:20 | P.PNCA_ITS ---
Progress Note: A&P Assessment and Plan (1) Chest pain: Code(s): R07.9 - Chest pain, unspecified Status: Acute Assessment and Plan: Resolved. Probably due to heat exhaustion. She has been r/o for acute KS by ser ial troponin and EKG. 03/09/25 Lexiscan myoview: Negative. 03/09/25 Echo unremarkable. May d/c home from cardiology standpoint. (2) Dyslipidemia: Code(s): E78.5 - Hyperlipidemia, unspecified Status: Acute Assessment and Plan: On Pravastatin. (3) Anxiety: Code(s): F41.9 - Anxiety disorder, unspecified Status: Acute (4) BP (high blood pressure): Code(s): I10 - Essential (primary) hypertension Status: Acute Assessment and Plan: Could be that she is not on Kloponin while hospitalized. She was started on Metoprolol Tartate 25 mg BID. If BP resolves at home she may stop taking it. Subjective Date/time seen: 03/10/25 08:20 Interval history: No more chest pain or sob. Exam Const: General: cooperative, healthy appearing and comfortable Orientation/consciousness: oriented to person, oriented to place and oriented to time Resp: Auscultation: clear to auscultation bilaterally, no crackles, no rales, no rhonchi and no wheezes Cardio: Rate: regular rate Rhythm: regular rhythm Heart sounds: no murmurs Peripheral pulses: dorsalis pedis present Neuro: General: oriented to person, oriented to place and oriented to time Extrem: Right lower extremity: no edema Left lower extremity: no edema Objective Data Vital Signs Vital Signs: Vital Signs - 24 hr 03/09/25 10:00 03/09/25 10:00 03/09/25 12:00 Temperature 98.3 F Pulse Rate 78 86 83 Respiratory Rate 16 20 Blood Pressure 164/102 H 171/97 H Pulse Oximetry 99 99 03/09/25 12:00 03/09/25 14:00 03/09/25 14:16 Temperature Pulse Rate 81 77 94 Respiratory Rate Blood Pressure Pulse Oximetry 03/09/25 15:56 03/09/25 20:22 03/09/25 22:13 Temperature 98.3 F 98.1 F Pulse Rate 62 64 68 Respiratory Rate 22 H 20 Blood Pressure 152/83 H 138/98 H Pulse Oximetry 98 100 03/10/25 06:42 Temperature 98.6 F Pulse Rate 65 Respiratory Rate 20 Blood Pressure 150/90 H Pulse Oximetry 99 Intake/Output Intake/Output: Intake & Output 03/07/25 03/08/25 03/09/25 03/10/25 23:59 23:59 23:59 23:59 Intake Total 1057.4 1000 Output Total 1200 Balance -142.6 1000 Meds/Results Medications: Active Medications Generic Name Dose Route Start Last Admin Trade Name Freq PRN Reason Stop Dose Admin Acetaminophen 650 mg 03/09/25 03:01 03/09/25 20:23 Acetaminophen 325 Mg Tablet PO 650 mg Q6H PRN Administration Mild Pain (1-3) or Fever Albuterol 2 puff 03/09/25 12:36 Albuterol Sulfate (*Sp) Aerosol 1 Puff INHALATION Q4H PRN shortness of breath or wheezing Amoxicillin/Clavulanate Potassium 1 tablet 03/09/25 10:15 03/09/25 20:23 Amoxicillin/Clavulanate K 875-125 Mg Tab PO 1 tablet Q12HR DIMITRIOS Administration Aspirin 81 mg 03/10/25 09:00 Aspirin 81 Mg Enteric Tablet PO DAILY DIMITRIOS Clonazepam 0.5 mg 03/09/25 12:36 Clonazepam (*Crx) 0.5 Mg Tablet PO DAILY PRN anxiety Hydralazine HCl 10 mg 03/09/25 12:38 Hydralazine Hcl 20 Mg/Ml Vial IV PUSH Q4H PRN Blood Pressure - High Lactated Ringer's 1,000 mls @ 100 mls/hr 03/09/25 03:01 03/10/25 03:23 Lr - Lactated Ringers Iv IV CONT 100 mls/hr .Q10H DIMITRIOS Administration Metoprolol Tartrate 25 mg 03/09/25 21:00 03/09/25 20:22 Metoprolol Tartrate 25 Mg Tablet PO 25 mg Q12HR DIMITRIOS Administration Nitroglycerin 0.4 mg 03/09/25 03:01 Nitroglycerin Sl 0.4 Mg Tablet SUBLINGUAL Q5M PRN Chest Pain Nortriptyline HCl 25 mg 03/09/25 21:00 03/09/25 20:23 Nortriptyline Hcl 25 Mg Capsule PO 25 mg QHS DIMITRIOS Administration Ondansetron HCl 4 mg 03/09/25 03:01 03/09/25 08:56 Ondansetron Inj 4 Mg/2 Ml Vial IV PUSH 4 mg Q4H PRN Administration Nausea And Vomiting Oxybutynin Chloride 10 mg 03/10/25 09:00 Oxybutynin Chloride Xl 5 Mg Tab.Er.24 PO DAILY [facility] Pantoprazole Sodium 40 mg 03/09/25 09:00 03/09/25 09:00 Pantoprazole 40 Mg Tablet PO Not Given QAM [facility] Perflutren Lipid Microsphere 0 ml 03/09/25 06:21 Perflutren Lipid Microspheres 1.5 Ml Vial Diluted To 10 Ml Total Volume IV PUSH 03/12/25 06:21 ONCE PRN adequate visualization Protocol Sumatriptan Succinate 25 mg 03/09/25 12:36 Sumatriptan Succinate 25 Mg Tablet PO PRN PRN MIGRAINE HEADACHE Vitamin B Complex/Vitamin C 1 each 03/10/25 09:00 Vitamin B Complex/Vit C Capsule PO DAILY [facility] Radiology Results: ITS Impressions Chest X-Ray 03/09/25 06:15 IMPRESSION: 1: NO ACUTE CARDIOPULMONARY DISEASE. Lexiscan Stress Test 03/09/25 13:28 IMPRESSION: 1. No definite ischemia or infarct. 2. Normal left ventricular ejection fraction measuring 81%.
[2025-03-10 09:19] VITALS: PULSE 77
[2025-03-10] MEDS: oxyBUTYnin CHLORIDE XL 5 MG TAB.ER.24 10 MG PO (09:19)
[2025-03-10] MEDS: ASPIRIN 81 MG ENTERIC TABLET PO (09:19)
[2025-03-10] MEDS: VITAMIN B COMPLEX/VIT C CAPSULE 1 EACH PO (09:19)
[2025-03-10] MEDS: METOPROLOL TARTRATE 25 MG TABLET PO (09:19)
[2025-03-10] MEDS: PANTOPRAZOLE 40 MG TABLET PO (09:20)
--- NOTE | 2025-03-10 11:19 | PM.DS ---
DS: Admitting Diagnosis Discharge Date 03/10/2025 Admitting Diagnosis chest pain, heat exhaustion DS: Discharge Diagnosis Discharge Diagnosis (1) Chest pain: Qualifiers: Chest pain type: unspecified Qualified Code(s): R07.9 - Chest pain, unspecified Code(s): R07.9 - Chest pain, unspecified Status: Acute Assessment and Plan: Troponins were negative x2, EKG review - Given the patient's degree of anxiety and acute grieving, suspect complicated grieving is playing a component in the patient's symptomatology. Other causes for symptoms could also be due to GERD. -appreciate cardiology evaluation and recommendation, ruled out for acute FL by serial troponin EKG -likely due to heat exhaustion per Cardiology -heparin drip was discontinued per Cardiology -cardiology ordered Lexiscan stress test and echocardiogram (2) Heat exhaustion: Code(s): T67.5XXA - Heat exhaustion, unspecified, initial encounter Status: Acute (3) Generalized anxiety disorder: Code(s): F41.1 - Generalized anxiety disorder Status: Acute Assessment and Plan: Continue prior to admission medication (4) Palpitations: Code(s): R00.2 - Palpitations Status: Acute Assessment and Plan: Likely related to anxiety (5) GERD (gastroesophageal reflux disease): Qualifiers: Esophagitis presence: esophagitis presence not specified Qualified Code(s): K21.9 - Gastro-esophageal reflux disease without esophagitis Code(s): K21.9 - Gastro-esophageal reflux disease without esophagitis Status: Acute Assessment and Plan: Continue proton (6) Dental infection: Code(s): K04.7 - Periapical abscess without sinus Status: Acute Assessment and Plan: Continue Amoxiclav and keep dental appt next week (7) Elevated blood pressure reading: Code(s): R03.0 - Elevated blood-pressure reading, without diagnosis of hypertension Status: Acute Assessment and Plan: - Metoprolol was started for elevated bp readings, anxiety, palpitations, highest reading was 187/96 and pressure was consistently elevated throughout her stay - 150/90 prior to discharge - She has not prior hx of hbp and will need outpatient f/u DS: Summary Hospital Course Reason for hospitalization: chest pain Hospital Course: 60 y/o f presented to ED 03/09 after 2 days of chest pressure. She has only a floor AC unit in her home where she lives with her dog. There is no AC in her bedroom. She had been gardening in the heat for the two days prior to admission. She felt lightheaded with headache, nausea and dry heaves. CBC showed mild elevation of WBC at 12.0. Troponins were negative. CMP was unremarkable. 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 But echo and lexiscan stress were WNL with NL EF. CXR was unremarkable. She felt better after IVF overnight and was tolerating her diet. She c/o dental pain right upper jaw that was worse for the past few days. This improved with po amoxiclav. She c/o of mild h/a and anxiety and asked for a dose of Klonopin, which she takes at home for PTSD. She tolerated her diet and was up and about independently on the day of discharge. Time Spent with Patient Time attestation: Total time spent providing and/or coordinating discharge services: Exam Narrative: General: Pleasant female in no acute distress HEENT:? Mild left-sided facial fullness and tenderness Neck:? No lymphadenopathy Respiratory:? Clear to auscultation bilateral Cardiac:? S1-S2 is normal, regular rate and rhythm Abdomen:? Soft, nontender, nondistended, normoactive bowel sounds Extremities:? Trace edema, palpable pedal pulses Neuro:? Patient is awake, alert, oriented x3, CN intact to inspection Skin:? Warm and dry, no lesions noted Psych:? Anxious, otherwise normal mentation Discharge Plan Discharge Consulting providers: Daniel Olmedo Discharging Clinician: Gui Gilbert Patient Disposition: Home Activity: as tolerated Diet: heart healthy and low sodium Patient Instructions: Antibiotic Form Patient Language: Prydeinig Stand Alone Forms: General Discharge Information Follow-up/Referrals: Tyrell Castillo DO [Primary Care Provider] - Keep Reg. Scheduled Appt. (She has an appointment next week. ) Discharge Medications: New acetaminophen 325 mg Tablet 650 mg PO Q6H PRN (Reason: Mild Pain (1-3) Or Fever) Qty: 60 0RF metoprolol tartrate 25 mg Tablet 25 mg PO Q12HR Qty: 20 0RF amoxicillin-pot clavulanate 875-125 mg tablet 1 tablet PO Q12H Qty: 14 0RF Rx Instructions: take with food Continued nortriptyline 25 mg capsule 25 mg PO QHS aspirin [Adult Low Dose Aspirin] 81 mg tablet,delayed release (DR/EC) 81 mg PO DAILY oxybutynin chloride 10 mg tablet extended release 24hr 10 mg PO DAILY B-complex with vitamin C Tablet 1 tablet PO DAILY pantoprazole [Protonix] 20 mg tablet,delayed release (DR/EC) 20 mg PO QAM albuterol sulfate 90 mcg/actuation HFA aerosol inhaler 2 inh inhalation Q4H MDD 6 puffs PRN (Reason: shortness of breath or wheezing) Qty: 8.5 1RF clonazepam 0.5 mg tablet 0.5 mg PO DAILY PRN (Reason: anxiety) Qty: 30 2RF No Action sumatriptan succinate 25 mg tablet See Rx Instructions PO .COMPLEX Qty: 9 5RF Rx Instructions: take 1 tab at onset of headache; if no relief may repeat 1 tab after at least 2 hrs; max = 4 tabs/24 hr PO pravastatin 10 mg tablet See Rx Instructions .ROUTE .COMPLEX Qty: 90 2RF Dose Instruction: TAKE 1 TABLET BY MOUTH EVERY DAY Rx Instructions: TAKE 1 TABLET BY MOUTH EVERY DAY Date of admission: 03/09/25 13:20 Primary Care Provider: Tyrell Castillo Admitting Provider: Deyanira Messina Attending physician on admission: Deyanira Messina Condition: Guarded Prognosis
[2025-03-10] MEDS: clonazePAM (*CRX) 0.5 MG TABLET 0.25 MG PO (12:36)
[2025-03-10] MEDS: PRAVASTATIN SODIUM 10 MG TABLET BY MOUTH (12:38)
== END 2025-03-10 15:00 | disposition home or self-care (01) ==
LOC: ANHED 04:52 → ANHICU 05:43 → ANH3MED 03-10 11:31 → ANHICU 03-12 08:23
PROVIDERS: Physician Assistant; Admitting Provider Internal Medicine; Emergency Provider Student in an Organized Health Care Education/Training Program; PCP Internal Medicine; Visit Provider Internal Medicine
DX: R07.9 Chest pain, unspecified (principal); T67.5XXA Heat exhaustion, unspecified, initial encounter; R00.2 Palpitations; F41.1 Generalized anxiety disorder; F43.21 Adjustment disorder with depressed mood; K04.7 Periapical abscess without sinus; R03.0 Elevated blood-pressure reading, without diagnosis of hypertension; E78.5 Hyperlipidemia, unspecified; Z87.891 Personal history of nicotine dependence; K21.9 Gastro-esophageal reflux disease without esophagitis; J45.909 Unspecified asthma, uncomplicated
CPT/HCPCS: 36415; 71045; 78452; 80053; 83605; 83690; 83880; 84484; 85025; 85610; 85730; 86850; 86900; 86901; 93005; 93017; 93306; 96360; 96361; 96374; 99285; A9270; A9502; G0378; G0379; J1644; J2405; J2785; J7120